=== PATIENT | female | born 1935 | race Caucasian/White ===

== ENCOUNTER 2016-12-29 20:57 | Inpatient (IN) | payer OTHER ==
[~2016-12-29] VITALS: Ht 152.4 cm; Wt 102.9 kg
[~2016-12-29 20:57] MED LIST: APR50 PO; ASCO100C2 PO; ASPI81TA28 PO; CFT250 PO; CHOL100010 PO; FERR1TAB13 PO; ISM20 PO; METO50TA17 PO; MULT-513 PO; NRV5 PO; NTRGSL/4 UT
[2016-12-29] MEDS ORDERED: AMPICILLIN/SULBACTAM SOD INJ 3,000 MG in SODIUM CHLORIDE 0.9% 100ML 100 ML IV ONE (22:00)
[2016-12-29 22:27] LABS: HEMATOCRIT 26.2 % (37-47); MEAN CELL VOLUME 84.5 fL (80-100); MEAN CORPUSCULAR HEMOGLOBIN 28.7 pg (25-34); MEAN PLATELET VOLUME 9.3 fL (7.4-10.4); PLATELET COUNT 124 K/uL (130-400); WHITE BLOOD COUNT 13.29 K/uL (4.8-10.8)
--- NOTE | 2016-12-29 22:33 | DIAGNOSTIC IMAGING REPORT ---
CT HEAD WITHOUT CONTRAST (CT) CLINICAL HISTORY: Altered mental status and weakness COMPARISON STUDY: No previous studies for comparison. TECHNIQUE: Axial CT of the brain is performed from the vertex to the skull base. IV contrast was not administered for this examination. CT DOSE: 537.48 mGy.cm FINDINGS: No intra or extra-axial mass lesions are visualized. There is no CT evidence of acute cortical infarction. There is no evidence of midline shift. There is no acute hemorrhage. No calvarial fractures are visualized. There are patchy white matter hypodensities likely on a small vessel basis. There is an old lacunar infarct in the left thalamus. There is no evidence of pathologic ventricular dilatation. There is no evidence of acute sinusitis IMPRESSION: No acute intracranial findings Electronically signed by: Enrique Devine M.D. 12/29/2016 10:31 PM Dictated Date/Time: 12/29/2016 10:31 PM
[2016-12-29 22:36] LABS: INR 1.4 (0.9-1.1); PARTIAL THROMBOPLASTIN RATIO 1.5; PROTHROMBIN TIME (PATIENT) 15.6 SECONDS (9.0-12.0)
--- NOTE | 2016-12-29 22:48 | DIAGNOSTIC IMAGING REPORT ---
CHEST ONE VIEW PORTABLE CLINICAL HISTORY: Altered mental status. Weakness. COMPARISON STUDY: 05/14/2016 FINDINGS: There is a small left pleural effusion. There are bibasal airspace opacities. There is mild central pulmonary vascular congestion.[ A small subpulmonic right pleural effusion is also suspected. Clinical and radiographic follow-up is recommended. IMPRESSION: 1. Small left pleural effusion and probable small subpulmonic right pleural effusion. 2. Multiple vascular congestion 3. Nonspecific bibasal airspace opacities Electronically signed by: Enrique Devine M.D. 12/29/2016 10:46 PM Dictated Date/Time: 12/29/2016 10:45 PM
[2016-12-29 23:13] LABS: ALKALINE PHOSPHATASE 58 U/L (45-117); ALT/SGPT 28 U/L (12-78); AST/SGOT 27 U/L (15-37); BLOOD UREA NITROGEN 109 mg/dl (7-18); BUN/CREATININE RATIO 20.5 (10-20); CALCIUM 8.7 mg/dl (8.5-10.1); CARBON DIOXIDE 14 mmol/L (21-32); CHLORIDE 112 mmol/L (98-107); CKMB/CK RATIO 16.4 (0-3.0); GLUCOSE 126 mg/dl (70-99); MAGNESIUM 2.7 mg/dl (1.8-2.4); POTASSIUM 5.2 mmol/L (3.5-5.1); SODIUM 140 mmol/L (136-145)
[2016-12-29 23:14] LABS: BASO % 0.1 %; BASO ABS # 0.01 K/uL (0-0.2); COMPLETE YES; ECHINOCYTES 1+; EOS % 0.2 %; IG% 0.3 %; LYMPH ABS # 0.27 K/uL (1.2-3.4); MONO % 5.1 %; NEUT % 92.3 %; TEAR DROP CELLS OCCASIONAL
--- NOTE | 2016-12-29 23:22 | EMERGENCY ROOM VISIT NOTE ---
History Report prepared by Gloria: Leslee Bahena Under the Supervision of: Dr. Felice Marques D.O. First contact with patient: 21:41 Chief Complaint: SWELLING TO EXTREMITY Stated Complaint: KIDNEY PROBLEMS, B/L ANKLE SWELLING History of Present Illness The patient is an 81 year old female who presents to the Emergency Room with complaints of worsening swelling in her bilateral lower legs. She is accompanied by several family members. Her family reports the swelling is due to the patients history of CKD, for which she follows with Dr. Denton at [facility]. She is not currently on dialysis but was started on Lasix by Dr. Denton "just a few days ago". Her family reports her legs now look much more swollen and "red and blistery" and state things seem to have worsened within the past 1 week. The patient was recently hospitalized for 3 days for similar symptoms and was sent home on antibiotics and hypertension medications. Her states "her legs got better when she was in the hospital, but now they look even worse". Her family also reports the patient has fallen twice within the past 2 weeks. She hit her head on her porch last week and fell out of bed yesterday. Her granddaughter reports they noticed her speech was off today and state "she just seems to be really slow, which is unusual for her". They also note her kidney functioning was approximately "12 percent, 1 year ago ". Her primary care physician is Dr. Berg with [facility]. Source of History: patient, family History Limited By: other (confusion) Onset: [employer]OCK HOU[employer] WORK[employer] Position: leg (bilateral) Quality: other (swelling) Timing: worsening Associated Symptoms: + weakness Review of Systems See HPI for pertinent positives & negatives. A total of 10 systems reviewed and were otherwise negative. Past Medical & Surgical Medical Problems: (1) CKD (chronic kidney disease), stage V (2) Diastolic CHF (3) HTN (hypertension) (4) Mitral regurgitation Family History Heart disease Social History Smoking Status: Never Smoker Alcohol Use: occasionally Drug Use: none Marital Status: Housing Status: lives with family Occupation Status: retired Current/Historical Medications Scheduled Amlodipine Besylate (Amlodipine Besylate), 5 MG PO QAM Ascorbic Acid (Vitamin C), 100 MG PO DAILY Aspirin (Aspirin Ec), 81 MG PO DAILY Cefuroxime Axetil (Cefuroxime Axetil), 250 MG PO DAILY Cholecalciferol (Vitamin D), 2,000 INTER.UNIT PO DAILY Ferrous Sulfate (Kp Ferrous Sulfate), 1 TAB PO DAILY Hydralazine HCl (Hydralazine HCl), 50 MG PO TID Isosorbide Mononitrate (Isosorbide Mononitrate), 30 MG PO BID@07,14 Metoprolol Tartrate (Metoprolol Tartrate), 50 MG PO BID Multivitamins/Minerals (Mvi With Minerals), 1 TAB PO DAILY Scheduled PRN Nitroglycerin (Nitrostat), 0.4 MG UT UD PRN for Chest Pain Allergies Coded Allergies: No Known Allergies (Unverified , 08/22/15) Physical Exam Vital Signs Date Time Temp Pulse Resp B/P Pulse Ox O2 Delivery O2 Flow Rate FiO2 12/29/16 23:19 58 18 134/65 96 Room Air 12/29/16 23:13 52 12/29/16 21:18 59 24 134/73 96 Room Air Physical Exam CONSTITUTIONAL/VITAL SIGNS: Reviewed / noted above. GENERAL: Non-toxic in appearance. INTEGUMENTARY: Warm, dry, and Ozone. HEAD: Normocephalic. EYES: without scleral icterus or trauma. ENT/OROPHARYNX: clear and moist. LYMPHADENOPATHY/NECK: Is supple without lymphadenopathy or meningismus. RESPIRATORY: Lungs clear and equal. CARDIOVASCULAR: Regular rate and rhythm. GI/ABDOMEN: Soft and nontender. No organomegaly or pulsatile mass. No rebound or guarding. Normal bowel sounds. EXTREMITIES: Lower extremity edema with erythema, also a few large water blisters on the lower extremities BACK: No CVA tenderness. NEUROLOGICAL: Intact without focal deficits. PSYCHIATRIC: normal affect. MUSCULOSKELETAL: Normally developed with good muscle tone. Medical Decision & Procedures ER Provider Diagnostic Interpretation: This CT scan was reviewed and interpreted by the radiologist and reviewed by myself. CT HEAD WITHOUT CONTRAST (CT) IMPRESSION: No acute intracranial findings Electronically signed by: Enrique Devine M.D. 12/29/2016 10:31 PM This X-Ray was reviewed and interpreted by myself and the radiologist. CHEST ONE VIEW PORTABLE IMPRESSION: 1. Small left pleural effusion and probable small subpulmonic right pleural effusion. 2. Multiple vascular congestion 3. Nonspecific bibasal airspace opacities Electronically signed by: Enrique Devine M.D. 12/29/2016 10:46 PM Laboratory Results 12/29/16 22:10 Red Blood Count 3.10, Mean Corpuscular Volume 84.5, Mean Corpuscular Hemoglobin 28.7, Mean Corpuscular Hemoglobin Concent 34.0, Mean Platelet Volume 9.3, Neutrophils (%) (Auto) 92.3, Lymphocytes (%) (Auto) 2.0, Monocytes (%) (Auto) 5.1, Eosinophils (%) (Auto) 0.2, Basophils (%) (Auto) 0.1, Neutrophils # (Auto) 12.27, Lymphocytes # (Auto) 0.27, Monocytes # (Auto) 0.68, Eosinophils # (Auto) 0.02, Basophils # (Auto) 0.01 12/29/16 22:10 Test 12/29/16 22:10 White Blood Count 13.29 K/uL (4.8-10.8) Red Blood Count 3.10 M/uL (4.2-5.4) Hemoglobin 8.9 g/dL (12.0-16.0) Hematocrit 26.2 % (37-47) Mean Corpuscular Volume 84.5 fL (80-100) Mean Corpuscular Hemoglobin 28.7 pg (25-34) Mean Corpuscular Hemoglobin Concent 34.0 g/dl (32-36) Platelet Count 124 K/uL (130-400) Mean Platelet Volume 9.3 fL (7.4-10.4) Neutrophils (%) (Auto) 92.3 % Lymphocytes (%) (Auto) 2.0 % Monocytes (%) (Auto) 5.1 % Eosinophils (%) (Auto) 0.2 % Basophils (%) (Auto) 0.1 % Neutrophils # (Auto) 12.27 K/uL (1.4-6.5) Lymphocytes # (Auto) 0.27 K/uL (1.2-3.4) Monocytes # (Auto) 0.68 K/uL (0.11-0.59) Eosinophils # (Auto) 0.02 K/uL (0-0.5) Basophils # (Auto) 0.01 K/uL (0-0.2) RDW Standard Deviation 52.2 fL (36.4-46.3) RDW Coefficient of Variation 17.0 % (11.5-14.5) Immature Granulocyte % (Auto) 0.3 % Immature Granulocyte # (Auto) 0.04 K/uL (0.00-0.02) Nucleated RBC Absolute Count (auto) 0.18 K/uL (0-0) Nucleated Red Blood Cells % 1.3 % Tear Drop Cells OCCASIONAL Echinocytes 1+ Prothrombin Time 15.6 SECONDS (9.0-12.0) Prothromb Time International Ratio 1.4 (0.9-1.1) Activated Partial Thromboplast Time 39.4 SECONDS (21.0-31.0) Partial Thromboplastin Ratio 1.5 Anion Gap 14.0 mmol/L (3-11) Estimated GFR () 7.9 Estimated GFR (Non- 6.8 BUN/Creatinine Ratio 20.5 (10-20) Calcium Level 8.7 mg/dl (8.5-10.1) Magnesium Level 2.7 mg/dl (1.8-2.4) Total Bilirubin 0.3 mg/dl (0.2-1) Direct Bilirubin 0.1 mg/dl (0-0.2) Aspartate Amino Transf (AST/SGOT) 27 U/L (15-37) Alanine Aminotransferase (ALT/SGPT) 28 U/L (12-78) Alkaline Phosphatase 58 U/L (45-117) Total Creatine Kinase 116 U/L (26-192) Creatine Kinase MB 19.0 ng/ml (0.5-3.6) Creatine Kinase MB Ratio 16.4 (0-3.0) Troponin I < 0.015 ng/ml (0-0.045) Total Protein 6.6 gm/dl (6.4-8.2) Albumin 2.8 gm/dl (3.4-5.0) Lipase 314 U/L (73-393) Thyroid Stimulating Hormone (TSH) 5.360 uIu/ml (0.300-4.500) Laboratory results as stated above per my review. Medications Administered Medications (Trade) Dose Ordered Sig/Cj Route Start Time Stop Time Status Last Admin Dose Admin Ampicillin Sodium/ Sulbactam Sodium/ Sodium Chloride (Unasyn Inj/Nss 100ml) 108 ml @ 200 mls/hr ONE ONCE IV 12/29/16 22:00 12/29/16 22:32 DC 12/29/16 22:36 200 MLS/HR ECG Indication: weakness Rate (beats per minute): 60 Rhythm: normal sinus (normal sinus rhythm) Findings: RBBB, T-wave inversion (Anterolateral) ED Course 2142: Previous medical records were reviewed. The patient was evaluated in room C10. A complete history and physical examination was performed. 2199: Ampicillin Sodium/Sulbactam Sodium 3000 mg/Sodium Chloride 108 ml @ 200 mls/hr IV. 0: I discussed the patients case with Lizet Clement. The patient will be further evaluated. Medical Decision Etiologies such as cellulitis, abscess, MRSA infection, DVT, necrotizing fasciitis, dermatitis, drug eruption, as well as others were entertained.. This is a 81-year-old female who presents to the ED with a chief complaint of lower extremity edema and redness. The patient is also been somewhat confused recently. She fell earlier this week. The patient has known renal insufficiency. She has been seeing on Coumadin for this. Her vital signs are normal. Her exam reveals lower extremity edema with evidence of bilateral cellulitis with skin breakdown and weeping. There are also some Water filled bullae. The patient's EKG shows a normal sinus rhythm with some T-wave inversions anteriorly. These are worse than previous EKGs. Chest x-ray is nonspecific findings but nothing acute. Chest CT scan of the head did not show acute disease. Hemoglobin is 8.9. White blood cell count is 13.2. Potassium is 5.2. The BUN is 109 and creatinine is 5.4. Troponin is negative. The patient was told results the test per she was started with IV Unasyn. The patient will be seen by the hospitalist for further evaluation and care. Consults Time Called: 2314 Consulting Physician: Lizet Clement Returned Call: 2320 I discussed the patients case with Lizet Clement. The patient will be further evaluated. Impression Primary Impression: Uremia Additional Impressions: Confusion Weakness Fall Cellulitis of both lower extremities CKD (chronic kidney disease), stage V Scribe Attestation The scribe's documentation has been prepared under my direction and personally reviewed by me in its entirety. I confirm that the note above accurately reflects all work, treatment, procedures, and medical decision making performed by me. Departure Information Dispostion Being Evaluated By Hospitalist Referrals Burke Berg MD (PCP) Patient Instructions My [facility] Problem Qualifiers
[2016-12-29] MEDS ORDERED: SODIUM BICARB 8.4% INJ 50 MEQ/50 ML SYR IV STA (23:31)
[2016-12-29] MEDS ORDERED: DEXTROSE 50% 50 ML SYR IV STA (23:35)
[2016-12-29] MEDS ORDERED: INSULIN HUMAN REGULAR PER UNIT 10 UNITS in SYRINGE 9.9 ML IV STA (23:37)
[2016-12-29] MEDS ORDERED: FRS/40 PO (23:52)
[2016-12-29] MEDS ORDERED: FERR325T5 PO (23:55)
[2016-12-29] MEDS ORDERED: ASCO500C43 PO (23:55)
[2016-12-29] MEDS ORDERED: ISOS60TA25 PO (23:56)
[2016-12-29] MEDS ORDERED: ASPI81TA28 PO (23:56)
[2016-12-29] MEDS ORDERED: NovoLIN-R INSULIN PER UNIT CHARGE ONE (23:59)
[2016-12-30] VITALS (9 sets, daily range): BP systolic 103–157; BP diastolic 52–68; PULSE 56–79; TEMP 34.2–36.5; O2SAT 94–99; Ht 152.4 cm; Wt 102.9 kg
[2016-12-30] MEDS ORDERED: PIPERACILLIN/TAZOBACTAM 4.5 GM/100ML D5W IV STA (00:18)
[2016-12-30] MEDS ORDERED: ACETAMINOPHEN 325 MG TAB PO PRN (00:30)
[2016-12-30] MEDS ORDERED: NITROGLYCERIN 0.4 MG SL PER TAB CHARGE SL PRN (00:30)
[2016-12-30] MEDS ORDERED: ALBUT/IPRATROP 3MG/0.5MG NEB 3 ML VIAL INH PRN (00:30)
[2016-12-30] MEDS ORDERED: TRAMADOL HCL 50 MG TAB PO PRN (00:30)
[2016-12-30] MEDS ORDERED: ONDANSETRON INJ 2 MG/ML 2 ML VIAL IV PRN (00:30)
[2016-12-30] MEDS ORDERED: HYDROmorphone INJ 0.5 MG/0.5 ML SYR IV PRN (00:30)
[2016-12-30] MEDS ORDERED: ALBUT/IPRATROP 3MG/0.5MG NEB 3 ML VIAL INH STA (01:08)
[2016-12-30] MEDS ORDERED: PATIENT'S HEIGHT AND/OR WEIGHT NEEDED SCH (02:00)
--- NOTE | 2016-12-30 02:43 | HISTORY & PHYSICAL EXAMINATION ---
DATE OF ADMISSION: 12/29/2016 PATIENT'S PRIMARY CARE DOCTOR: Dr. Berg. History obtained from patient, patient's family and records. CHIEF COMPLAINT: Bilateral leg swelling and infection. HISTORY OF PRESENT ILLNESS: Medical history significant for ESRD (baseline crea 4), hypertension, chronic anemia (baseline hemoglobin of 8-9), chronic diastolic heart failure as per records (EF of 65-70%, 2016). hx SVT as per records. Recent confinement May 2016 for hypertensive urgency. As per records, the last few weeks increasing weight gain of 20 pounds of fluid, worsening leg swelling. On a recent outpx [facility] visit about 2 weeks ago, dialysis recommended. The patient was unsure about dialysis; concerns about procedure that it might hurt. Progressive donald leg swelling, weight gain over the next few weeks. some sob. belly bloated, no abd pain. Patient also noted to be a little slow w/ her speech. About a week ago, increased leg swelling noted w/ blister appearance and subsequent rupture. LE wounds noted with foul-smelling drainage. No fever, no chills. Patient urged by family to consult ER. At the Emergency Room, the patient received Unasyn for leg wound infection. MEDICAL HISTORY: As above SURGICAL HISTORY: None. HOME MEDICATIONS: Include vitamin C, aspirin, vitamin D, ferrous sulfate, multivitamins, and Nitrostat. ALLERGIES: No known drug allergies. FAMILY HISTORY: Heart disease. PERSONAL SOCIAL HISTORY: Nonsmoker, no chronic intake of alcoholic beverages. 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 PHYSICAL EXAMINATION: VITAL SIGNS: Blood pressure was noted to be 134/65, pulse rate 58, RR 18, temperature 37 O2 sats 96% on room air. SKIN: Noted to be sallow. eating crackers SKIN : Pallor. HEENT : pale palpebral conjunctivae. Dry mucosa. NECK: JVD not assessed, supple. CHEST: Decreased effort. HEART: Bradycardic. ABDOMEN: Some distention, non-tender. EXTREMITIES: Bilateral lower extremity edema, yellow crusty lesions on the legs with foul-smelling drainage. NEUROLOGIC: No gross focality except for some slowed speech and response to questions. LABS: Hemoglobin was noted to be 8.9, hematocrit 26.2, white cells 13.29, platelets 124. Sodium 140, potassium 5.2, chloride 112, CO2 14, BUN 109, creatinine 5.4 from baseline of 4, glucose 126. Ammonia was 19. trop 0 IMAGING DATA: Chest x-ray showed some congestion, pleural effusion. CT of the head - no acute pathology, old lacunar infarct, left thalamus EKG rate-60, NSR, RBB, no ischemia ASSESSMENT AND PLAN: 1. hyperkalemia ESRD progressive symptoms of uremia 2. LE Cellulitis secondary to bilateral leg swelling from ESRD possible sepsis past history of Pseudomonas infection ro dvt 3. chronic diastolic HF, fluid overload from cardiorenal syndrome unresponsive to home diuretic tx 4. HTN, stable 5. old cerebrovascular accident on CAT scan 6. thrombocytopenia 7. anemia secondary to chronic kidney disease, hemoglobin baseline PLAN: PCU recheck K after Regular insulin, Na Bicarb now baseline UA, renal US Nephrology consult Patient might consider dialysis pending discussion with Nephrology. PX worried about potential pain from prospective vascular procedures. CS, Doxycycline, Zosyn WC nurse consult LE Venous dopplers ro dvt hold Norvasc for now (RE leg swelling) monitor BP off CCB Decrease maintenance BB dosage RE bradycardia. DVT prophylaxis. SCDs RE thrombocytopenia DNR. Px requesting updates from providers. Mr. Tony King at . MTDD
[2016-12-30] MEDS ORDERED: DOXYCYCLINE IV 100 MG in DEXTROSE 5% 100ML 100 ML IV STA (02:55)
[2016-12-30] MEDS ORDERED: PIPERACILL/TAZOBAC IV 3.375 GM in DEXTROSE 5% 100ML IV ONE (04:00)
[2016-12-30 04:08] LABS: HEMATOCRIT 25.9 % (37-47); MEAN CELL VOLUME 84.4 fL (80-100); MEAN CORPUSCULAR HEMOGLOBIN 28.7 pg (25-34); MEAN PLATELET VOLUME 9.8 fL (7.4-10.4); PLATELET COUNT 125 K/uL (130-400); RED BLOOD COUNT 3.07 M/uL (4.2-5.4); WHITE BLOOD COUNT 13.36 K/uL (4.8-10.8)
[2016-12-30 04:29] LABS: BASO % 0.1 %; BASO ABS # 0.01 K/uL (0-0.2); COMPLETE YES; ECHINOCYTES 1+; EOS % 0.1 %; IG% 0.3 %; LYMPH % 1.8 %; LYMPH ABS # 0.24 K/uL (1.2-3.4); MONO % 5.1 %; NEUT % 92.6 %
[2016-12-30 04:36] LABS: BLOOD UREA NITROGEN 102 mg/dl (7-18); BUN/CREATININE RATIO 18.6 (10-20); CALCIUM 8.3 mg/dl (8.5-10.1); CARBON DIOXIDE 15 mmol/L (21-32); CHLORIDE 113 mmol/L (98-107); GLUCOSE 117 mg/dl (70-99); POTASSIUM 4.8 mmol/L (3.5-5.1); SODIUM 143 mmol/L (136-145)
--- NOTE | 2016-12-30 06:56 | DIAGNOSTIC IMAGING REPORT ---
RENAL ULTRASOUND HISTORY: Renal insufficiency renal failure COMPARISON: None. FINDINGS: Right kidney: Maximum dimension 5.7 cm. General atrophy. No evidence for hydronephrosis. Normal corticomedullary differentiation and cortical thickness. Left kidney: Maximum dimension 8.5 cm. Mild atrophy. No evidence for hydronephrosis. Normal corticomedullary differentiation and cortical thickness. Bladder: No bladder wall thickening. The bilateral ureteral jets were identified. IMPRESSION: Atrophy of the kidneys. No evidence for hydronephrosis. Electronically signed by: Germain Bloom M.D. 12/30/2016 6:55 AM Dictated Date/Time: 12/30/2016 6:53 AM
--- NOTE | 2016-12-30 07:02 | DIAGNOSTIC IMAGING REPORT ---
ULTRASOUND BILATERAL LOWER EXTREMITY VENOUS CLINICAL HISTORY: Lower extremity swelling. COMPARISON STUDY: Bilateral lower extremity venous ultrasound dated 08/23/2015. TECHNIQUE: Real-time, grayscale, and color Doppler sonography of the deep veins of the right and left lower extremity was performed from the inguinal crease to the calf. Compression and augmentation were utilized. FINDINGS: There is no sonographic evidence of deep venous thrombosis identified in the right or left lower extremity. The common femoral, superficial femoral, and popliteal veins are patent and normally compressible bilaterally. The greater saphenous vein and the profunda femoris vein at the junction with the common femoral vein are clear in both legs. The visualized calf veins are patent bilaterally. Soft tissue edema is present in both legs. IMPRESSION: There is no sonographic evidence of deep venous thrombosis identified in the right or left lower extremity. Electronically signed by: Waylon Fam M.D. 12/30/2016 7:01 AM Dictated Date/Time: 12/30/2016 7:01 AM
--- NOTE | 2016-12-30 07:17 | DIAGNOSTIC IMAGING REPORT ---
Limited abdominal ultrasound ASCITES-ABDOMEN LIMITED CLINICAL HISTORY: abd distension ascites TECHNIQUE: Survey abdominal ultrasound COMPARISON STUDY: None FINDINGS: Trace amount of scattered ascites. Evaluation of pelvis essentially nondiagnostic due to oral and bowel content. IMPRESSION: Trace ascites. Limited evaluation of the pelvis due to overlying bowel content. Electronically signed by: Germain Bloom M.D. 12/30/2016 7:15 AM Dictated Date/Time: 12/30/2016 7:14 AM
[2016-12-30] MEDS: CALCIUM ACETATE 667MG GELCAP PO SCH ×3 (08:14→16:45)
[2016-12-30] MEDS: FERROUS SULFATE 325 MG TAB PO SCH (08:20)
[2016-12-30] MEDS: ASPIRIN 81 MG ECTAB PO SCH (08:20)
[2016-12-30] MEDS: METOPROLOL TARTRATE 50 MG TAB PO SCH ×2 (08:21→20:59)
[2016-12-30] MEDS: ISOSORBIDE MONONITRATE 60 MG TABCR PO SCH (08:22)
[2016-12-30] MEDS: CEROVITE ADV FORMULA TAB PO SCH (08:22)
[2016-12-30] MEDS: ALBUMIN 25% 50 ML with FUROSEMIDE INJ 40 MG IV SCH ×6 (08:23→21:01)
--- NOTE | 2016-12-30 08:23 | NEPHROLOGY CONSULTATION ---
DATE OF CONSULTATION: 12/30/2016 ATTENDING OF RECORD: Dr. Kennedy. REASON FOR CONSULTATION: CKD stage V. This is an 81-year-old female who follows in my outpatient clinic, has had progressive decline of her kidney function secondary to advanced age and uncontrolled hypertension. The patient's leg swelling continues to worsen. I have spoken to her numerous times about initiation of dialysis and what it entails. The patient has always said she does not want dialysis. Her has been in the room every time and is aware of her previous decisions. The patient now says that she is willing to consider doing dialysis but she is afraid of the procedure of the tunneled dialysis catheter. The patient's appetite is still good, does have some intermittent nausea and vomiting. Does have shortness of breath with exertion with significant swelling in the legs with blisters which appear infected with cellulitis. PAST MEDICAL HISTORY: CKD stage V, not on dialysis, severe mitral regurgitation, hypertension, diastolic heart failure. PAST SURGICAL HISTORY: None. FAMILY HISTORY: Significant for heart disease. SOCIAL HISTORY: No smoking, no alcohol, no drugs. Lives at home with her . REVIEW OF SYSTEMS: No significant weight loss. Positive fatigue. Positive shortness of breath. Positive swelling. No chest pain. Positive intermittent nausea and vomiting. No itching. No headaches. No dysphagia. All other review of systems otherwise negative. CURRENT MEDICATIONS: Doxycycline 100 mg IV b.i.d., Zosyn 3.375 IV q. 12, hydralazine 50 mg p.o. t.i.d., iron 325 mg daily, Imdur 60 mg daily, Lopressor 12.5 mg p.o. b.i.d., multivitamin daily, aspirin 81 mg daily. PHYSICAL EXAMINATION: VITAL SIGNS: Temperature 36.5, pulse 65, respiratory rate is 22, blood pressure is 157/64, satting 96% on room air. GENERAL: Awake, alert, oriented x3. EYES: No scleral icterus. ENT: Moist mucous membranes. NECK: Supple. PULMONARY: Decreased breath sounds at the bases. CARDIAC: Bradycardia. ABDOMEN: Mild abdominal distention. EXTREMITIES: Significant lower extremity edema with signs of cellulitis and open blisters. NEUROLOGIC: Answers questions appropriately but does answer them slowly, appears somewhat confused. LABORATORIES: White count is 13,000, H\T\H 8.8 and 25.9, platelet count is 125. Sodium level is 143, potassium is 4.8, chloride is 113, bicarbonate is 15, BUN is 102, creatinine is 5.5, glucose 117, calcium is 8.3. Troponin is negative x2. Ammonia level is 19. CK is 116. Albumin is 2.8. TSH is 5.3. INR is 1.4. Chest x-ray shows small left pleural effusion, probable small subpulmonic right pleural effusion, multiple vascular congestion. IMPRESSION AND PLAN: 1. Chronic kidney disease stage V. Creatinine has progressively worsened with worsening lower extremity swelling with signs of possible underlying cellulitis, now on IV antibiotics with a BUN above 100 and a creatinine of 5.5 with signs of volume overload. The patient has told me in the past that she does not want dialysis. The patient has not been enthusiastic about receiving healthcare throughout her entire life. Her has been in the room during these conversations and is aware of her previous decision. The patient does seem slow to answer questions and appears somewhat confused. The patient now says that she is willing to do dialysis, however, is scared of the procedure for the tunneled dialysis catheter. Unclear how well she would do on dialysis; however, I will have the vascular surgery department come and explain the procedure to her to see if she is willing to do the procedure, and if she is willing to do the procedure, I am willing to dialyze her. However, given her previous history and her previous conversations, unclear if she will be compliant with dialysis and/or continue to do dialysis long-term. We will contact vascular surgeons, and if able to do the tunneled dialysis catheter today, we will plan on a short treatment today. In terms of her volume overload, we will give her albumin and Lasix to try to help diurese the patient. Okay with the creatinine worsening since dialysis may be an option for her. If dialysis is not an option, would recommend palliative care consultation with hospice. 2. KEYON: We will also start the patient on phosphate binders to help control the phosphorous levels. 3. Anemia of end-stage renal disease. Hemoglobin levels are trending down. We will hold off on starting Procrit at this time since I need to sit down and talk to her about the side effects and risks of Procrit. 4. Metabolic acidosis-unable to give sodium bicarb given her significant volume overloaded state. will correct with dialysis if pt agrees to the tunneled dialysis catheter. For now, we will focus in on whether or not she is willing to do the tunneled dialysis catheter, and if she is, we will plan on a short dialysis treatment and dialyze her to help with her mental status and volume status and then we can decide at that point whether she would like chronic dialysis or not. Appreciate consultation. BERNADINE
[2016-12-30] MEDS ORDERED: PIPERACILL/TAZOBAC CONSULT ACTIVE PRN (09:00)
[2016-12-30 12:07] LABS: URINE APPEARANCE CLOUDY (CLEAR); URINE BILIRUBIN NEG (NEG); URINE COLOR YELLOW; URINE NITRITE NEG (NEG); URINE SPECIFIC GRAVITY 1.019 (1.000-1.030); UROBILINOGEN NEG (NEG); ZZUR CULT IF INDIC CLEAN CATCH NO
[2016-12-30 12:11] LABS: MANUAL MICROSCOPIC REQUIRED? NO; REVIEW REQ? NO
--- NOTE | 2016-12-30 13:11 | Progress Note ---
Internal Med Progress Note Date of Service: Dec 30, 2016. Provider Documentation: SUBJECTIVE: Patient is having difficulty swallowing food, says not able to get it down. Some coughing on and off while eating. No odynophagia. SOB +, no cough. No chest pain, fever, chills. Mental status- Slow to respond, oriented to place, person. Tele- sinus mukesh with HR dropping to 40s OBJECTIVE: Vital Signs-as noted below Exam: General-AAOX2, slow to respond, Mild respiratory distress Neck-Supple Lungs-AEBE decreased, few crackles Heart-S1, S2 normal Abdomen-Soft, non tender, non distended, BS present Extremities-B.L Lower extremity edema + dressing + - cellulitis Neuro- Slow to respond, Grossly no deficits Skin- Yeast infection b/l groin/Left breast Lab data as noted below. ASSESSMENT & PLAN: LOWER EXTREMITY CELLULITIS Secondary to Bilateral Lower extremity swelling from ESRD Patient has had B/L Lower ext cellulitis for more than a year, would not allow any one to look at it. Had blister which bursted with yellowish discharge -Afebrile -On IV Zosyn/Doxycycline. Norvasc held due to LE edema. -Cultures ordered, Wound care on board ACUTE ON CHRONIC DIASTOLIC CHF -Fluid overloaded in setting of CKD-V, progressively worsening and refusing dialysis -IV lasix/Albumin given. -Mx as below CKD-V Patient has been offered dialysis in past, but she has refused multiple times per Dr Denton and the discussions have been in front of who is aware about it. Today dialysis option was discussed by Dr Denton, me --she says she is okay with dialysis but doesnt want catheter. Vascular sx was consulted for catheter and she refused to sign the consent form as she was scared. -Not sure how would she do on dialysis as not taking care of her self, doubt compliance with dialysis, follow ups, not able to take care of her that well due to his age. -Discussed with family about options of dialysis /palliative care. Leaning more towards palliative care as knowing their mother she would not want to go through dialysis and would not do well on it, also would not be willing to go to a [facility]. -Phosphate binders added SINUS BRADYCARDIA Asymptomatic -Beta blockers held -Monitor DYSPHAGIA Patient does have difficulty swallowing- high risk of aspiration. No odynophagia -Will discontinue diet and ordered swallow/speech evaluation -Aspiration precautions FUNGAL INFECTION B/L Groins, Left breast -Clotrimazole cream HTN- Stable HX OF OLD CVA Per CT scan THROMBOCYTOPENIA/ANEMIA OF CHRONIC KIDNEY DISEASE -No signs of active bleeding -Nephrology on board DVT prophylaxis. SCDs RE thrombocytopenia DNR/DNI Px requesting updates from providers. Mr. Tony King at . Did a family meeting with both sons and daughter in law- discussed about options - Dialysis/Palliative care. Leaning towards palliative care. Will let me know by tomorrow after discussing with other son and daughter. Vital Signs: Date Time Temp Pulse Resp B/P Pulse Ox O2 Delivery O2 Flow Rate FiO2 12/30/16 12:50 36.4 59 16 115/52 98 Nasal Cannula 2.0 12/30/16 12:00 99 Nasal Cannula 2.0 12/30/16 08:00 96 Room Air 12/30/16 07:48 36.4 56 16 113/68 96 Room Air 12/30/16 03:30 36.5 65 22 157/64 96 Room Air 12/29/16 23:19 58 18 134/65 96 Room Air 12/29/16 23:13 52 12/29/16 21:18 59 24 134/73 96 Room Air Lab Results: Results Past 24 Hours Test 12/29/16 22:10 12/29/16 23:55 12/30/16 00:00 12/30/16 03:55 Range/Units White Blood Count 13.29 13.36 4.8-10.8 K/uL Red Blood Count 3.10 3.07 4.2-5.4 M/uL Hemoglobin 8.9 8.8 12.0-16.0 g/dL Hematocrit 26.2 25.9 37-47 % Mean Corpuscular Volume 84.5 84.4 80-100 fL Mean Corpuscular Hemoglobin 28.7 28.7 25-34 pg Mean Corpuscular Hemoglobin Concent 34.0 34.0 32-36 g/dl Platelet Count 124 125 130-400 K/uL Mean Platelet Volume 9.3 9.8 7.4-10.4 fL Neutrophils (%) (Auto) 92.3 92.6 % Lymphocytes (%) (Auto) 2.0 1.8 % Monocytes (%) (Auto) 5.1 5.1 % Eosinophils (%) (Auto) 0.2 0.1 % Basophils (%) (Auto) 0.1 0.1 % Neutrophils # (Auto) 12.27 12.37 1.4-6.5 K/uL Lymphocytes # (Auto) 0.27 0.24 1.2-3.4 K/uL Monocytes # (Auto) 0.68 0.68 0.11-0.59 K/uL Eosinophils # (Auto) 0.02 0.02 0-0.5 K/uL Basophils # (Auto) 0.01 0.01 0-0.2 K/uL RDW Standard Deviation 52.2 51.5 36.4-46.3 fL RDW Coefficient of Variation 17.0 17.0 11.5-14.5 % Immature Granulocyte % (Auto) 0.3 0.3 % Immature Granulocyte # (Auto) 0.04 0.04 0.00-0.02 K/uL Nucleated RBC Absolute Count (auto) 0.18 0.18 0-0 K/uL Nucleated Red Blood Cells % 1.3 1.3 % Tear Drop Cells OCCASIONAL Echinocytes 1+ 1+ Prothrombin Time 15.6 9.0-12.0 SECONDS Prothromb Time International Ratio 1.4 0.9-1.1 Activated Partial Thromboplast Time 39.4 21.0-31.0 SECONDS Partial Thromboplastin Ratio 1.5 Sodium Level 140 143 136-145 mmol/L Potassium Level 5.2 4.8 3.5-5.1 mmol/L Chloride Level 112 113 98-107 mmol/L Carbon Dioxide Level 14 15 21-32 mmol/L Anion Gap 14.0 15.0 3-11 mmol/L Blood Urea Nitrogen 109 102 7-18 mg/dl Creatinine 5.40 5.50 0.60-1.20 mg/dl Estimated GFR () 7.9 7.7 Estimated GFR (Non- 6.8 6.6 BUN/Creatinine Ratio 20.5 18.6 10-20 Random Glucose 126 117 70-99 mg/dl Calcium Level 8.7 8.3 8.5-10.1 mg/dl Magnesium Level 2.7 1.8-2.4 mg/dl Total Bilirubin 0.3 0.2-1 mg/dl Direct Bilirubin 0.1 0-0.2 mg/dl Aspartate Amino Transf (AST/SGOT) 27 15-37 U/L Alanine Aminotransferase (ALT/SGPT) 28 12-78 U/L Alkaline Phosphatase 58 45-117 U/L Total Creatine Kinase 116 26-192 U/L Creatine Kinase MB 19.0 0.5-3.6 ng/ml Creatine Kinase MB Ratio 16.4 0-3.0 Troponin I < 0.015 < 0.015 0-0.045 ng/ml Total Protein 6.6 6.4-8.2 gm/dl Albumin 2.8 3.4-5.0 gm/dl Lipase 314 73-393 U/L Thyroid Stimulating Hormone (TSH) 5.360 0.300-4.500 uIu/ml Free Thyroxine 1.01 0.80-1.60 ng/dl Lactic Acid Level 1.3 0.4-2.0 mmol/L Ammonia 19.0 11-32 umol/L Urine Color YELLOW Urine Appearance CLOUDY CLEAR Urine pH 5.0 4.5-7.5 Urine Specific [place] 1.019 1.000-1.030 Urine Protein 1+ NEG Urine Glucose (UA) NEG NEG Urine Ketones NEG NEG Urine Occult Blood NEG NEG Urine Nitrite NEG NEG Urine Bilirubin NEG NEG Urine Urobilinogen NEG NEG Urine Leukocyte Esterase NEG NEG Urine WBC (Auto) 1-5 0-5 /hpf Urine RBC (Auto) 5-10 0-4 /hpf Urine Hyaline Casts (Auto) 1-5 0-5 /lpf Urine Epithelial Cells (Auto) 5-10 0-5 /lpf Urine Bacteria (Auto) NEG NEG Est Creatinine Clear Calc Drug Dose 6.8 ml/min Test 12/30/16 08:26 Range/Units Phosphorus Level 6.5 2.5-4.9 mg/dl 25-Hydroxy Vitamin D Total 30.0 30-100 ng/ml Parathyroid Hormone (Intact) 210.7 11.1-79.5 pg/mL Microbiology Results 12/29/16 Blood Culture, Received Pending 12/29/16 Blood Culture, Received Pending 12/30/16 Gram Stain - Final, Resulted 12/30/16 Wound Culture, Resulted Pending
[2016-12-30] MEDS: CLOTRIMAZOLE 1% CR 15 GM TUBE EXT SCH (14:39)
--- NOTE | 2016-12-30 15:55 | Surgery Consultation ---
Consultation Date of Service Dec 30, 2016. (Kristi Samayoa, MAURIZIO) Chief Complaint ESRD, need permcath (Kristi Samayoa PA-C) History of Present Illness The patient is a 81 year old female admitted with ESRD and BLE cellulitis/edema , seen in consultation today for permcath placement. Pt stated this morning she was unsure whether she wanted to go through with catheter insertion d/t the risks involved. She apparently discussed further with Dr Denton and is now agreeable. Pt denies KEEN, fever, chills, chest pain, SOB, abd pain, N/V, rest pain, claudication, other complaints. (Kristi Samayoa, MAURIZIO) Vitals Vital Signs Past 12 Hours Date Time Temp Pulse Resp B/P Pulse Ox O2 Delivery O2 Flow Rate FiO2 12/30/16 12:50 36.4 59 16 115/52 98 Nasal Cannula 2.0 12/30/16 12:00 99 Nasal Cannula 2.0 12/30/16 08:00 96 Room Air 12/30/16 07:48 36.4 56 16 113/68 96 Room Air (Kristi Samayoa, MAURIZIO) Allergies Coded Allergies: No Known Allergies (Unverified , 08/22/15) Home Medications Scheduled Amlodipine Besylate (Amlodipine Besylate), 5 MG PO QAM Ascorbic Acid (Vitamin C), 100 MG PO DAILY Ascorbic Acid (Vitamin C 500 mg), 500 MG PO DAILY Aspirin (Aspirin Ec), 81 MG PO 4XWK Ferrous Sulfate (Ferrous Sulfate), 325 MG PO DAILY Furosemide (Lasix), 40 MG PO DAILY Hydralazine HCl (Hydralazine HCl), 50 MG PO TID Isosorbide Mononitrate Ext Rel (Imdur Ext Rel), 60 MG PO QAM Metoprolol Tartrate (Metoprolol Tartrate), 50 MG PO BID Multivitamins/Minerals (Mvi With Minerals), 1 TAB PO DAILY Scheduled PRN Nitroglycerin (Nitrostat), 0.4 MG UT UD PRN for Chest Pain Problem List Medical Problems: (1) ARF (acute renal failure) (2) CKD (chronic kidney disease), stage V (3) Diastolic CHF (4) HTN (hypertension) (5) Hyperkalemia (6) Mitral regurgitation (Kristi Samayoa PA-C) Surgical / Medical History Hx Cardiac Surgery: No Hx Abdominal Surgery: No Hx Cancer Surgery: No Hx Thoracic Surgery: No Hx Orthopedic: No Hx Urinary Tract Surgery: No HX Other Surgery: No Past Medical/Surgical History: Hypertension, Kidney Disease (Kristi Samayoa PA-C) Family History Heart disease (Kristi Samayoa PA-C) Heart disease (Ivan Acosta M.D.) Social History Smoking Status: Unknown if Ever Smoked Hx Tobacco Use In Past Year?: No Hx Alcohol Use - Type & Amnt: No Hx Substance Use -Type & Amnt: No (Kristi Samayoa, MAURIZIO) Review of Systems Constitutional: + malaise, No chills, No fever Skin: + change in color Eyes: No visual changes ENMT: No sore throat Respiratory: + BHATT, No cough, No hemoptysis, No short of breath Cardiovascular: + edema, No chest pain, No intermittent claudication, No palpitations, No syncope Gastrointestinal: No abdominal pain, No diarrhea, No nausea, No vomiting Genitourinary - Female: No dysuria Neurologic: No dizziness, No numbness, No tingling (Kristi Samayoa, JIMBOC) Physical Exam Constitutional: General Apperance: well-nourished, well-developed Level of Distress: NAD, chronically ill Psychiatric: Mental Status: active & alert, normal mood, normal affect Orientation: oriented except where noted, to time, to place, to person Memory: recent memory normal, remote memory normal Head: normocephalic, atraumatic Eyes: EOM: EOMI ENMT: normal ENT inspection, hearing grossly normal Neck: supple, trachea midline Lungs: Respiratory effort: no dyspnea Auscultation: no wheezing, no rales/crackles Cardiovascular: Apical Impulse: not displaced Heart Auscultation: RRR, no rubs, no gallops Peripheral Pulses: Pulses: full and equal, in all extremities except if noted Bruits: none appreciated Carotid Pulse: normal on the left, normal on the right Radial Pulse: normal on the left, normal on the right Femoral Pulse: normal on the left, normal on the right Posterior Tibialis Pulse: pertinent finding (nonpalpable d/t edema) Dorsalis Pedis Pulse: pertinent finding (nonpalpable d/t edema) Abdomen: Bowel Sounds: normal Inspection & Palpation: soft, non-distended, no tenderness, guarding & rebound Musculoskeletal: normal strength (5/5 throughout), normal tone Extremities: Upper Right: no cyanosis, no edema, no varicosities Upper Left: no cyanosis, no edema, no varicosities Lower Right: no cyanosis, no varicosities, edema Lower Left: no cyanosis, no varicosities, no palpable cord, edema Neurologic: Cranial Nerves: grossly intact (Kristi Samayoa, PA-C) Assessment and Plan ASSESSMENT and PLAN: ESRD Pt to have permcath inserted on . Discussed with pt and family. She is agreeable to permcath insertion. (Kristi Samayoa, PA-C)
[2016-12-30] MEDS: PIPERACILL/TAZOBAC IV 3.375 GM in DEXTROSE 5% 100ML IV SCH (16:44)
[2016-12-30] MEDS: DOCUSATE SODIUM 100 MG CAP PO SCH (20:58)
[2016-12-30] MEDS: NYSTATIN SUSP 500,000 U/5 ML UDC PO SCH (20:59)
[2016-12-30] MEDS: DOXYCYCLINE IV 100 MG in DEXTROSE 5% 100ML 100 ML IV SCH (21:49)
[2016-12-31] VITALS (40 sets, daily range): BP systolic 101–154; BP diastolic 44–81; PULSE 70–91; TEMP 35.5–36.4; O2SAT 83–99
[2016-12-31] MEDS: PIPERACILL/TAZOBAC IV 3.375 GM in DEXTROSE 5% 100ML IV SCH ×2 (04:15→16:36)
[2016-12-31 07:25] LABS: HEMATOCRIT 21.6 % (37-47); MEAN CELL VOLUME 82.8 fL (80-100); MEAN CORPUSCULAR HEMOGLOBIN 28.7 pg (25-34); MEAN CORPUSCULAR HGB CONC 34.7 g/dl (32-36); MEAN PLATELET VOLUME 9.8 fL (7.4-10.4); PLATELET COUNT 107 K/uL (130-400); RED BLOOD COUNT 2.61 M/uL (4.2-5.4); WHITE BLOOD COUNT 14.14 K/uL (4.8-10.8)
[2016-12-31] MEDS: CALCIUM ACETATE 667MG GELCAP PO SCH ×3 (07:30→16:08)
[2016-12-31 08:14] LABS: BUN/CREATININE RATIO 18.9 (10-20); CALCIUM 8.7 mg/dl (8.5-10.1); CREATININE 5.6 mg/dl (0.60-1.20); POTASSIUM 5.7 mmol/L (3.5-5.1)
[2016-12-31] MEDS: FERROUS SULFATE 325 MG TAB PO SCH (09:00)
[2016-12-31] MEDS: DOCUSATE SODIUM 100 MG CAP PO SCH ×2 (09:00→21:00)
[2016-12-31] MEDS: NYSTATIN SUSP 500,000 U/5 ML UDC PO SCH ×4 (09:00→23:19)
[2016-12-31] MEDS: ALBUMIN 25% 50 ML with FUROSEMIDE INJ 40 MG IV SCH ×6 (09:00→20:59)
[2016-12-31] MEDS: CLOTRIMAZOLE 1% CR 15 GM TUBE EXT SCH ×2 (09:00→23:19)
[2016-12-31] MEDS: CEROVITE ADV FORMULA TAB PO SCH (09:00)
[2016-12-31] MEDS: ASPIRIN 81 MG ECTAB PO SCH (09:00)
[2016-12-31] MEDS: ISOSORBIDE MONONITRATE 60 MG TABCR PO SCH (09:00)
[2016-12-31] MEDS: METOPROLOL TARTRATE 50 MG TAB PO SCH ×2 (09:00→21:00)
--- NOTE | 2016-12-31 09:12 | Nephrology Progress Note ---
Nephrology Progress Note Date of Service: Dec 31, 2016. Subjective 81 yo female with ckd stage 5, weeping wounds on legs with significant edema, excoriations of the buttocks area from previous incontinence, dysphagia, hypothermia last night requiring a laura hugger. decreased urine output despite the albumin and lasix. worsening hyperkalemia and acidosis. Objective Date Time Temp Pulse Resp B/P Pulse Ox O2 Delivery O2 Flow Rate FiO2 12/31/16 04:06 36.2 12/31/16 04:01 Nasal Cannula 2.0 12/31/16 03:37 36.3 91 18 116/67 93 Nasal Cannula 2.0 12/31/16 00:00 Nasal Cannula 2.0 12/30/16 23:54 36.5 79 18 107/62 94 Nasal Cannula 2.0 12/30/16 21:08 34.2 12/30/16 20:04 Nasal Cannula 2.0 12/30/16 19:00 61 18 103/63 97 Nasal Cannula 2.0 12/30/16 16:00 Room Air 12/30/16 15:24 59 18 111/56 99 Nasal Cannula 2.0 12/30/16 12:50 36.4 59 16 115/52 98 Nasal Cannula 2.0 12/30/16 12:00 99 Nasal Cannula 2.0 Physical Exam: General-aaox2 with periods of delirium Eyes-no scleral icterus ENT-mmm Neck-supple Lungs-decreased at the bases Heart-rrr Abdomen-bs+ s/nt Extremities-+erythema and +2 edema with wounds on legs Neuro-periods of delirium Current Inpatient Medications Medications (Trade) Dose Ordered Sig/Cj Route Start Time Stop Time Status Last Admin Dose Admin Doxycycline Hyclate/Dextrose (Vibramycin IV/ D5 100ml) 110 ml @ 50 mls/hr BID IV 12/30/16 21:00 01/09/17 20:59 12/30/16 21:49 50 MLS/HR Piperacillin Sod/ Tazobactam Sod (Consult) 1 ea DAILY PRN N/A 12/30/16 09:00 01/29/17 08:59 Acetaminophen (Tylenol Tab) 650 mg Q4H PRN PO 12/30/16 00:30 01/29/17 00:29 Nitroglycerin (Nitrostat Tab) 0.4 mg UD PRN SL 12/30/16 00:30 01/29/17 00:29 Hydromorphone HCl (Dilaudid Inj) 0.5 mg Q6H PRN IV 12/30/16 00:30 01/13/17 00:29 Tramadol HCl (Ultram Tab) 25 mg Q6H PRN PO 12/30/16 00:30 01/29/17 00:29 Ondansetron HCl (Zofran Inj) 4 mg Q6H PRN IV 12/30/16 00:30 01/29/17 00:29 Ferrous Sulfate (Feosol Tab) 325 mg DAILY PO 12/30/16 09:00 01/29/17 08:59 12/30/16 08:20 325 MG Hydralazine HCl (Apresoline Tab) 50 mg TID PO 12/30/16 09:00 01/29/17 08:59 12/30/16 14:37 50 MG Isosorbide Mononitrate (Imdur Ext Rel Tab) 60 mg QAM PO 12/30/16 09:00 01/29/17 08:59 12/30/16 08:22 60 MG Metoprolol Tartrate (Lopressor Tab) 12.5 mg BID PO 12/30/16 09:00 01/29/17 08:59 Multivitamins/ Minerals (Multivitamin W/ Minerals Tab) 1 tab DAILY PO 12/30/16 09:00 01/29/17 08:59 12/30/16 08:22 1 TAB Albuterol/ Ipratropium (Duoneb) 3 ml Q2H PRN INH 12/30/16 00:30 01/29/17 00:29 Aspirin 81 mg 81 mg QAM PO 12/30/16 09:00 01/29/17 08:59 12/30/16 08:20 81 MG Piperacillin Sod/ Tazobactam Sod 3.375 gm/Dextrose 115 ml @ 28.75 mls/ hr Q12H IV 12/30/16 16:00 01/09/17 15:59 12/31/16 04:15 28.75 MLS/HR Furosemide/ Albumin Human (Lasix Inj/ Albumin 25%) 54 ml @ 54 mls/hr TID IV 12/30/16 09:00 01/02/17 08:59 12/30/16 21:01 54 MLS/HR Calcium Acetate (Phoslo Cap) 1,334 mg TIDM PO 12/30/16 07:30 01/29/17 07:29 12/30/16 11:46 1,334 MG Docusate Sodium (coLACE CAP) 100 mg BID PO 12/30/16 21:00 01/29/17 20:59 12/30/16 20:58 100 MG Clotrimazole (Lotrimin 1% Crm) 1 appln BID EXT 12/30/16 21:00 01/29/17 20:59 12/30/16 14:39 1 APPLN Nystatin (Mycostatin Susp) 5 ml QID PO 12/30/16 21:00 01/29/17 20:59 12/30/16 20:59 5 ML Last 24 Hours Test 12/31/16 06:50 White Blood Count 14.14 K/uL Red Blood Count 2.61 M/uL Hemoglobin 7.5 g/dL Hematocrit 21.6 % Mean Corpuscular Volume 82.8 fL Mean Corpuscular Hemoglobin 28.7 pg Mean Corpuscular Hemoglobin Concent 34.7 g/dl Platelet Count 107 K/uL Mean Platelet Volume 9.8 fL RDW Standard Deviation 50.8 fL RDW Coefficient of Variation 16.8 % Nucleated RBC Absolute Count (auto) 0.29 K/uL Nucleated Red Blood Cells % 2.1 % Sodium Level 141 mmol/L Potassium Level 5.7 mmol/L Chloride Level 112 mmol/L Carbon Dioxide Level 13 mmol/L Anion Gap 16.0 mmol/L Blood Urea Nitrogen 106 mg/dl Creatinine 5.60 mg/dl Est Creatinine Clear Calc Drug Dose 6.6 ml/min Estimated GFR () 7.5 Estimated GFR (Non- 6.5 BUN/Creatinine Ratio 18.9 Random Glucose 65 mg/dl Calcium Level 8.7 mg/dl Assessment & Plan CKD stage 5-pt with worsening hyperkalemia, periods of confusion. overall generalized weakness. cultures negative. spoke with vascular surgery, tentatively planned for tunneled line today and short dialysis treatment. pt though with overall poor prognosis with significant edema in legs and weeping wounds on appropriate antibiotics with dysphagia. once we appropriately dialyze patient, will reevaluate dysphagia. has worsening acidosis and hyperkalemia which should improve with dialysis. no fluid removal the first treatment, trying to correct the acidosis and hyperkalemia for now.
[2016-12-31 09:21] LABS: BASO % 0.1 %; BASO ABS # 0.01 K/uL (0-0.2); COMPLETE YES; ECHINOCYTES 1+; EOS % 0.3 %; IG% 0.4 %; LYMPH % 6.2 %; LYMPH ABS # 0.87 K/uL (1.2-3.4); MONO % 5.8 %; NEUT % 87.2 %
--- NOTE | 2016-12-31 09:41 | Progress Note ---
Progress Note Date of Service Dec 31, 2016. Progress Note Nephrology requesting permcath insertion today d/t pt condition deteriorating. blood cx neg. Attempted to obtain consent from pt, but unable d/t current mental status. contacted by phone, procedure, risks, benefits and alternatives discussed with , he expresses understanding and agreement. Witnessed by LAURA Rodriguez.
[2016-12-31] MEDS: DOXYCYCLINE IV 100 MG in DEXTROSE 5% 100ML 100 ML IV SCH ×2 (09:42→22:00)
--- NOTE | 2016-12-31 10:57 | Progress Note ---
Internal Med Progress Note Date of Service: Dec 31, 2016. Provider Documentation: SUBJECTIVE: Patient is more confused today, not able to have any meaningful conversation, but does follow simple commands. No odynophagia, but difficulty swallowing food. SOB +, no cough. No chest pain, fever, chills. Mental status- Worse today Tele-No more bradycardic episodes OBJECTIVE: Vital Signs-as noted below Exam: General-AAOx1, slow to respond Neck-Supple Lungs-AEBE decreased, few crackles at bases Heart-S1, S2 normal Abdomen-Soft, non tender, non distended, BS present Extremities-B.L Lower extremity edema + dressing + - cellulitis Neuro- Slow to respond, Grossly no deficits Skin- Yeast infection b/l groin/Left breast Lab data as noted below. ASSESSMENT & PLAN: LOWER EXTREMITY CELLULITIS WITH INFECTED WOUNDS: Secondary to Bilateral Lower extremity swelling from ESRD Patient has had B/L Lower ext cellulitis for more than a year, would not allow any one to look at it. Had blister which bursted with yellowish discharge -Afebrile -On IV Zosyn/Doxycycline (Day 3). Norvasc held due to LE edema. -Bl Cultures x 2 - negative, Wound culture - pseudomonas + follow up sensitivity ACUTE ON CHRONIC DIASTOLIC CHF -Fluid overloaded in setting of CKD-V, progressively worsening and refusing dialysis -IV lasix/Albumin given. -For dialysis today -Mx as below CKD-V Patient has been offered dialysis in past, but she has refused multiple times per Dr Denton and the discussions have been in front of who is aware about it. She refused to give consent for dialysis catheter but than again agreed. -Plan is to go for dialysis catheter placement/Dialysis- first rx today. -Not sure how would she do on dialysis as not taking care of her self, doubt compliance with dialysis, follow ups, not able to take care of her that well due to his age, but will respect her wishes and do it today. -Discussed with family about options of dialysis /palliative care both, opted for dialysis -Phosphate binders added SINUS BRADYCARDIA- Resolved Asymptomatic -Beta blockers re started with holding parameters -Monitor DYSPHAGIA Patient does have difficulty swallowing. No odynophagia -Speech evaluation done- recommended mechanical soft diet, but will hold off for procedure today -Aspiration precautions FUNGAL INFECTION B/L Groins, Left breast -Clotrimazole cream ordered HTN- Stable HX OF OLD CVA Per CT scan THROMBOCYTOPENIA/ANEMIA OF CHRONIC KIDNEY DISEASE -No signs of active bleeding -Nephrology on board DVT prophylaxis. SCDs RE thrombocytopenia DNR/DNI Px requesting updates from providers. Mr. Tony King at . DISPOSITION Continue with tele monitoring Vital Signs: Date Time Temp Pulse Resp B/P Pulse Ox O2 Delivery O2 Flow Rate FiO2 12/31/16 08:22 36.4 70 20 117/67 95 Nasal Cannula 2.0 12/31/16 04:06 36.2 12/31/16 04:01 Nasal Cannula 2.0 12/31/16 03:37 36.3 91 18 116/67 93 Nasal Cannula 2.0 12/31/16 00:00 Nasal Cannula 2.0 12/30/16 23:54 36.5 79 18 107/62 94 Nasal Cannula 2.0 12/30/16 21:08 34.2 12/30/16 20:04 Nasal Cannula 2.0 12/30/16 19:00 61 18 103/63 97 Nasal Cannula 2.0 12/30/16 16:00 Room Air 12/30/16 15:24 59 18 111/56 99 Nasal Cannula 2.0 12/30/16 12:50 36.4 59 16 115/52 98 Nasal Cannula 2.0 12/30/16 12:00 99 Nasal Cannula 2.0 Lab Results: Results Past 24 Hours Test 12/31/16 06:50 12/31/16 10:37 Range/Units White Blood Count 14.14 4.8-10.8 K/uL Red Blood Count 2.61 4.2-5.4 M/uL Hemoglobin 7.5 12.0-16.0 g/dL Hematocrit 21.6 37-47 % Mean Corpuscular Volume 82.8 80-100 fL Mean Corpuscular Hemoglobin 28.7 25-34 pg Mean Corpuscular Hemoglobin Concent 34.7 32-36 g/dl Platelet Count 107 130-400 K/uL Mean Platelet Volume 9.8 7.4-10.4 fL Neutrophils (%) (Auto) 87.2 % Lymphocytes (%) (Auto) 6.2 % Monocytes (%) (Auto) 5.8 % Eosinophils (%) (Auto) 0.3 % Basophils (%) (Auto) 0.1 % Neutrophils # (Auto) 12.35 1.4-6.5 K/uL Lymphocytes # (Auto) 0.87 1.2-3.4 K/uL Monocytes # (Auto) 0.82 0.11-0.59 K/uL Eosinophils # (Auto) 0.04 0-0.5 K/uL Basophils # (Auto) 0.01 0-0.2 K/uL RDW Standard Deviation 50.8 36.4-46.3 fL RDW Coefficient of Variation 16.8 11.5-14.5 % Immature Granulocyte % (Auto) 0.4 % Immature Granulocyte # (Auto) 0.05 0.00-0.02 K/uL Nucleated RBC Absolute Count (auto) 0.29 0-0 K/uL Nucleated Red Blood Cells % 2.1 % Echinocytes 1+ Sodium Level 141 136-145 mmol/L Potassium Level 5.7 3.5-5.1 mmol/L Chloride Level 112 98-107 mmol/L Carbon Dioxide Level 13 21-32 mmol/L Anion Gap 16.0 3-11 mmol/L Blood Urea Nitrogen 106 7-18 mg/dl Creatinine 5.60 0.60-1.20 mg/dl Est Creatinine Clear Calc Drug Dose 6.6 ml/min Estimated GFR () 7.5 Estimated GFR (Non- 6.5 BUN/Creatinine Ratio 18.9 10-20 Random Glucose 65 70-99 mg/dl Calcium Level 8.7 8.5-10.1 mg/dl
--- NOTE | 2016-12-31 11:01 | Clinical Documentation Query ---
CLINICAL DOCUMENTATION QUERY Dr. GUAMAN, In your clinical opinion is this patient being managed for: ( + ) Metabolic encephalopathy ( ) Other explanation of clinical findings (Please Explain) ( ) Unable to determine (Please Define) ( ) Need to Discuss ( ) Not Agree The medical record reflects the following clinical findings, treatment, and risk factors. Clinical Indicators: 81 yo female presenting with worsening cardiorenal status. Reportedly pt confused and slower to respond. CT head without acute findings. WBC 13.29, Hgb 8.9, Hct 26.2, plts 124, K 5.2, BUN 109, Cr 5.4 Treatment: IV unasyn, IV doxycycline, IV zosyn, CT head, tele, IV lasix/albumin, nephrology consult Risk Factors: CKD stage V, acute on chronic diastolic CHF, LE cellulitis Please clarify and document your clinical opinion in the progress notes and discharge summary. Terms such as "probable", "suspected", "likely", "questionable", "possible", or "still to be ruled out" are acceptable. IF IN AGREEMENT, YOU MUST DOCUMENT ABOVE DIAGNOSTIC STATEMENT IN DAILY PROGRESS NOTES AND DISCHARGE SUMMARY. This document is not part of the patient's record. Thank You, Jennifer Ku, LAURA [phone]
[2016-12-31 11:32] LABS: HEPATITIS B AB NEG
[2016-12-31] MEDS ORDERED: FENTANYL CITRATE INJ 50 MCG/1 ML 2 ML VIAL ONE (12:32)
[2016-12-31] MEDS ORDERED: MIDAZOLAM HCL 1 MG/ML 2ML VIAL ONE (12:32)
[2016-12-31] MEDS ORDERED: HEPARIN SOD (PORCINE) 5000 UNIT/ML 1 ML VIAL ONE (12:33)
--- NOTE | 2016-12-31 12:41 | Progress Note ---
Progress Note Date of Service Dec 31, 2016. Progress Note Patient for permcath placement today. Patient was seen, examined, and chart reviewed. Agree with exam and treatment plan of the Vascular PA. I have discussed the risks options and benefits of the procedure with the patient. The patient understands the risks options and benefits and agrees to the procedure. I have examined the patient, reviewed the History & Physical and in the interval since the performance of the History & Physical I have noted the following changes of clinical significance: No changes noted
--- NOTE | 2016-12-31 12:42 | Procedure Note ---
Pre-Mod Sedation Assessment General Date of Moderate Sedation: Dec 31, 2016. Vital Signs: Vital Signs Past 12 Hours Date Time Temp Pulse Resp B/P Pulse Ox O2 Delivery O2 Flow Rate FiO2 12/31/16 12:13 36.4 74 22 124/68 96 Nasal Cannula 2.0 12/31/16 12:00 97 Nasal Cannula 2.0 12/31/16 11:35 36.3 76 20 123/70 95 Nasal Cannula 3.0 12/31/16 08:22 36.4 70 20 117/67 95 Nasal Cannula 2.0 12/31/16 08:00 96 Nasal Cannula 2.0 12/31/16 04:06 36.2 12/31/16 04:01 Nasal Cannula 2.0 12/31/16 03:37 36.3 91 18 116/67 93 Nasal Cannula 2.0 Pre-Sedation Airway Assessment Oral Cavity: Dentures Short Thick Neck: No Hx of Sleep Apnea: No Smoking Status: Never Smoker Mallampati Classification: Class I ASA Classification: Class II Notes The planned sedation has been discussed with the patient and consent obtained. I have identified the patient, determined the appropriateness of sedation and have assessed the patient immediately prior to the procedure. All medicine(s) and interventions are by my order.
[2016-12-31] MEDS ORDERED: LIDOCAINE HCL 1% 20 ML VIAL SQ ONE (13:32)
[2016-12-31] MEDS ORDERED: HEPARIN SOD (PORCINE) 5000 UNIT/ML 1 ML VIAL IV ONE (13:32)
--- NOTE | 2016-12-31 14:04 | DIAGNOSTIC IMAGING REPORT ---
DATE OF PROCEDURE: 12/31/2016 PREOPERATIVE DIAGNOSIS: End-stage renal disease with need for long-term dialysis access. POSTOPERATIVE DIAGNOSIS: Same. PROCEDURE: Insertion of a right internal jugular tunneled dialysis catheter. SURGEON: Dr. Ivan Acosta. SOFTWARE INTEGRATION DEVELOPER: Dr. Mukesh Nichols. ANESTHESIA: Local anesthesia only. ESTIMATED BLOOD LOSS: 5 mL. COMPLICATIONS: None. INDICATIONS: This is an 81-year-old female admitted to hospital with multiple medical problems. She has progressed to end-stage renal disease with need for dialysis. 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 Risks, benefits, and alternatives were explained to the patient and her family members and they agreed to proceed. OPERATION: The patient was brought to the endovascular suite and placed in supine position. The right neck and chest were prepped and draped in normal sterile fashion. A timeout was performed and all parties agreed to correct patient and procedure to be performed. Appropriate surgical prophylactic antibiotics were administered within one hour of the incision. Under ultrasound guidance, the right internal jugular vein was accessed on the first attempt. A wire was passed to the level of the superior vena cava. Next, the entire tract and right chest wall were numbed with local anesthetic. A small transverse incision was made in the superior aspect of the right chest. The catheter was tunneled from the chest up through the neck incision. Next, over the wire the dilator was passed followed by the insertion sheath. The end of the catheter was advanced through the sheath under fluoroscopic guidance. After completion of this, there was a small kink in the catheter. For this reason, a Glidewire was brought into the field and advanced through the catheter. This, along with gentle retraction of the catheter, straightened it completely. The catheter ports withdrew and flushed easily. The catheter was sutured in place. Heparinized saline was instilled into the end of the ports. At completion fluoroscopic image showed the catheter to be in good position with no residual kink. The patient was taken to recovery room in satisfactory condition with no apparent complications. IDr. Acosta was present and scrubed for the entire procedure. [facility]
--- NOTE | 2016-12-31 19:46 | DIAGNOSTIC IMAGING REPORT ---
CHEST ONE VIEW PORTABLE CLINICAL HISTORY: Shortness of breath COMPARISON STUDY: 12/29/2016 FINDINGS: The heart is mildly enlarged. There is radiographic evidence of congestive failure/fluid overload with mild interstitial edema. There are small bilateral pleural effusions. Left basal airspace opacities likely representing compressive atelectasis. There is been interval placement of a double-lumen right internal jugular central venous catheter. No pneumothorax is visualized.[ IMPRESSION: Worsening congestive failure/fluid overload. Left basal airspace opacity, likely representing compressive atelectasis. Electronically signed by: Enrique Devine M.D. 12/31/2016 7:45 PM Dictated Date/Time: 12/31/2016 7:44 PM
[2016-12-31] MEDS ORDERED: OXYMETAZOLINE HCL 0.05% NA SPR 15 ML BTL ONE (19:50)
[2016-12-31] MEDS ORDERED: OXYMETAZOLINE HCL 0.05% NA SPR 15 ML BTL PRN (20:00)
[2017-01-01] VITALS (32 sets, daily range): BP systolic 89–137; BP diastolic 49–68; PULSE 77–130; TEMP 36.3–36.7; O2SAT 90–100
[2017-01-01] MEDS: PIPERACILL/TAZOBAC IV 3.375 GM in DEXTROSE 5% 100ML IV SCH ×2 (04:33→15:30)
[2017-01-01 06:37] LABS: HEMATOCRIT 20.1 % (37-47); MEAN CELL VOLUME 85.5 fL (80-100); MEAN CORPUSCULAR HEMOGLOBIN 29.8 pg (25-34); MEAN CORPUSCULAR HGB CONC 34.8 g/dl (32-36); MEAN PLATELET VOLUME 10.2 fL (7.4-10.4); PLATELET COUNT 103 K/uL (130-400); RED BLOOD COUNT 2.35 M/uL (4.2-5.4); WHITE BLOOD COUNT 15.24 K/uL (4.8-10.8)
[2017-01-01 06:49] LABS: BUN/CREATININE RATIO 18.5 (10-20); CALCIUM 8.1 mg/dl (8.5-10.1); CREATININE 4.4 mg/dl (0.60-1.20); POTASSIUM 4.8 mmol/L (3.5-5.1)
[2017-01-01] MEDS: CALCIUM ACETATE 667MG GELCAP PO SCH ×3 (07:30→15:52)
[2017-01-01] MEDS: CLOTRIMAZOLE 1% CR 15 GM TUBE EXT SCH ×2 (07:48→21:08)
[2017-01-01] MEDS: ASPIRIN 81 MG ECTAB PO SCH (07:49)
[2017-01-01] MEDS: FERROUS SULFATE 325 MG TAB PO SCH (07:49)
[2017-01-01] MEDS: ISOSORBIDE MONONITRATE 60 MG TABCR PO SCH (07:49)
[2017-01-01] MEDS: METOPROLOL TARTRATE 50 MG TAB PO SCH ×2 (07:49→21:09)
[2017-01-01] MEDS: DOCUSATE SODIUM 100 MG CAP PO SCH ×2 (07:49→21:09)
[2017-01-01] MEDS: CEROVITE ADV FORMULA TAB PO SCH (07:50)
[2017-01-01] MEDS: NYSTATIN SUSP 500,000 U/5 ML UDC PO SCH ×4 (07:50→21:08)
[2017-01-01] MEDS: DOXYCYCLINE IV 100 MG in DEXTROSE 5% 100ML 100 ML IV SCH ×2 (09:18→21:09)
[2017-01-01] MEDS: ALBUMIN 25% 50 ML with FUROSEMIDE INJ 40 MG IV SCH ×6 (09:19→21:02)
--- NOTE | 2017-01-01 09:37 | Nephrology Progress Note ---
Nephrology Progress Note Date of Service: Jan 01, 2017. Subjective got 2.3L off on HD yesterday; on VM this am; denies pain, endorses dyspnea; had significant bleeding around TDC but stabilized / tolerated treatment Objective Date Time Temp Pulse Resp B/P Pulse Ox O2 Delivery O2 Flow Rate FiO2 01/01/17 07:54 36.4 86 15 128/61 98 Non-Rebreather 15.0 50 01/01/17 04:00 Venturi Mask 50 01/01/17 03:42 36.4 84 32 116/58 96 Mask 15.0 01/01/17 02:00 86 128/55 97 01/01/17 00:09 36.3 82 16 118/49 98 Venturi Mask 50 12/31/16 23:59 Venturi Mask 50 12/31/16 23:44 36.3 88 109/44 12/31/16 22:52 84 116/44 12/31/16 22:30 83 101/50 12/31/16 22:15 81 117/56 12/31/16 22:00 80 112/56 12/31/16 21:45 80 101/52 12/31/16 21:30 82 112/52 12/31/16 21:15 77 116/46 12/31/16 21:14 73 122/49 12/31/16 21:00 77 119/50 12/31/16 20:55 73 12/31/16 20:00 Venturi Mask 50 12/31/16 19:45 97 Venturi Mask 50 12/31/16 19:36 35.5 75 16 110/57 83 Nasal Cannula 2.0 12/31/16 17:15 78 22 117/54 95 Nasal Cannula 2.0 12/31/16 16:45 35.6 74 22 121/65 95 Nasal Cannula 2.0 12/31/16 16:15 73 22 127/52 93 Nasal Cannula 2.0 12/31/16 16:14 73 18 91 Nasal Cannula 2.0 12/31/16 16:00 36.2 74 20 120/58 98 Nasal Cannula 2.0 12/31/16 16:00 98 Nasal Cannula 2.0 12/31/16 15:45 36.2 74 22 122/53 92 Nasal Cannula 2.0 12/31/16 15:30 35.5 20 129/53 98 Nasal Cannula 2.0 12/31/16 15:15 20 121/60 98 Nasal Cannula 2.0 12/31/16 15:00 74 20 131/55 98 Nasal Cannula 2.0 12/31/16 14:45 36.0 74 20 144/76 98 Nasal Cannula 2.0 12/31/16 14:30 35.6 74 20 134/81 98 Nasal Cannula 2.0 12/31/16 14:15 35.6 73 20 134/75 98 Nasal Cannula 2.0 12/31/16 14:10 35.6 73 22 150/52 98 Nasal Cannula 2.0 12/31/16 13:45 80 18 154/60 99 Mask 10.0 12/31/16 13:40 79 18 146/63 99 Mask 10.0 12/31/16 13:35 80 16 148/66 99 Mask 10.0 12/31/16 13:30 80 16 122/56 99 Mask 10.0 12/31/16 13:25 81 22 138/54 99 Mask 10.0 12/31/16 13:20 81 22 133/76 99 Mask 10.0 12/31/16 13:15 83 20 145/53 98 Mask 10.0 12/31/16 12:13 36.4 74 22 124/68 96 Nasal Cannula 2.0 12/31/16 12:00 97 Nasal Cannula 2.0 12/31/16 11:35 36.3 76 20 123/70 95 Nasal Cannula 3.0 Physical Exam: General-resting quietly, wakens/tracks, answers simple y/n, bear hugger Eyes-no scleral icterus ENT- dry mm Neck-supple Lungs-diminshed ant exam Heart-rrr Abdomen-bs+ s/nt Extremities-+erythema and +2 edema , BL legs wrapped Neuro-generalized weakness, as above Current Inpatient Medications Medications (Trade) Dose Ordered Sig/Cj Route Start Time Stop Time Status Last Admin Dose Admin Doxycycline Hyclate/Dextrose (Vibramycin IV/ D5 100ml) 110 ml @ 50 mls/hr BID IV 12/30/16 21:00 01/09/17 20:59 01/01/17 09:18 50 MLS/HR Piperacillin Sod/ Tazobactam Sod (Consult) 1 ea DAILY PRN N/A 12/30/16 09:00 01/29/17 08:59 Acetaminophen (Tylenol Tab) 650 mg Q4H PRN PO 12/30/16 00:30 01/29/17 00:29 Nitroglycerin (Nitrostat Tab) 0.4 mg UD PRN SL 12/30/16 00:30 01/29/17 00:29 Hydromorphone HCl (Dilaudid Inj) 0.5 mg Q6H PRN IV 12/30/16 00:30 01/13/17 00:29 Tramadol HCl (Ultram Tab) 25 mg Q6H PRN PO 12/30/16 00:30 01/29/17 00:29 Ondansetron HCl (Zofran Inj) 4 mg Q6H PRN IV 12/30/16 00:30 01/29/17 00:29 Ferrous Sulfate (Feosol Tab) 325 mg DAILY PO 12/30/16 09:00 01/29/17 08:59 12/30/16 08:20 325 MG Hydralazine HCl (Apresoline Tab) 50 mg TID PO 12/30/16 09:00 01/29/17 08:59 12/30/16 14:37 50 MG Isosorbide Mononitrate (Imdur Ext Rel Tab) 60 mg QAM PO 12/30/16 09:00 01/29/17 08:59 12/30/16 08:22 60 MG Metoprolol Tartrate (Lopressor Tab) 12.5 mg BID PO 12/30/16 09:00 01/29/17 08:59 Multivitamins/ Minerals (Multivitamin W/ Minerals Tab) 1 tab DAILY PO 12/30/16 09:00 01/29/17 08:59 12/30/16 08:22 1 TAB Albuterol/ Ipratropium (Duoneb) 3 ml Q2H PRN INH 12/30/16 00:30 01/29/17 00:29 12/31/16 16:13 3 ML Aspirin 81 mg 81 mg QAM PO 12/30/16 09:00 01/29/17 08:59 12/30/16 08:20 81 MG Piperacillin Sod/ Tazobactam Sod 3.375 gm/Dextrose 115 ml @ 28.75 mls/ hr Q12H IV 12/30/16 16:00 01/09/17 15:59 01/01/17 04:33 28.75 MLS/HR Furosemide/ Albumin Human (Lasix Inj/ Albumin 25%) 54 ml @ 54 mls/hr TID IV 12/30/16 09:00 01/02/17 08:59 01/01/17 09:19 54 MLS/HR Calcium Acetate (Phoslo Cap) 1,334 mg TIDM PO 12/30/16 07:30 01/29/17 07:29 12/30/16 11:46 1,334 MG Docusate Sodium (coLACE CAP) 100 mg BID PO 12/30/16 21:00 01/29/17 20:59 12/30/16 20:58 100 MG Clotrimazole (Lotrimin 1% Crm) 1 appln BID EXT 12/30/16 21:00 01/29/17 20:59 01/01/17 07:48 1 APPLN Nystatin (Mycostatin Susp) 5 ml QID PO 12/30/16 21:00 01/29/17 20:59 12/31/16 23:19 5 ML Oxymetazoline HCl (Afrin 0.05% Nasal [place]) 4 sprays Q12H PRN NA 12/31/16 20:00 01/30/17 19:59 Last 24 Hours Test 12/31/16 10:37 01/01/17 05:59 Hepatitis B Surface Antigen NEG Hepatitis B Surface Antibody NEG White Blood Count 15.24 K/uL Red Blood Count 2.35 M/uL Hemoglobin 7.0 g/dL Hematocrit 20.1 % Mean Corpuscular Volume 85.5 fL Mean Corpuscular Hemoglobin 29.8 pg Mean Corpuscular Hemoglobin Concent 34.8 g/dl RDW Standard Deviation 53.3 fL RDW Coefficient of Variation 17.4 % Platelet Count 103 K/uL Mean Platelet Volume 10.2 fL Nucleated RBC Absolute Count (auto) 0.31 K/uL Nucleated Red Blood Cells % 2.0 % Sodium Level 141 mmol/L Potassium Level 4.8 mmol/L Chloride Level 110 mmol/L Carbon Dioxide Level 17 mmol/L Anion Gap 14.0 mmol/L Blood Urea Nitrogen 81 mg/dl Creatinine 4.40 mg/dl Est Creatinine Clear Calc Drug Dose 8.5 ml/min Estimated GFR () 10.1 Estimated GFR (Non- 8.7 BUN/Creatinine Ratio 18.5 Random Glucose 75 mg/dl Calcium Level 8.1 mg/dl Assessment & Plan 81 y/o F w/ severe MR and valvular HF, severe cellulitis, CKD stage 5 started on trial of HD 12/31. ESRD -repeat HD today; likely also for tx tomorrow and possibly 01/03 depending on clinical course and goals of care. pt with overall poor prognosis d/t comorbiditites and significant edema/cellulitis in legs on appropriate antibiotics; also currently NPO d/t dysphagia. hyperkalemia> improved w/ HD Anemia > some related to blood loss >> for pRBC w/ tx today appreciate consult; will follow with you. care coordinated w/ Dr. Ferguson
--- NOTE | 2017-01-01 11:03 | Progress Note ---
Internal Med Progress Note Date of Service: Jan 01, 2017. Provider Documentation: SUBJECTIVE: Patient's mental status is marginally better- awake, oriented x 2, follows simple commands. SOB +, Unable to bring up anything. No chest pain, fever, chills. Has some bleeding at site of Dialysis catheter insertion. Blood with suctioning + Received Dialysis rx yesterday. OBJECTIVE: Vital Signs-as noted below Exam: General-Awake, oriented x 2, Lethargic, slow to respond, follows simple commands Neck-Supple Lungs-AEBE decreased, Crackles all over; Right chest- Dialysis catheter- bleeding at site. Heart-S1, S2 normal Abdomen-Soft, non tender, non distended, BS present Extremities-B.L Lower extremity edema + dressing + - cellulitis Neuro- Slow to respond, Grossly no deficits, able to move all extremities Skin- Yeast infection b/l groin/Left breast Lab data as noted below. ASSESSMENT & PLAN: ACUTE ON CHRONIC DIASTOLIC CHF : -Fluid overloaded in setting of CKD-V, progressively worsening and refusing dialysis -S/P IV lasix/Albumin given. -Started on dialysis with fluid removal on 12/31/16 after placement of Right dialysis catheter -Nephrology on board. Appreciate inputs ESRD ON HD: Patient had been offered dialysis in past, but she refused multiple times per Dr Denton and the discussions have been in front of who is aware about it. She refused to give consent for dialysis catheter initially but than later agreed. -S/P Dialysis catheter placement on 12/31/16- some bleeding from site noted. Vascular sx aware- recommending pressure dressings and close monitoring. -Dialysis newly started on 12/31/16 and to be done today as well -Will give 1 unit PRBC with dialysis today -Nephrology on board. Appreciate inputs. Discussed with nephrology LOWER EXTREMITY CELLULITIS WITH INFECTED WOUNDS: Secondary to Bilateral Lower extremity swelling from ESRD Patient has had B/L Lower ext cellulitis for more than a year, would not allow any one to look at it. Had blister which bursted with yellowish discharge -Afebrile -On IV Zosyn/Doxycycline (Day 4). Norvasc held due to LE edema. -Bl Cultures x 2 - negative, Wound culture - pseudomonas + pansensitive METABOLIC ENCEPHALOPATHY Secondary to ESRD/Cellulitis -Mental status- marginal improvement today -Monitor with rx ACUTE BLOOD LOSS ANEMIA -Hb down to 7 with bleeding from dialysis catheter site/with suctioning in setting of Chronic anemia with CKD -Will transfuse 1 unit PRBC with dialysis today -Monitor H & h DYSPHAGIA Patient does have difficulty swallowing, which is a chronic issue per family. No odynophagia -Speech evaluation done- recommended mechanical soft diet, but will hold off given high risk of aspiration, altered mental status -Will continue with IV antibiotics as above which would also cover for possible aspiration pneumonia -Aspiration precautions + FUNGAL INFECTION B/L Groins, Left breast -Clotrimazole cream ordered HTN- Stable HX OF OLD CVA Per CT scan THROMBOCYTOPENIA/ANEMIA OF CHRONIC KIDNEY DISEASE -No signs of active bleeding -Nephrology on board NUTRITION NPO due to AMS/Aspiration risk. DVT prophylaxis. SCDs RE thrombocytopenia DNR/DNI Px requesting updates from providers. Mr. Tony King at . DISPOSITION Continue with tele monitoring Prognosis guarded Updated by bedside. Vital Signs: Date Time Temp Pulse Resp B/P Pulse Ox O2 Delivery O2 Flow Rate FiO2 01/01/17 08:00 98 Venturi Mask 15.0 50 01/01/17 07:54 36.4 86 15 128/61 98 Non-Rebreather 15.0 50 01/01/17 04:00 Venturi Mask 50 01/01/17 03:42 36.4 84 32 116/58 96 Mask 15.0 01/01/17 02:00 86 128/55 97 01/01/17 00:09 36.3 82 16 118/49 98 Venturi Mask 50 12/31/16 23:59 Venturi Mask 50 12/31/16 23:44 36.3 88 109/44 12/31/16 22:52 84 116/44 12/31/16 22:30 83 101/50 12/31/16 22:15 81 117/56 12/31/16 22:00 80 112/56 12/31/16 21:45 80 101/52 12/31/16 21:30 82 112/52 12/31/16 21:15 77 116/46 12/31/16 21:14 73 122/49 12/31/16 21:00 77 119/50 12/31/16 20:55 73 12/31/16 20:00 Venturi Mask 50 12/31/16 19:45 97 Venturi Mask 50 12/31/16 19:36 35.5 75 16 110/57 83 Nasal Cannula 2.0 12/31/16 17:15 78 22 117/54 95 Nasal Cannula 2.0 12/31/16 16:45 35.6 74 22 121/65 95 Nasal Cannula 2.0 12/31/16 16:15 73 22 127/52 93 Nasal Cannula 2.0 12/31/16 16:14 73 18 91 Nasal Cannula 2.0 12/31/16 16:00 36.2 74 20 120/58 98 Nasal Cannula 2.0 12/31/16 16:00 98 Nasal Cannula 2.0 12/31/16 15:45 36.2 74 22 122/53 92 Nasal Cannula 2.0 12/31/16 15:30 35.5 20 129/53 98 Nasal Cannula 2.0 12/31/16 15:15 20 121/60 98 Nasal Cannula 2.0 12/31/16 15:00 74 20 131/55 98 Nasal Cannula 2.0 12/31/16 14:45 36.0 74 20 144/76 98 Nasal Cannula 2.0 12/31/16 14:30 35.6 74 20 134/81 98 Nasal Cannula 2.0 12/31/16 14:15 35.6 73 20 134/75 98 Nasal Cannula 2.0 12/31/16 14:10 35.6 73 22 150/52 98 Nasal Cannula 2.0 12/31/16 13:45 80 18 154/60 99 Mask 10.0 12/31/16 13:40 79 18 146/63 99 Mask 10.0 12/31/16 13:35 80 16 148/66 99 Mask 10.0 12/31/16 13:30 80 16 122/56 99 Mask 10.0 12/31/16 13:25 81 22 138/54 99 Mask 10.0 12/31/16 13:20 81 22 133/76 99 Mask 10.0 12/31/16 13:15 83 20 145/53 98 Mask 10.0 12/31/16 12:13 36.4 74 22 124/68 96 Nasal Cannula 2.0 12/31/16 12:00 97 Nasal Cannula 2.0 12/31/16 11:35 36.3 76 20 123/70 95 Nasal Cannula 3.0 Lab Results: Results Past 24 Hours Test 01/01/17 05:59 Range/Units White Blood Count 15.24 4.8-10.8 K/uL Red Blood Count 2.35 4.2-5.4 M/uL Hemoglobin 7.0 12.0-16.0 g/dL Hematocrit 20.1 37-47 % Mean Corpuscular Volume 85.5 80-100 fL Mean Corpuscular Hemoglobin 29.8 25-34 pg Mean Corpuscular Hemoglobin Concent 34.8 32-36 g/dl RDW Standard Deviation 53.3 36.4-46.3 fL RDW Coefficient of Variation 17.4 11.5-14.5 % Platelet Count 103 130-400 K/uL Mean Platelet Volume 10.2 7.4-10.4 fL Nucleated RBC Absolute Count (auto) 0.31 0-0 K/uL Nucleated Red Blood Cells % 2.0 % Sodium Level 141 136-145 mmol/L Potassium Level 4.8 3.5-5.1 mmol/L Chloride Level 110 98-107 mmol/L Carbon Dioxide Level 17 21-32 mmol/L Anion Gap 14.0 3-11 mmol/L Blood Urea Nitrogen 81 7-18 mg/dl Creatinine 4.40 0.60-1.20 mg/dl Est Creatinine Clear Calc Drug Dose 8.5 ml/min Estimated GFR () 10.1 Estimated GFR (Non- 8.7 BUN/Creatinine Ratio 18.5 10-20 Random Glucose 75 70-99 mg/dl Calcium Level 8.1 8.5-10.1 mg/dl
--- NOTE | 2017-01-01 15:17 | Progress Note ---
Progress Note Date of Service Jan 01, 2017. Progress Note Checked on pt d/t bleeding from permcath site earlier. Small amt red blood on new dressing from a few hrs ago. Did not change/disrupt dressing. Use for HD as needed. Call if needed.
[2017-01-02] VITALS (25 sets, daily range): BP systolic 101–141; BP diastolic 49–75; PULSE 70–87; TEMP 36.3–36.7; O2SAT 90–99
[2017-01-02] MEDS: PIPERACILL/TAZOBAC IV 3.375 GM in DEXTROSE 5% 100ML IV SCH ×2 (03:46→16:35)
[2017-01-02 06:55] LABS: HEMATOCRIT 23.5 % (37-47); MEAN CELL VOLUME 82.7 fL (80-100); MEAN CORPUSCULAR HEMOGLOBIN 28.2 pg (25-34); RED BLOOD COUNT 2.84 M/uL (4.2-5.4); WHITE BLOOD COUNT 12.82 K/uL (4.8-10.8)
[2017-01-02 07:27] LABS: CALCIUM 7.7 mg/dl (8.5-10.1); CREATININE 3.1 mg/dl (0.60-1.20); POTASSIUM 3.9 mmol/L (3.5-5.1)
[2017-01-02] MEDS: CALCIUM ACETATE 667MG GELCAP PO SCH ×3 (07:30→15:26)
--- NOTE | 2017-01-02 07:53 | Nephrology Progress Note ---
Nephrology Progress Note Date of Service: Jan 02, 2017. Subjective 81 yo female with ckd stage 5, bilateral cellulitis, altered mental status, dysphagia, sob, severe MR, with dialysis catheter placement and two dialysis treatments with unit of blood yesterday on dialysis. pt still confused but knows my name and that she is in the hospital. requiring estelle floyd. Objective Date Time Temp Pulse Resp B/P Pulse Ox O2 Delivery O2 Flow Rate FiO2 01/02/17 07:29 36.7 87 24 110/62 90 Venturi Mask 01/02/17 04:32 36.7 84 27 139/61 99 Non-Rebreather 15.0 01/02/17 04:00 99 Venturi Mask 50 01/01/17 23:59 99 Venturi Mask 50 01/01/17 23:34 36.4 78 26 89/50 90 Mask 15.0 01/01/17 20:00 99 Venturi Mask 50 01/01/17 19:59 36.5 90 119/60 01/01/17 19:23 36.5 92 28 133/60 99 Venturi Mask 50 01/01/17 19:00 90 123/60 01/01/17 18:45 90 133/59 01/01/17 18:42 92 28 131/59 100 8.0 01/01/17 18:30 95 130/58 01/01/17 18:26 36.3 92 24 131/59 99 8.0 01/01/17 18:22 36.3 96 24 130/65 99 8.0 01/01/17 18:15 95 119/62 01/01/17 18:11 36.3 92 22 112/68 100 15.0 01/01/17 18:00 95 112/68 01/01/17 17:48 130 01/01/17 17:45 96 119/51 01/01/17 17:30 81 123/51 01/01/17 17:15 81 134/51 01/01/17 17:00 90 128/57 01/01/17 16:45 88 132/58 01/01/17 16:38 36.7 93 137/61 01/01/17 16:30 91 128/55 01/01/17 16:25 93 137/61 01/01/17 16:09 36.5 91 20 137/61 98 Venturi Mask 50 01/01/17 16:00 98 Venturi Mask 15.0 50 01/01/17 12:02 36.4 77 25 128/66 100 Non-Rebreather 15.0 50 01/01/17 12:00 98 Venturi Mask 15.0 50 01/01/17 08:00 98 Venturi Mask 15.0 50 01/01/17 07:54 36.4 86 15 128/61 98 Non-Rebreather 15.0 50 Physical Exam: General-aaox2, weak Eyes-no scleral icterus ENT-mmm Neck-supple Lungs-decreased at the bases Heart-2/6 systolic murmur Abdomen-bs+ s/nt Extremities-+1 to 2 edema, legs wrapped Neuro-mild confusion, follows commands, weak Current Inpatient Medications Medications (Trade) Dose Ordered Sig/Cj Route Start Time Stop Time Status Last Admin Dose Admin Doxycycline Hyclate/Dextrose (Vibramycin IV/ D5 100ml) 110 ml @ 50 mls/hr BID IV 12/30/16 21:00 01/09/17 20:59 01/01/17 21:09 50 MLS/HR Piperacillin Sod/ Tazobactam Sod (Consult) 1 ea DAILY PRN N/A 12/30/16 09:00 01/29/17 08:59 Acetaminophen (Tylenol Tab) 650 mg Q4H PRN PO 12/30/16 00:30 01/29/17 00:29 Nitroglycerin (Nitrostat Tab) 0.4 mg UD PRN SL 12/30/16 00:30 01/29/17 00:29 Hydromorphone HCl (Dilaudid Inj) 0.5 mg Q6H PRN IV 12/30/16 00:30 01/13/17 00:29 Tramadol HCl (Ultram Tab) 25 mg Q6H PRN PO 12/30/16 00:30 01/29/17 00:29 Ondansetron HCl (Zofran Inj) 4 mg Q6H PRN IV 12/30/16 00:30 01/29/17 00:29 Ferrous Sulfate (Feosol Tab) 325 mg DAILY PO 12/30/16 09:00 01/29/17 08:59 12/30/16 08:20 325 MG Hydralazine HCl (Apresoline Tab) 50 mg TID PO 12/30/16 09:00 01/29/17 08:59 01/01/17 21:09 50 MG Isosorbide Mononitrate (Imdur Ext Rel Tab) 60 mg QAM PO 12/30/16 09:00 01/29/17 08:59 12/30/16 08:22 60 MG Metoprolol Tartrate (Lopressor Tab) 12.5 mg BID PO 12/30/16 09:00 01/29/17 08:59 01/01/17 21:09 12.5 MG Multivitamins/ Minerals (Multivitamin W/ Minerals Tab) 1 tab DAILY PO 12/30/16 09:00 01/29/17 08:59 12/30/16 08:22 1 TAB Albuterol/ Ipratropium (Duoneb) 3 ml Q2H PRN INH 12/30/16 00:30 01/29/17 00:29 12/31/16 16:13 3 ML Aspirin 81 mg 81 mg QAM PO 12/30/16 09:00 01/29/17 08:59 12/30/16 08:20 81 MG Piperacillin Sod/ Tazobactam Sod 3.375 gm/Dextrose 115 ml @ 28.75 mls/ hr Q12H IV 12/30/16 16:00 01/09/17 15:59 01/02/17 03:46 28.75 MLS/HR Furosemide/ Albumin Human (Lasix Inj/ Albumin 25%) 54 ml @ 54 mls/hr TID IV 12/30/16 09:00 01/02/17 08:59 01/01/17 21:02 54 MLS/HR Calcium Acetate (Phoslo Cap) 1,334 mg TIDM PO 12/30/16 07:30 01/29/17 07:29 12/30/16 11:46 1,334 MG Docusate Sodium (coLACE CAP) 100 mg BID PO 12/30/16 21:00 01/29/17 20:59 01/01/17 21:09 100 MG Clotrimazole (Lotrimin 1% Crm) 1 appln BID EXT 12/30/16 21:00 01/29/17 20:59 01/01/17 21:08 1 APPLN Nystatin (Mycostatin Susp) 5 ml QID PO 12/30/16 21:00 01/29/17 20:59 01/01/17 21:08 5 ML Oxymetazoline HCl (Afrin 0.05% Nasal [place]) 4 sprays Q12H PRN NA 12/31/16 20:00 01/30/17 19:59 Heparin Sodium (Porcine) 1 ea 1 ea ONE ONCE N/A 01/02/17 08:00 01/02/17 08:01 Epoetin Vamshi/ Syringe (Procrit Inj/ Syringe) 0.8 ml @ 1 mls/min TODAY@0800 ONCE IV. 01/02/17 08:00 01/02/17 08:01 Last 24 Hours Test 01/02/17 06:23 White Blood Count 12.82 K/uL Red Blood Count 2.84 M/uL Hemoglobin 8.0 g/dL Hematocrit 23.5 % Mean Corpuscular Volume 82.7 fL Mean Corpuscular Hemoglobin 28.2 pg Mean Corpuscular Hemoglobin Concent 34.0 g/dl RDW Standard Deviation 52.3 fL RDW Coefficient of Variation 17.3 % Nucleated RBC Absolute Count (auto) 0.40 K/uL Nucleated Red Blood Cells % 3.1 % Sodium Level 139 mmol/L Potassium Level 3.9 mmol/L Chloride Level 106 mmol/L Carbon Dioxide Level 20 mmol/L Anion Gap 13.0 mmol/L Blood Urea Nitrogen 53 mg/dl Creatinine 3.10 mg/dl Est Creatinine Clear Calc Drug Dose 12.0 ml/min Estimated GFR () 15.4 Estimated GFR (Non- 13.3 BUN/Creatinine Ratio 17.0 Random Glucose 86 mg/dl Calcium Level 7.7 mg/dl Assessment & Plan CKD stage 5-k is much improved. bun is trending down nicely. to do dialysis again today and again tomorrow. hopefully, mental status starts to improve and dysphagia also improves. urinating about 300cc a day. since starting on dialysis , will stop the lasix and albumin. metabolic acidosis-bicarb levels were low from renal failure but overall much improved. cellulitis-blood cultures are negative. on appropriate antibiotics. Anemia of renal failure-transfused on dialysis. holding on procrit till I can discuss the risks and benefits of procrit. pt overall very weak with a poor prognosis but so far has tolerated two treatments. will continue to dialyze and see if she starts to slowly improve.
[2017-01-02] MEDS ORDERED: EPOETIN ALFA 10,000 UNITS/ML VIAL IV. ONE (08:00)
[2017-01-02] MEDS ORDERED: EPOETIN ALFA IV. ONE (08:00)
[2017-01-02 08:11] LABS: MEAN PLATELET VOLUME 9.5 fL (7.4-10.4); PLATELET COUNT 95 K/uL (130-400)
[2017-01-02] MEDS: ISOSORBIDE MONONITRATE 60 MG TABCR PO SCH (09:00)
[2017-01-02] MEDS: DOCUSATE SODIUM 100 MG CAP PO SCH ×2 (09:00→21:00)
[2017-01-02] MEDS: ASPIRIN 81 MG ECTAB PO SCH (09:00)
[2017-01-02] MEDS: METOPROLOL TARTRATE 50 MG TAB PO SCH (09:00)
[2017-01-02] MEDS ORDERED: EPOETIN ALFA INJ 12,000 UNITS in SYRINGE 0 ML IV. SCH (09:00)
[2017-01-02] MEDS: CLOTRIMAZOLE 1% CR 15 GM TUBE EXT SCH ×2 (09:50→21:12)
[2017-01-02] MEDS: NYSTATIN SUSP 500,000 U/5 ML UDC PO SCH ×4 (09:51→21:12)
[2017-01-02] MEDS: NEPHROCAPS PO SCH (09:51)
[2017-01-02] MEDS: DOXYCYCLINE IV 100 MG in DEXTROSE 5% 100ML 100 ML IV SCH (10:02)
--- NOTE | 2017-01-02 12:27 | Progress Note ---
Internal Med Progress Note Date of Service: Jan 02, 2017. Provider Documentation: SUBJECTIVE: Patient's mental status is marginally better- awake, oriented x 2, follows simple commands. Asking for food. No chest pain, fever, chills. Has some bleeding at site of Dialysis catheter insertion. Receiving dialysis today OBJECTIVE: Vital Signs-as noted below Exam: General-Awake, oriented x 2, Lethargic, slow to respond, follows simple commands Neck-Supple Lungs-AEBE decreased, Crackles all over; Right chest- Dialysis catheter- bleeding at site. Heart-S1, S2 normal Abdomen-Soft, non tender, non distended, BS present Extremities-B.L Lower extremity edema + dressing + - cellulitis Neuro- Slow to respond, Grossly no deficits, able to move all extremities Skin- Yeast infection b/l groin/Left breast Lab data as noted below. ASSESSMENT & PLAN: ACUTE ON CHRONIC DIASTOLIC CHF : Improving -Fluid overloaded in setting of CKD-V, progressively worsening and refusing dialysis -S/P IV lasix/Albumin . -Started on dialysis with fluid removal on 12/31/16 after placement of Right dialysis catheter -Nephrology on board. Appreciate inputs ESRD ON HD: Patient had been offered dialysis in past, but she refused multiple times per Dr Denton and the discussions have been in front of who is aware about it. She refused to give consent for dialysis catheter initially but than later agreed. -S/P Dialysis catheter placement on 12/31/16- some bleeding from site noted. Vascular sx aware- recommending pressure dressings and close monitoring. -Dialysis newly started on 12/31/16. -Nephrology on board. Appreciate inputs. Discussed with nephrology LOWER EXTREMITY CELLULITIS WITH INFECTED WOUNDS: Secondary to Bilateral Lower extremity swelling from ESRD Patient has had B/L Lower ext cellulitis for more than a year, would not allow any one to look at it. Had blister which bursted with yellowish discharge -Afebrile -On IV Zosyn/Doxycycline (Day 5)--> Will discontinue Doxy as Zosyn should cover strep/pseudomonas per cx results. Norvasc held due to LE edema. -Bl Cultures x 2 - negative, Wound culture - pseudomonas + strep + pansensitive METABOLIC ENCEPHALOPATHY -Improving Secondary to ESRD/Cellulitis -Mental status- marginal improvement today -Monitor with rx ACUTE BLOOD LOSS ANEMIA -Hb down to 7 with bleeding from dialysis catheter site/with suctioning in setting of Chronic anemia with CKD -S/P 1 unit of PRBC today -Monitor H & h DYSPHAGIA Patient does have difficulty swallowing, which is a chronic issue per family. No odynophagia -Speech re evaluation requested -Will continue with IV antibiotics as above which would also cover for possible aspiration pneumonia -Aspiration precautions + FUNGAL INFECTION B/L Groins, Left breast -Clotrimazole cream ordered HTN- Stable HX OF OLD CVA Per CT scan THROMBOCYTOPENIA/ANEMIA OF CHRONIC KIDNEY DISEASE -No signs of active bleeding -Nephrology on board NUTRITION NPO due to AMS/Aspiration risk. DVT prophylaxis. SCDs . RE: thrombocytopenia DNR/DNI Px requesting updates from providers. Mr. Tony King at . DISPOSITION Continue with tele monitoring Prognosis guarded Updated son/daughter in law by bedside. Vital Signs: Date Time Temp Pulse Resp B/P Pulse Ox O2 Delivery O2 Flow Rate FiO2 01/02/17 12:00 71 123/57 01/02/17 12:00 Venturi Mask 50 01/02/17 11:45 73 130/63 01/02/17 11:30 76 129/59 01/02/17 11:29 36.5 74 121/64 01/02/17 11:28 36.3 75 16 121/64 94 Venturi Mask 50 01/02/17 11:15 84 130/62 01/02/17 08:00 Venturi Mask 50 01/02/17 07:29 36.7 87 24 110/62 90 Venturi Mask 01/02/17 04:32 36.7 84 27 139/61 99 Non-Rebreather 15.0 01/02/17 04:00 99 Venturi Mask 50 01/01/17 23:59 99 Venturi Mask 50 01/01/17 23:34 36.4 78 26 89/50 90 Mask 15.0 01/01/17 20:00 99 Venturi Mask 50 01/01/17 19:59 36.5 90 119/60 01/01/17 19:23 36.5 92 28 133/60 99 Venturi Mask 50 01/01/17 19:00 90 123/60 01/01/17 18:45 90 133/59 01/01/17 18:42 92 28 131/59 100 8.0 01/01/17 18:30 95 130/58 01/01/17 18:26 36.3 92 24 131/59 99 8.0 01/01/17 18:22 36.3 96 24 130/65 99 8.0 01/01/17 18:15 95 119/62 01/01/17 18:11 36.3 92 22 112/68 100 15.0 01/01/17 18:00 95 112/68 01/01/17 17:48 130 01/01/17 17:45 96 119/51 01/01/17 17:30 81 123/51 01/01/17 17:15 81 134/51 01/01/17 17:00 90 128/57 01/01/17 16:45 88 132/58 01/01/17 16:38 36.7 93 137/61 01/01/17 16:30 91 128/55 01/01/17 16:25 93 137/61 01/01/17 16:09 36.5 91 20 137/61 98 Venturi Mask 50 01/01/17 16:00 98 Venturi Mask 15.0 50 Lab Results: Results Past 24 Hours Test 01/02/17 06:23 Range/Units White Blood Count 12.82 4.8-10.8 K/uL Red Blood Count 2.84 4.2-5.4 M/uL Hemoglobin 8.0 12.0-16.0 g/dL Hematocrit 23.5 37-47 % Mean Corpuscular Volume 82.7 80-100 fL Mean Corpuscular Hemoglobin 28.2 25-34 pg Mean Corpuscular Hemoglobin Concent 34.0 32-36 g/dl RDW Standard Deviation 52.3 36.4-46.3 fL RDW Coefficient of Variation 17.3 11.5-14.5 % Platelet Count 95 130-400 K/uL Mean Platelet Volume 9.5 7.4-10.4 fL Nucleated RBC Absolute Count (auto) 0.40 0-0 K/uL Nucleated Red Blood Cells % 3.1 % Sodium Level 139 136-145 mmol/L Potassium Level 3.9 3.5-5.1 mmol/L Chloride Level 106 98-107 mmol/L Carbon Dioxide Level 20 21-32 mmol/L Anion Gap 13.0 3-11 mmol/L Blood Urea Nitrogen 53 7-18 mg/dl Creatinine 3.10 0.60-1.20 mg/dl Est Creatinine Clear Calc Drug Dose 12.0 ml/min Estimated GFR () 15.4 Estimated GFR (Non- 13.3 BUN/Creatinine Ratio 17.0 10-20 Random Glucose 86 70-99 mg/dl Calcium Level 7.7 8.5-10.1 mg/dl
[2017-01-02] MEDS ORDERED: NURSING VERBAL MED ORDER ONE (15:30)
[2017-01-03] VITALS (19 sets, daily range): BP systolic 94–154; BP diastolic 48–72; PULSE 69–86; TEMP 36.3–36.8; O2SAT 96–100
[2017-01-03] MEDS: PIPERACILL/TAZOBAC IV 3.375 GM in DEXTROSE 5% 100ML IV SCH ×2 (03:53→16:06)
[2017-01-03 06:16] LABS: MEAN CELL VOLUME 84.9 fL (80-100); MEAN CORPUSCULAR HEMOGLOBIN 29.2 pg (25-34); MEAN CORPUSCULAR HGB CONC 34.3 g/dl (32-36); RED BLOOD COUNT 2.71 M/uL (4.2-5.4)
[2017-01-03 06:20] LABS: MEAN PLATELET VOLUME 10.5 fL (7.4-10.4); PLATELET COUNT 86 K/uL (130-400)
[2017-01-03 06:55] LABS: BASO % 0.2 %; BASO ABS # 0.02 K/uL (0-0.2); BUN/CREATININE RATIO 14.6 (10-20); CALCIUM 7.9 mg/dl (8.5-10.1); COMPLETE YES; CREATININE 2.3 mg/dl (0.60-1.20); EOS % 0.7 %; IG% 0.9 %; LARGE PLATELETS 1+; LYMPH % 9.2 %; LYMPH ABS # 1.14 K/uL (1.2-3.4); MONO % 7.4 %; NEUT % 81.6 %; POTASSIUM 3.5 mmol/L (3.5-5.1); TARGET CELLS 1+
[2017-01-03] MEDS: ASPIRIN 81 MG ECTAB PO SCH (07:18)
[2017-01-03] MEDS: NEPHROCAPS PO SCH (07:18)
[2017-01-03] MEDS: DOCUSATE SODIUM 100 MG CAP PO SCH ×2 (07:18→20:52)
[2017-01-03] MEDS: CALCIUM ACETATE 667MG GELCAP PO SCH ×3 (07:18→16:07)
[2017-01-03] MEDS ORDERED: EPOETIN ALFA 4000 UNITS/ML VIAL IV. ONE (08:30)
[2017-01-03] MEDS: NYSTATIN SUSP 500,000 U/5 ML UDC PO SCH ×4 (08:35→20:52)
[2017-01-03] MEDS: CLOTRIMAZOLE 1% CR 15 GM TUBE EXT SCH ×2 (09:00→20:53)
--- NOTE | 2017-01-03 10:55 | Progress Note ---
Internal Med Progress Note Date of Service: Jan 03, 2017. Provider Documentation: SUBJECTIVE: Patient's mental status is marginally better - awake, oriented x 2, follows simple commands. No chest pain, fever, chills. Has some bleeding at site of Dialysis catheter insertion. Receiving dialysis today OBJECTIVE: Vital Signs-as noted below Exam: General-Awake, oriented x 2, Lethargic, slow to respond, follows simple commands Neck-Supple Lungs-AEBE decreased, Crackles all over; Right chest- Dialysis catheter- bleeding at site. Heart-S1, S2 normal Abdomen-Soft, non tender, non distended, BS present Extremities-B.L Lower extremity edema + dressing + - cellulitis Neuro- Slow to respond, Grossly no deficits, able to move all extremities Skin- Yeast infection b/l groin/Left breast Lab data as noted below. ASSESSMENT & PLAN: ACUTE ON CHRONIC DIASTOLIC CHF : Improving -Fluid overloaded in setting of CKD-V, progressively worsening and refusing dialysis -S/P IV lasix/Albumin . -Started on dialysis with fluid removal on 12/31/16 after placement of Right dialysis catheter -Nephrology on board. Appreciate inputs ESRD ON HD: Patient had been offered dialysis in past, but she refused multiple times per Dr Denton and the discussions have been in front of who is aware about it. She refused to give consent for dialysis catheter initially but than later agreed. -S/P Dialysis catheter placement on 12/31/16- some bleeding from site noted. Vascular sx aware- recommending pressure dressings and close monitoring. -Dialysis newly started on 12/31/16. -Nephrology on board. Appreciate inputs. Discussed with nephrology LOWER EXTREMITY CELLULITIS WITH INFECTED WOUNDS: Secondary to Bilateral Lower extremity swelling from ESRD Patient has had B/L Lower ext cellulitis for more than a year, would not allow any one to look at it. Had blister which bursted with yellowish discharge -Afebrile -On IV Zosyn (Day 6)--> Discontinued doxycycline on 01/02/17 (6th day) as Zosyn should cover strep/pseudomonas per cx results. Norvasc held due to LE edema. -Bl Cultures x 2 - negative, Wound culture - pseudomonas + strep + pansensitive METABOLIC ENCEPHALOPATHY -Improving Secondary to ESRD/Cellulitis -Mental status- marginal improvement today -Monitor with rx ACUTE BLOOD LOSS ANEMIA -Hb down to 7 with bleeding from dialysis catheter site/with suctioning in setting of Chronic anemia with CKD -S/P 1 unit of PRBC today -Monitor H & h DYSPHAGIA Patient does have difficulty swallowing, which is a chronic issue per family. No odynophagia -Speech re evaluation requested -Will continue with IV antibiotics as above which would also cover for possible aspiration pneumonia -Aspiration precautions + FUNGAL INFECTION B/L Groins, Left breast -Clotrimazole cream ordered HTN- Stable HX OF OLD CVA Per CT scan THROMBOCYTOPENIA/ANEMIA OF CHRONIC KIDNEY DISEASE -No signs of active bleeding -Nephrology on board NUTRITION NPO due to AMS/Aspiration risk. Plan was to do dialysis and hopefully with improved mental status attempted PO feedings. Speech re evaluated yesterday- failed again Will try today as mental status is better DVT prophylaxis. SCDs . RE: thrombocytopenia DNR/DNI Px requesting updates from providers. Mr. Tony King at . DISPOSITION Continue with tele monitoring Prognosis guarded Tried calling son allyson to give update- went into voice message Vital Signs: Date Time Temp Pulse Resp B/P Pulse Ox O2 Delivery O2 Flow Rate FiO2 01/03/17 10:11 36.5 83 112/55 01/03/17 10:00 82 95/48 01/03/17 09:45 80 98/54 01/03/17 09:30 79 94/58 01/03/17 09:15 80 108/60 01/03/17 09:00 82 123/55 01/03/17 08:45 75 107/50 01/03/17 08:30 82 154/72 01/03/17 08:15 75 120/54 01/03/17 08:00 75 128/56 01/03/17 08:00 Nasal Cannula 6.0 01/03/17 07:45 69 118/57 01/03/17 07:30 75 130/54 01/03/17 07:15 74 126/57 01/03/17 07:00 77 122/55 01/03/17 06:45 36.7 81 125/67 01/03/17 04:00 Nasal Cannula 01/03/17 04:00 36.8 86 16 136/60 96 Nasal Cannula 4.0 01/02/17 23:59 Nasal Cannula 01/02/17 23:46 36.7 81 12 127/64 98 Nasal Cannula 4.0 01/02/17 20:00 Nasal Cannula 01/02/17 19:24 36.5 83 20 116/72 99 Nasal Cannula 6.0 01/02/17 16:00 Venturi Mask 50 01/02/17 15:44 36.5 83 20 126/66 96 Nasal Cannula 6.0 01/02/17 14:56 36.5 83 131/72 01/02/17 14:45 76 127/65 01/02/17 14:30 75 125/51 01/02/17 14:15 79 133/49 01/02/17 14:00 80 125/54 01/02/17 13:45 77 135/74 01/02/17 13:30 74 133/51 01/02/17 13:15 75 141/75 01/02/17 13:06 83 101/50 01/02/17 13:00 81 135/68 01/02/17 12:45 70 132/69 01/02/17 12:30 77 129/64 01/02/17 12:15 75 131/55 01/02/17 12:00 71 123/57 01/02/17 12:00 Venturi Mask 50 01/02/17 11:45 73 130/63 01/02/17 11:30 76 129/59 01/02/17 11:29 36.5 74 121/64 01/02/17 11:28 36.3 75 16 121/64 94 Venturi Mask 50 01/02/17 11:15 84 130/62 Lab Results: Results Past 24 Hours Test 01/03/17 05:25 Range/Units White Blood Count 12.40 4.8-10.8 K/uL Red Blood Count 2.71 4.2-5.4 M/uL Hemoglobin 7.9 12.0-16.0 g/dL Hematocrit 23.0 37-47 % Mean Corpuscular Volume 84.9 80-100 fL Mean Corpuscular Hemoglobin 29.2 25-34 pg Mean Corpuscular Hemoglobin Concent 34.3 32-36 g/dl Platelet Count 86 130-400 K/uL Mean Platelet Volume 10.5 7.4-10.4 fL Neutrophils (%) (Auto) 81.6 % Lymphocytes (%) (Auto) 9.2 % Monocytes (%) (Auto) 7.4 % Eosinophils (%) (Auto) 0.7 % Basophils (%) (Auto) 0.2 % Neutrophils # (Auto) 10.12 1.4-6.5 K/uL Lymphocytes # (Auto) 1.14 1.2-3.4 K/uL Monocytes # (Auto) 0.92 0.11-0.59 K/uL Eosinophils # (Auto) 0.09 0-0.5 K/uL Basophils # (Auto) 0.02 0-0.2 K/uL RDW Standard Deviation 55.0 36.4-46.3 fL RDW Coefficient of Variation 17.8 11.5-14.5 % Immature Granulocyte % (Auto) 0.9 % Immature Granulocyte # (Auto) 0.11 0.00-0.02 K/uL Nucleated RBC Absolute Count (auto) 0.32 0-0 K/uL Nucleated Red Blood Cells % 2.6 % Large Platelets 1+ Target Cells 1+ Sodium Level 144 136-145 mmol/L Potassium Level 3.5 3.5-5.1 mmol/L Chloride Level 105 98-107 mmol/L Carbon Dioxide Level 29 21-32 mmol/L Anion Gap 10.0 3-11 mmol/L Blood Urea Nitrogen 34 7-18 mg/dl Creatinine 2.30 0.60-1.20 mg/dl Est Creatinine Clear Calc Drug Dose 15.7 ml/min Estimated GFR () 22.0 Estimated GFR (Non- 19.0 BUN/Creatinine Ratio 14.6 10-20 Random Glucose 81 70-99 mg/dl Calcium Level 7.9 8.5-10.1 mg/dl
[2017-01-04] VITALS (7 sets, daily range): BP systolic 121–156; BP diastolic 52–64; PULSE 73–78; TEMP 36.4–36.9; O2SAT 94–100
[2017-01-04] MEDS: PIPERACILL/TAZOBAC IV 3.375 GM in DEXTROSE 5% 100ML IV SCH (03:58)
[2017-01-04] MEDS: ASPIRIN 81 MG ECTAB PO SCH (07:57)
[2017-01-04] MEDS: CLOTRIMAZOLE 1% CR 15 GM TUBE EXT SCH ×2 (07:57→21:02)
[2017-01-04] MEDS: NEPHROCAPS PO SCH (07:57)
[2017-01-04] MEDS: CALCIUM ACETATE 667MG GELCAP PO SCH ×3 (07:57→16:45)
[2017-01-04] MEDS: DOCUSATE SODIUM 100 MG CAP PO SCH ×2 (07:57→21:02)
[2017-01-04] MEDS: NYSTATIN SUSP 500,000 U/5 ML UDC PO SCH ×4 (07:58→21:02)
[2017-01-04] MEDS ORDERED: [UNRECOGNIZED DRUG - OTHER] PRN (11:30)
[2017-01-04] MEDS ORDERED: CIPROFLOXACIN CONSULT ACTIVE PRN ×2 (11:30)
--- NOTE | 2017-01-04 11:41 | Progress Note ---
Internal Med Progress Note Date of Service: Jan 04, 2017. Provider Documentation: SUBJECTIVE: Patient's mental status is better - awake, oriented x 2, follows simple commands. OOB --> chair. Tolerated breakfast today No chest pain, fever, chills. OBJECTIVE : Vital Signs-as noted below Exam: General-Awake, oriented x 2, Lethargic, slow to respond Neck-Supple Lungs-AEBE decreased, Crackles all over; Right chest- Dialysis catheter- bleeding at site. Heart-S1, S2 normal Abdomen-Soft, non tender, non distended, BS present Extremities-B.L Lower extremity edema + dressing + - cellulitis Neuro- Slow to respond, Grossly no deficits, able to move all extremities Skin- Yeast infection b/l groin/Left breast Lab data as noted below. ASSESSMENT & PLAN: ACUTE ON CHRONIC DIASTOLIC CHF : Improving -Fluid overloaded in setting of CKD-V, progressively worsening. -S/P IV lasix/Albumin -Started on dialysis with fluid removal on 12/31/16 after placement of Right dialysis catheter. Received 4 treatments. -Nephrology on board. Appreciate inputs ESRD ON HD: Patient had been offered dialysis in past, but she refused multiple times per Dr Denton and the discussions had been in front of who was aware about it. She refused to give consent for dialysis catheter initially but than later agreed. -S/P Dialysis catheter placement on 12/31/16- some bleeding from site noted- resolved. Vascular sx on board. -Dialysis newly started on 12/31/16. Received 4 rxs so far. -Nephrology on board. Appreciate inputs. Discussed with nephrology. LOWER EXTREMITY CELLULITIS WITH INFECTED WOUNDS (Enterococcus Fecalis/ Pseudomonas) : Improving Secondary to Bilateral Lower extremity swelling from ESRD Patient has had B/L Lower ext cellulitis for more than a year, would not allow any one to look at it. Had blister which bursted with yellowish discharge -Afebrile -S/P IV Zosyn (Day 5)--> Discontinued doxycycline on 01/02/17 (5th day) as Zosyn should cover strep/pseudomonas per cx results. Changed to Ciprofloxacin to cover pseudomonas, Keflex to cover E fecalis per c/s results today-01/04 ( 5 more days of rx to complete 10 day course) . Norvasc held due to LE edema. -Bl Cultures x 2 - negative, Wound culture - pseudomonas + E fecalis + METABOLIC ENCEPHALOPATHY -Improved Secondary to ESRD/Cellulitis -Mental status- marginal improvement today -Monitor with rx ACUTE BLOOD LOSS ANEMIA -Hb down to 7 with bleeding from dialysis catheter site/with suctioning in setting of Chronic anemia with CKD -S/P 1 unit of PRBC since admission. -Monitor H & H DYSPHAGIA Patient does have difficulty swallowing, which is a chronic issue per family. No odynophagia -Speech re evaluation requested- able to tolerate Pureed diet -Received IV Zosyn x 5 days for cellulitis. So should cover for aspiration which likely happened on presentation. -Aspiration precautions + FUNGAL INFECTION B/L Groins, Left breast -Clotrimazole cream HTN- Stable HX OF OLD CVA Per CT scan THROMBOCYTOPENIA/ANEMIA OF CHRONIC KIDNEY DISEASE -Nephrology on board NUTRITION NPO due to AMS/Aspiration risk initially. With dialysis - mental status has improved and after unsuccessful attempts by speech , eventually was able to tolerate Pureed diet on 01/03/17. Did well with pureed diet. Plan is for video fluroscopy on thursday Appreciate speech therapy inputs. DVT prophylaxis. SCDs . RE: thrombocytopenia DNR/DNI Px requesting updates from providers. Mr. Tony King at . DISPOSITION Continue with tele monitoring Prognosis guarded Updated family yesterday. Vital Signs: Date Time Temp Pulse Resp B/P Pulse Ox O2 Delivery O2 Flow Rate FiO2 01/04/17 08:00 Nasal Cannula 3.0 01/04/17 07:37 36.8 75 18 144/52 95 3.0 01/04/17 04:06 36.5 74 20 121/64 94 Nasal Cannula 3.0 01/04/17 04:00 Nasal Cannula 3.0 Humidified Oxygen 01/04/17 00:04 Nasal Cannula 3.0 Humidified Oxygen 01/04/17 00:00 36.5 75 20 156/63 98 Nasal Cannula 3.0 01/03/17 20:00 Nasal Cannula 4.0 Humidified Oxygen 01/03/17 19:22 36.3 84 18 135/62 100 Nasal Cannula 6.0 Humidified Oxygen 01/03/17 16:00 Nasal Cannula 6.0 01/03/17 15:58 36.5 76 19 133/59 100 Nasal Cannula 0.6 Humidified Oxygen 01/03/17 12:00 Nasal Cannula 6.0 01/03/17 11:46 36.4 85 14 131/48 99 6.0
[2017-01-04] MEDS: CIPROFLOXACIN 250 MG TAB PO SCH ×2 (12:46→21:02)
[2017-01-04] MEDS: CEPHALEXIN MONOHYDRATE 250 MG CAP PO SCH ×2 (12:47→21:02)
--- NOTE | 2017-01-04 16:18 | PROGRESS NOTE ---
DATE: 01/04/2017 SUBJECTIVE: The patient is doing better. She is now in the step down ICU. She had dialysis 4 days in a row. The catheter worked okay despite the presence of hematoma. Her vital signs are getting better. She is on nasal cannula now with 99% oxygen saturation, blood pressure 138/63, temperature is 36.4 and she is not needing bear hugger now; pulse is 73 per minute. Mucous membrane is moist. She is actually talking and asking me questions and asking me my name. According to the family, she looks better, but tired. She was out of bed and stayed in the chair for almost 6 hours yesterday after dialysis. PHYSICAL EXAMINATION: GENERAL: Awake, alert, oriented x2, weak and frail. HEENT: Mucous membrane is moist. NECK: Supple. LUNGS: Decreased breath sounds at the bases, poor quality exam. CARDIOVASCULAR: 2/6 systolic murmur. ABDOMEN: Bowel sounds positive. EXTREMITIES: 1-2+ edema, legs wrapped. She has a big bandage over the right side of her neck. LABORATORY TESTS: There is no lab from this morning. Laboratory tests from yesterday shows a hemoglobin of 7.9, WBC count of 12.40, platelet count 86,000. Creatinine was 2.30, sodium 144, potassium 3.5. ASSESSMENT AND PLAN: 1. Chronic kidney disease stage V. She has been started on chronic dialysis and she has had 4 days of dialysis so far. Volume status is better. She is already down by almost 20 pounds. 2. Anemia of chronic renal failure. She has been transfused and she did get some Procrit. Tentatively we are planning to do dialysis tomorrow as she still has fluid overload. BERNADINE
[2017-01-05] VITALS (23 sets, daily range): BP systolic 123–175; BP diastolic 63–89; PULSE 78–93; TEMP 36.4–37.1; O2SAT 97–100
[2017-01-05 06:38] LABS: BUN/CREATININE RATIO 14.8 (10-20); CALCIUM 8.3 mg/dl (8.5-10.1); POTASSIUM 3.7 mmol/L (3.5-5.1)
[2017-01-05 06:59] LABS: MEAN CELL VOLUME 89.9 fL (80-100); MEAN CORPUSCULAR HEMOGLOBIN 28.8 pg (25-34); MEAN PLATELET VOLUME 10.7 fL (7.4-10.4); PLATELET COUNT 75 K/uL (130-400); RED BLOOD COUNT 2.78 M/uL (4.2-5.4); WHITE BLOOD COUNT 9.37 K/uL (4.8-10.8)
[2017-01-05 07:08] LABS: PLT ESTIMATE DECREASED
[2017-01-05] MEDS: CALCIUM ACETATE 667MG GELCAP PO SCH ×3 (07:30→16:32)
[2017-01-05] MEDS: CLOTRIMAZOLE 1% CR 15 GM TUBE EXT SCH ×2 (08:00→20:52)
[2017-01-05] MEDS ORDERED: EPOETIN ALFA 10,000 UNITS/ML VIAL IV. SCH (08:00)
--- NOTE | 2017-01-05 10:02 | Nephrology Progress Note ---
Nephrology Progress Note Date of Service: Jan 05, 2017. Subjective 81 yo female with ckd stage 5, bilateral cellulitis, altered mental status, dysphagia, sob, severe MR, who had dialysis catheter placed and underwent several days of dialysis for fluid removal and clearance of toxins. pt more alert now. still with decreased appetite. eating better. still quite tired. when she lays flat, her sats drop significantly. Objective Date Time Temp Pulse Resp B/P Pulse Ox O2 Delivery O2 Flow Rate FiO2 01/05/17 07:30 36.5 86 16 153/65 99 Nasal Cannula 6.0 01/05/17 04:00 Nasal Cannula 6.0 Humidified Oxygen 01/05/17 03:44 36.9 88 22 161/65 99 Nasal Cannula 6.0 Humidified Oxygen 01/05/17 00:02 Nasal Cannula 6.0 Humidified Oxygen 01/04/17 23:39 36.9 78 24 143/56 100 Nasal Cannula 6.0 Humidified Oxygen 01/04/17 20:00 Nasal Cannula 5.0 Humidified Oxygen 01/04/17 19:09 36.4 75 22 148/54 100 Nasal Cannula 6.0 Humidified Oxygen 01/04/17 16:03 Nasal Cannula 3.0 01/04/17 16:01 36.8 78 16 125/62 95 Nasal Cannula 3.0 01/04/17 12:00 36.4 73 18 138/63 99 3.0 01/04/17 12:00 Nasal Cannula 3.0 Physical Exam: General-aaox3, weak Eyes-no scleral icterus ENT-mmm Neck-supple Lungs-mild rales at right base Heart-2/6 systolic murmur Abdomen-bs+ s/nt Extremities-+1 edema, wrapped Neuro-more alert, follows commands Current Inpatient Medications Medications (Trade) Dose Ordered Sig/Cj Route Start Time Stop Time Status Last Admin Dose Admin Acetaminophen (Tylenol Tab) 650 mg Q4H PRN PO 12/30/16 00:30 01/29/17 00:29 Nitroglycerin (Nitrostat Tab) 0.4 mg UD PRN SL 12/30/16 00:30 01/29/17 00:29 Hydromorphone HCl (Dilaudid Inj) 0.5 mg Q6H PRN IV 12/30/16 00:30 01/13/17 00:29 Tramadol HCl (Ultram Tab) 25 mg Q6H PRN PO 12/30/16 00:30 01/29/17 00:29 Ondansetron HCl (Zofran Inj) 4 mg Q6H PRN IV 12/30/16 00:30 01/29/17 00:29 Hydralazine HCl (Apresoline Tab) 50 mg TID PO 12/30/16 09:00 01/29/17 08:59 Future Hold 01/01/17 21:09 50 MG Isosorbide Mononitrate (Imdur Ext Rel Tab) 60 mg QAM PO 12/30/16 09:00 01/29/17 08:59 Future Hold 12/30/16 08:22 60 MG Metoprolol Tartrate (Lopressor Tab) 12.5 mg BID PO 12/30/16 09:00 01/29/17 08:59 Future Hold 01/01/17 21:09 12.5 MG Albuterol/ Ipratropium (Duoneb) 3 ml Q2H PRN INH 12/30/16 00:30 01/29/17 00:29 12/31/16 16:13 3 ML Aspirin (Ecotrin Tab) 81 mg QAM PO 12/30/16 09:00 01/29/17 08:59 01/04/17 07:57 81 MG Calcium Acetate (Phoslo Cap) 1,334 mg TIDM PO 12/30/16 07:30 01/29/17 07:29 01/04/17 16:45 1,334 MG Docusate Sodium (coLACE CAP) 100 mg BID PO 12/30/16 21:00 01/29/17 20:59 01/04/17 21:02 100 MG Clotrimazole (Lotrimin 1% Crm) 1 appln BID EXT 12/30/16 21:00 01/29/17 20:59 01/04/17 21:02 1 APPLN Nystatin (Mycostatin Susp) 5 ml QID PO 12/30/16 21:00 01/29/17 20:59 01/04/17 21:02 5 ML Oxymetazoline HCl (Afrin 0.05% Nasal Thayer) 4 sprays Q12H PRN NA 12/31/16 20:00 01/30/17 19:59 Vitamin B Complex/ Vit C/Folic Acid (Nephrocaps) 1 cap QAM PO 01/02/17 09:00 02/01/17 08:59 01/04/17 07:57 1 CAP Ciprofloxacin (Ciprofloxacin Tab) 250 mg Q12 PO 01/04/17 12:00 01/14/17 11:59 01/04/17 21:02 250 MG Cephalexin Monohydrate (Keflex Cap) 250 mg Q12 PO 01/04/17 12:00 01/14/17 11:59 01/04/17 21:02 250 MG Ciprofloxacin (Consult) 1 ea UD PRN N/A 01/04/17 11:30 02/03/17 11:29 Miscellaneous Information 1 ea UD PRN N/A 01/04/17 11:30 02/03/17 11:29 Epoetin Vamshi (Procrit Inj) 10,000 units 0800 IV. 01/05/17 08:00 01/05/17 23:59 Last 24 Hours Test 01/05/17 05:24 White Blood Count 9.37 K/uL Red Blood Count 2.78 M/uL Hemoglobin 8.0 g/dL Hematocrit 25.0 % Mean Corpuscular Volume 89.9 fL Mean Corpuscular Hemoglobin 28.8 pg Mean Corpuscular Hemoglobin Concent 32.0 g/dl RDW Standard Deviation 57.4 fL RDW Coefficient of Variation 18.0 % Platelet Count 75 K/uL Mean Platelet Volume 10.7 fL Nucleated RBC Absolute Count (auto) 0.14 K/uL Nucleated Red Blood Cells % 1.5 % Platelet Estimate DECREASED Sodium Level 143 mmol/L Potassium Level 3.7 mmol/L Chloride Level 105 mmol/L Carbon Dioxide Level 28 mmol/L Anion Gap 10.0 mmol/L Blood Urea Nitrogen 45 mg/dl Creatinine 3.00 mg/dl Est Creatinine Clear Calc Drug Dose 12.2 ml/min Estimated GFR () 16.0 Estimated GFR (Non- 13.8 BUN/Creatinine Ratio 14.8 Random Glucose 95 mg/dl Calcium Level 8.3 mg/dl Assessment & Plan CKD stage 5-pt is ESRD. will need chronic dialysis as an outpatient. pts mental status much improved and swallowing better. legs are improving as well. still with volume overload and requires daily dialysis for appropriate fluid removal. plan on dialysis again today and tomorrow and thursday trying to remove fluid and toxins. will speak to family service caseworker about setting up outpt dialysis although likely to go to residential for rehab. KEYON: to recheck phos levels tomorrow. on phoslo with meals and phos levels should be improving with dialysis. Anemia of renal failure-giving procrit to try to raise blood counts.
[2017-01-05] MEDS: ASPIRIN 81 MG ECTAB PO SCH (12:21)
[2017-01-05] MEDS: CIPROFLOXACIN 250 MG TAB PO SCH ×2 (12:22→20:52)
[2017-01-05] MEDS: CEPHALEXIN MONOHYDRATE 250 MG CAP PO SCH ×2 (12:22→20:52)
[2017-01-05] MEDS: NEPHROCAPS PO SCH (12:23)
[2017-01-05] MEDS: DOCUSATE SODIUM 100 MG CAP PO SCH ×2 (12:23→20:52)
[2017-01-05] MEDS: NYSTATIN SUSP 500,000 U/5 ML UDC PO SCH ×4 (12:23→20:53)
--- NOTE | 2017-01-05 13:14 | Progress Note ---
Internal Med Progress Note Date of Service: Jan 05, 2017. Provider Documentation: SUBJECTIVE: Patient's mental status is better - awake, oriented x 2, follows simple commands. OOB --> chair. Tolerating pureed diet No chest pain, fever, chills. S/P Dialysis OBJECTIVE : Vital Signs-as noted below Exam: General-Awake, oriented x 2, Follows simple commands, slow to respond Neck-Supple Lungs-AEBE decreased, Crackles all over; Right chest- Dialysis catheter + bleeding stopped Heart-S1, S2 normal Abdomen-Soft, non tender, non distended, BS present Extremities-B.L Lower extremity edema + dressing + - cellulitis Neuro- Slow to respond, Grossly no deficits, able to move all extremities Skin- Yeast infection b/l groin/Left breast Lab data as noted below. 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 -S/P IV lasix/Albumin - d id not help -Started on dialysis with fluid removal on 12/31/16 after placement of Right dialysis catheter. Receiving almost daily rxs -Nephrology on board. Appreciate inputs PLAN: Per nephrology to dialyse tomorrow and day after for more fluid removal. ESRD ON HD: Patient had been offered dialysis in past, but she refused multiple times per Dr Denton and the discussions had been in front of who was aware about it. She refused to give consent for dialysis catheter initially but than later agreed. -S/P Dialysis catheter placement on 12/31/16- some bleeding from site noted- resolved. Vascular sx on board. -Dialysis newly started on 12/31/16. Received almost daily rxs. Plan is to dialyse tomorrow, day after per nephrology -Nephrology on board. Appreciate inputs. Discussed with nephrology. LOWER EXTREMITY CELLULITIS WITH INFECTED WOUNDS (Enterococcus Fecalis/ Pseudomonas) : Improving Secondary to Bilateral Lower extremity swelling from ESRD Patient has had B/L Lower ext cellulitis for more than a year, would not allow any one to look at it. Had blister which bursted with yellowish discharge -Afebrile -S/P IV Zosyn (Day 5)--> Discontinued doxycycline on 01/02/17 (5th day) as Zosyn should cover strep/pseudomonas per cx results. Changed to Ciprofloxacin to cover pseudomonas, Keflex to cover E fecalis per c/s results on 01/04 ( 4 more days of rx to complete 10 day course till 01/08/17) . Norvasc held due to LE edema. -Bl Cultures x 2 - negative, Wound culture - pseudomonas + E fecalis + METABOLIC ENCEPHALOPATHY -Resolving Secondary to ESRD/Cellulitis -Mental status- improving daily, getting near her baseline, but still slow -Monitor with rx ACUTE BLOOD LOSS ANEMIA/ ANEMIA OF CKD -Hb down to 7 with bleeding from dialysis catheter site/with suctioning in setting of Chronic anemia with CKD -S/P 1 unit of PRBC since admission. -Monitor H & H HTN- Uncontrolled -Restart Metoprolol, Hydralazine, Imdur 60 mg daily as able to tolerate PO now -Monitor DYSPHAGIA Patient does have difficulty swallowing, which is a chronic issue per family. No odynophagia -Speech re evaluation requested- able to tolerate Pureed diet x 2 days. Plan for video swallow test today -May require further dysphagia evaluation once stabilizes -Received IV Zosyn x 5 days for cellulitis. So should cover for aspiration which likely happened on presentation. -Aspiration precautions + FUNGAL INFECTION B/L Groins, Left breast -Clotrimazole cream HX OF OLD CVA Per CT scan THROMBOCYTOPENIA -No active bleeding -Monitor NUTRITION NPO due to AMS/Aspiration risk initially. With dialysis - mental status has improved and after unsuccessful attempts by speech , eventually was able to tolerate Pureed diet on 01/03/17. Did well with pureed diet. Plan is for video fluroscopy today Appreciate speech therapy inputs. DVT prophylaxis. SCDs . RE: thrombocytopenia DNR/DNI Px requesting updates from providers. Mr. Tony King at . DISPOSITION Tele monitoring Prognosis guarded Updated family yesterday and will do it today Vital Signs: Date Time Temp Pulse Resp B/P Pulse Ox O2 Delivery O2 Flow Rate FiO2 01/05/17 12:30 36.6 83 16 172/80 100 Nasal Cannula 3.0 01/05/17 12:27 100 Nasal Cannula 3.0 01/05/17 12:24 36.4 82 16 172/80 100 Nasal Cannula 3.0 01/05/17 09:15 83 166/79 01/05/17 09:00 88 175/84 01/05/17 08:59 37.1 93 165/84 01/05/17 08:00 98 Nasal Cannula 6.0 01/05/17 07:30 36.5 86 16 153/65 99 Nasal Cannula 6.0 01/05/17 04:00 Nasal Cannula 6.0 Humidified Oxygen 01/05/17 03:44 36.9 88 22 161/65 99 Nasal Cannula 6.0 Humidified Oxygen 01/05/17 00:02 Nasal Cannula 6.0 Humidified Oxygen 01/04/17 23:39 36.9 78 24 143/56 100 Nasal Cannula 6.0 Humidified Oxygen 01/04/17 20:00 Nasal Cannula 5.0 Humidified Oxygen 01/04/17 19:09 36.4 75 22 148/54 100 Nasal Cannula 6.0 Humidified Oxygen 01/04/17 16:03 Nasal Cannula 3.0 01/04/17 16:01 36.8 78 16 125/62 95 Nasal Cannula 3.0 Lab Results: Results Past 24 Hours Test 01/05/17 05:24 Range/Units White Blood Count 9.37 4.8-10.8 K/uL Red Blood Count 2.78 4.2-5.4 M/uL Hemoglobin 8.0 12.0-16.0 g/dL Hematocrit 25.0 37-47 % Mean Corpuscular Volume 89.9 80-100 fL Mean Corpuscular Hemoglobin 28.8 25-34 pg Mean Corpuscular Hemoglobin Concent 32.0 32-36 g/dl RDW Standard Deviation 57.4 36.4-46.3 fL RDW Coefficient of Variation 18.0 11.5-14.5 % Platelet Count 75 130-400 K/uL Mean Platelet Volume 10.7 7.4-10.4 fL Nucleated RBC Absolute Count (auto) 0.14 0-0 K/uL Nucleated Red Blood Cells % 1.5 % Platelet Estimate DECREASED Sodium Level 143 136-145 mmol/L Potassium Level 3.7 3.5-5.1 mmol/L Chloride Level 105 98-107 mmol/L Carbon Dioxide Level 28 21-32 mmol/L Anion Gap 10.0 3-11 mmol/L Blood Urea Nitrogen 45 7-18 mg/dl Creatinine 3.00 0.60-1.20 mg/dl Est Creatinine Clear Calc Drug Dose 12.2 ml/min Estimated GFR () 16.0 Estimated GFR (Non- 13.8 BUN/Creatinine Ratio 14.8 10-20 Random Glucose 95 70-99 mg/dl Calcium Level 8.3 8.5-10.1 mg/dl
--- NOTE | 2017-01-05 14:08 | DIAGNOSTIC IMAGING REPORT ---
MODIFIED BARIUM SWALLOW CLINICAL HISTORY: Establish safest diet. COMPARISON STUDY: No previous studies for comparison. Fluoroscopy time: 2.5 minutes. FINDINGS: There was minimal tracheal aspiration with thin liquids. There was no aspiration with nectar thick liquids. There is no aspiration with pudding or crackers with paste. Premature spillage was noted with pulling within the vallecula. Epiglottic inversion was diminished. IMPRESSION: 1. Mild tracheal aspiration with thin liquids. No aspiration with the remainder of the consistencies. 2. Full recommendations by speech pathology to follow. Electronically signed by: Devyn Nicole M.D. 01/05/2017 2:07 PM Dictated Date/Time: 01/05/2017 2:02 PM
[2017-01-05] MEDS: METOPROLOL TARTRATE 50 MG TAB PO SCH (20:53)
[2017-01-06] VITALS (26 sets, daily range): BP systolic 74–154; BP diastolic 41–92; PULSE 74–94; TEMP 36.4–36.9; O2SAT 94–99
[2017-01-06 06:38] LABS: HEMATOCRIT 27.1 % (37-47); MEAN CELL VOLUME 90.3 fL (80-100); MEAN CORPUSCULAR HEMOGLOBIN 28.7 pg (25-34); MEAN CORPUSCULAR HGB CONC 31.7 g/dl (32-36)
--- NOTE | 2017-01-06 06:53 | Nephrology Progress Note ---
Nephrology Progress Note Date of Service: Jan 06, 2017. Subjective 81 yo female with ckd stage 5, bilateral cellulitis, dysphagia, severe MR, who started on dialysis last week and currently overall doing much better. on 2 liters oxygen. leg swelling much improved. swallowing better. still with poor appetite and weak. Objective Date Time Temp Pulse Resp B/P Pulse Ox O2 Delivery O2 Flow Rate FiO2 01/06/17 04:01 98 Nasal Cannula 2.0 01/06/17 03:54 36.6 77 18 139/56 96 Nasal Cannula 2.0 01/06/17 00:00 98 Nasal Cannula 2.0 01/06/17 00:00 36.6 74 18 120/53 98 Nasal Cannula 2.0 01/05/17 20:30 Nasal Cannula 6.0 01/05/17 19:52 36.6 89 20 131/81 97 Nasal Cannula 3.0 Humidified Oxygen 01/05/17 16:39 36.7 89 20 167/89 100 Nasal Cannula 6.0 Humidified Oxygen 01/05/17 16:00 98 Nasal Cannula 6.0 01/05/17 12:30 36.6 83 16 172/80 100 Nasal Cannula 3.0 01/05/17 12:27 100 Nasal Cannula 3.0 01/05/17 12:24 36.4 82 16 172/80 100 Nasal Cannula 3.0 01/05/17 12:15 36.4 81 154/78 01/05/17 11:45 82 124/71 01/05/17 11:30 78 123/69 01/05/17 11:15 82 148/75 01/05/17 11:00 83 154/81 01/05/17 10:45 82 152/78 01/05/17 10:30 81 147/74 01/05/17 10:15 78 137/67 01/05/17 10:00 79 140/68 01/05/17 09:45 81 130/63 01/05/17 09:30 81 135/65 01/05/17 09:15 83 166/79 01/05/17 09:00 88 175/84 01/05/17 08:59 37.1 93 165/84 01/05/17 08:00 98 Nasal Cannula 6.0 01/05/17 07:30 36.5 86 16 153/65 99 Nasal Cannula 6.0 Physical Exam: General-aaox3 Eyes-no scleral icterus ENT-mmm Neck-supple Lungs-mild decreased breath sounds at bases Heart-2/6 systolic murmur Abdomen-bs+ s/nt Extremities-mild edema, wrapped Neuro-nonfocal Current Inpatient Medications Medications (Trade) Dose Ordered Sig/Cj Route Start Time Stop Time Status Last Admin Dose Admin Acetaminophen (Tylenol Tab) 650 mg Q4H PRN PO 12/30/16 00:30 01/29/17 00:29 Nitroglycerin (Nitrostat Tab) 0.4 mg UD PRN SL 12/30/16 00:30 01/29/17 00:29 Hydromorphone HCl (Dilaudid Inj) 0.5 mg Q6H PRN IV 12/30/16 00:30 01/13/17 00:29 Tramadol HCl (Ultram Tab) 25 mg Q6H PRN PO 12/30/16 00:30 01/29/17 00:29 Ondansetron HCl (Zofran Inj) 4 mg Q6H PRN IV 12/30/16 00:30 01/29/17 00:29 Hydralazine HCl (Apresoline Tab) 50 mg TID PO 12/30/16 09:00 01/29/17 08:59 Future hold 01/05/17 20:52 50 MG Isosorbide Mononitrate (Imdur Ext Rel Tab) 60 mg QAM PO 12/30/16 09:00 01/29/17 08:59 Future hold 12/30/16 08:22 60 MG Metoprolol Tartrate (Lopressor Tab) 12.5 mg BID PO 12/30/16 09:00 01/29/17 08:59 Future hold 01/05/17 20:53 12.5 MG Albuterol/ Ipratropium (Duoneb) 3 ml Q2H PRN INH 12/30/16 00:30 01/29/17 00:29 12/31/16 16:13 3 ML Aspirin (Ecotrin Tab) 81 mg QAM PO 12/30/16 09:00 01/29/17 08:59 01/05/17 12:21 81 MG Calcium Acetate (Phoslo Cap) 1,334 mg TIDM PO 12/30/16 07:30 01/29/17 07:29 01/05/17 16:32 1,334 MG Docusate Sodium (coLACE CAP) 100 mg BID PO 12/30/16 21:00 01/29/17 20:59 01/05/17 20:52 100 MG Clotrimazole (Lotrimin 1% Crm) 1 appln BID EXT 12/30/16 21:00 01/29/17 20:59 01/05/17 20:52 1 APPLN Nystatin (Mycostatin Susp) 5 ml QID PO 12/30/16 21:00 01/29/17 20:59 01/05/17 20:53 5 ML Oxymetazoline HCl (Afrin 0.05% Nasal [place]) 4 sprays Q12H PRN NA 12/31/16 20:00 01/30/17 19:59 Vitamin B Complex/ Vit C/Folic Acid (Nephrocaps) 1 cap QAM PO 01/02/17 09:00 02/01/17 08:59 01/05/17 12:23 1 CAP Ciprofloxacin (Ciprofloxacin Tab) 250 mg Q12 PO 01/04/17 12:00 01/14/17 11:59 01/05/17 20:52 250 MG Cephalexin Monohydrate (Keflex Cap) 250 mg Q12 PO 01/04/17 12:00 01/14/17 11:59 01/05/17 20:52 250 MG Ciprofloxacin (Consult) 1 ea UD PRN N/A 01/04/17 11:30 02/03/17 11:29 Miscellaneous Information 1 ea UD PRN N/A 01/04/17 11:30 02/03/17 11:29 Last 24 Hours Test 01/06/17 06:20 White Blood Count 7.20 K/uL Red Blood Count 3.00 M/uL Hemoglobin 8.6 g/dL Hematocrit 27.1 % Mean Corpuscular Volume 90.3 fL Mean Corpuscular Hemoglobin 28.7 pg Mean Corpuscular Hemoglobin Concent 31.7 g/dl RDW Standard Deviation 57.5 fL RDW Coefficient of Variation 18.1 % Nucleated RBC Absolute Count (auto) 0.11 K/uL Nucleated Red Blood Cells % 1.5 % Assessment & Plan CKD stage 5-pt is ESRD. setting up outpatient dialysis. for dialysis again today and tomorrow and then will go to a schedule. oxygenating better. KEYON: on phoslo with meals and phos levels should be improving with dialysis. rechecking this am. Anemia of renal failure-giving procrit to try to raise blood counts. hg levels are trending back up and now at 8.6. Access-continues to have oozing of catheter. pressure dressing applied. -will remove tovar catheter with minimal urine output.
[2017-01-06 07:11] LABS: BUN/CREATININE RATIO 13.2 (10-20); CALCIUM 8.7 mg/dl (8.5-10.1); CREATININE 2.6 mg/dl (0.60-1.20); POTASSIUM 3.6 mmol/L (3.5-5.1)
[2017-01-06 07:41] LABS: PHOSPHORUS 3.2 mg/dl (2.5-4.9)
[2017-01-06] MEDS ORDERED: EPOETIN ALFA 10,000 UNITS/ML VIAL IV. SCH (08:00)
[2017-01-06 08:09] LABS: PLATELET COUNT 69 K/uL (130-400)
[2017-01-06] MEDS: CALCIUM ACETATE 667MG GELCAP PO SCH ×3 (08:22→16:47)
[2017-01-06] MEDS: CLOTRIMAZOLE 1% CR 15 GM TUBE EXT SCH ×2 (08:23→20:42)
[2017-01-06] MEDS: CIPROFLOXACIN 250 MG TAB PO SCH ×2 (08:25→20:43)
[2017-01-06] MEDS: DOCUSATE SODIUM 100 MG CAP PO SCH ×2 (08:25→20:43)
[2017-01-06] MEDS: ASPIRIN 81 MG ECTAB PO SCH (08:26)
[2017-01-06] MEDS: ISOSORBIDE MONONITRATE 60 MG TABCR PO SCH (08:27)
[2017-01-06] MEDS: CEPHALEXIN MONOHYDRATE 250 MG CAP PO SCH ×2 (08:28→20:43)
[2017-01-06] MEDS: METOPROLOL TARTRATE 50 MG TAB PO SCH ×2 (08:29→20:43)
[2017-01-06] MEDS: NYSTATIN SUSP 500,000 U/5 ML UDC PO SCH ×4 (08:30→20:43)
[2017-01-06] MEDS: NEPHROCAPS PO SCH (08:30)
--- NOTE | 2017-01-06 10:10 | Progress Note ---
Internal Med Progress Note Date of Service: Jan 06, 2017. Provider Documentation: SUBJECTIVE: Patient is seen and examined at bedside. Had HD today. Feels well. Denies any chest pain, SOB, dizziness. Offers no complaints. Family at bedside. OBJECTIVE: Vital Signs-as noted below Exam: General:Alert, Awake, slow to respond, follows commands, thin, fragile Neck: Supple Eyes: EOMI, PERRL Lungs: B/L decreased breath sounds at bases, Dialysis catheter on right side of chest Heart:S1, S2. + Systolic murmur Abdomen:Soft, non tender, non distended, BS present Extremities: B/L LE edema, +dressing Neuro:Slow to respond, Grossly no deficits, moves all extremities Skin:+Yeast infection b/l groin/Left breast Lab data as noted below. ASSESSMENT & PLAN: ACUTE ON CHRONIC DIASTOLIC CHF: Fluid overloaded in setting of CKD-V which has progressively worsened S/P IV lasix/Albumin with no help Improving clinically On 2L nasal cannula Continue dialysis per Nephrology S/P placement of Right dialysis catheter Appreciate Nephrology help ESRD ON HD: Patient was offered dialysis in past, but she refused multiple times per Dr Denton S/P Dialysis catheter placement on 12/31/16 Had some bleeding from catheter site:Vascular sx on board. Dialysis newly started on 12/31/16. Appreciate Nephrology input. LOWER EXTREMITY CELLULITIS WITH INFECTED WOUNDS Enterococcus Fecalis/Pseudomonas on wound cultures : Improving Secondary to Bilateral Lower extremity swelling Patient has had B/L Lower ext cellulitis for more than a year, would not allow any one to look at it. Had blister which bursted with yellowish discharge S/P IV Zosyn for 5 Days>>> Discontinued doxycycline on 01/02/17 (5th day) Changed to Ciprofloxacin to cover pseudomonas, Keflex to cover E fecalis per c/ s results on 01/04 ( 3 more days of rx to complete 10 day course till 01/08/17) Norvasc held due to LE edema. Blood Cultures x 2 - negative, Wound culture:pseudomonas + E fecalis METABOLIC ENCEPHALOPATHY: Improving Secondary to ESRD/Cellulitis Continue to monitor ACUTE BLOOD LOSS ANEMIA/ ANEMIA OF CKD Hb down to 7 with bleeding from dialysis catheter site/with suctioning in setting of Chronic anemia with CKD S/P 1 unit of PRBC since admission. Currently Hb:8.6 Continue to monitor HTN: Uncontrolled Continue Metoprolol, Hydralazine, Imdur Continue to monitor DYSPHAGIA: No odynophagia Aspiration precautions Barium Swallow:mild tracheal aspiration with thin liquids Speech therapy consulted. Plan for diet as per their recommendations Received IV Zosyn x 5 days for cellulitis. So should have covered for aspiration (POA). FUNGAL INFECTION B/L Groins, Left breast Continue Clotrimazole cream H/O CVA Per CT scan THROMBOCYTOPENIA No active bleeding Continue to monitor DVT Px: SCDs. Patient has thrombocytopenia. CODE STATUS: DNI/DNR DISPOSITION: Continue monitoring in Tele Needs Rehab placement Barista consulted Patient's : Mr. Tony King at PROCEDURES: Modified barium swallow: 1. Mild tracheal aspiration with thin liquids. No aspiration with the remainder of the consistencies. 2. Full recommendations by speech pathology to follow. Vital Signs: Date Time Temp Pulse Resp B/P Pulse Ox O2 Delivery O2 Flow Rate FiO2 01/06/17 13:23 36.6 85 18 149/59 99 Nasal Cannula 2.0 01/06/17 13:11 36.4 86 128/66 01/06/17 12:45 87 102/57 01/06/17 12:36 88 91/52 01/06/17 12:30 89 74/41 01/06/17 12:15 88 84/52 01/06/17 12:00 86 94/49 01/06/17 11:45 85 90/53 01/06/17 11:30 85 104/58 01/06/17 11:15 85 100/54 01/06/17 11:00 84 89/48 01/06/17 10:45 82 90/45 01/06/17 10:30 82 91/52 01/06/17 10:15 80 88/46 01/06/17 10:00 78 120/64 01/06/17 09:51 36.5 77 119/50 01/06/17 08:00 94 Nasal Cannula 2.0 01/06/17 07:55 36.8 84 16 154/92 95 01/06/17 04:01 98 Nasal Cannula 2.0 01/06/17 03:54 36.6 77 18 139/56 96 Nasal Cannula 2.0 01/06/17 00:00 98 Nasal Cannula 2.0 01/06/17 00:00 36.6 74 18 120/53 98 Nasal Cannula 2.0 01/05/17 20:30 Nasal Cannula 6.0 01/05/17 19:52 36.6 89 20 131/81 97 Nasal Cannula 3.0 Humidified Oxygen 01/05/17 16:39 36.7 89 20 167/89 100 Nasal Cannula 6.0 Humidified Oxygen 01/05/17 16:00 98 Nasal Cannula 6.0 Lab Results: Results Past 24 Hours Test 01/06/17 06:20 Range/Units White Blood Count 7.20 4.8-10.8 K/uL Red Blood Count 3.00 4.2-5.4 M/uL Hemoglobin 8.6 12.0-16.0 g/dL Hematocrit 27.1 37-47 % Mean Corpuscular Volume 90.3 80-100 fL Mean Corpuscular Hemoglobin 28.7 25-34 pg Mean Corpuscular Hemoglobin Concent 31.7 32-36 g/dl RDW Standard Deviation 57.5 36.4-46.3 fL RDW Coefficient of Variation 18.1 11.5-14.5 % Platelet Count 69 130-400 K/uL Mean Platelet Volume 10.0 7.4-10.4 fL Nucleated RBC Absolute Count (auto) 0.11 0-0 K/uL Nucleated Red Blood Cells % 1.5 % Sodium Level 141 136-145 mmol/L Potassium Level 3.6 3.5-5.1 mmol/L Chloride Level 104 98-107 mmol/L Carbon Dioxide Level 26 21-32 mmol/L Anion Gap 11.0 3-11 mmol/L Blood Urea Nitrogen 34 7-18 mg/dl Creatinine 2.60 0.60-1.20 mg/dl Est Creatinine Clear Calc Drug Dose 13.5 ml/min Estimated GFR () 19.0 Estimated GFR (Non- 16.4 BUN/Creatinine Ratio 13.2 10-20 Random Glucose 95 70-99 mg/dl Calcium Level 8.7 8.5-10.1 mg/dl Phosphorus Level 3.2 2.5-4.9 mg/dl
[2017-01-06] MEDS: BOOST VANILLA PUDDING CUP PO SCH (16:47)
[2017-01-07] VITALS (18 sets, daily range): BP systolic 85–141; BP diastolic 38–67; PULSE 68–99; TEMP 36.4–36.9; O2SAT 95–100
[2017-01-07 07:49] LABS: CALCIUM 8.3 mg/dl (8.5-10.1); CREATININE 2.4 mg/dl (0.60-1.20); POTASSIUM 3.9 mmol/L (3.5-5.1)
[2017-01-07] MEDS: CIPROFLOXACIN 250 MG TAB PO SCH ×2 (08:06→22:15)
[2017-01-07] MEDS: METOPROLOL TARTRATE 50 MG TAB PO SCH ×2 (08:07→21:43)
[2017-01-07] MEDS: ISOSORBIDE MONONITRATE 60 MG TABCR PO SCH (08:08)
[2017-01-07] MEDS: CEPHALEXIN MONOHYDRATE 250 MG CAP PO SCH ×2 (08:08→22:15)
[2017-01-07] MEDS: NEPHROCAPS PO SCH (08:08)
[2017-01-07] MEDS: BOOST VANILLA PUDDING CUP PO SCH ×2 (08:09→17:00)
[2017-01-07] MEDS: CALCIUM ACETATE 667MG GELCAP PO SCH ×4 (08:09→17:49)
[2017-01-07] MEDS: CLOTRIMAZOLE 1% CR 15 GM TUBE EXT SCH ×2 (08:09→21:21)
[2017-01-07] MEDS: ASPIRIN 81 MG ECTAB PO SCH (08:10)
[2017-01-07] MEDS: NYSTATIN SUSP 500,000 U/5 ML UDC PO SCH ×4 (08:10→21:43)
[2017-01-07] MEDS: DOCUSATE SODIUM 100 MG CAP PO SCH ×2 (08:10→21:41)
[2017-01-07] MEDS ORDERED: EPOETIN ALFA 10,000 UNITS/ML VIAL IV. SCH (10:00)
--- NOTE | 2017-01-07 10:14 | Progress Note ---
Internal Med Progress Note Date of Service: Jan 07, 2017. Provider Documentation: SUBJECTIVE: Patient is seen and examined at bedside. Has generalized weakness. Planned for HD today. Denies chest pain, SOB, dizziness. Offers no complaints. Seemed to be comfortable lying in chair. OBJECTIVE: Vital Signs-as noted below Exam: General:Alert, Awake, slow to respond, follows commands, thin, fragile Neck: Supple Eyes: EOMI, PERRL Lungs: Normal breath sounds, Dialysis catheter on right side of chest Heart:S1, S2. + Systolic murmur Abdomen:Soft, non tender, non distended, BS present Extremities: B/L LE edema, +dressing Neuro:Slow to respond, Grossly no deficits, moves all extremities Skin:+Yeast infection b/l groin/Left breast Lab data as noted below. ASSESSMENT & PLAN: ACUTE ON CHRONIC DIASTOLIC CHF: Fluid overloaded in setting of CKD-V which has progressively worsened S/P IV lasix/Albumin with no help Improving clinically On 2L nasal cannula: will titrate to room air as able Continue dialysis per Nephrology: Planned for HD today S/P placement of Right dialysis catheter Appreciate Nephrology help ESRD ON HD: Patient was offered dialysis in past, but she refused multiple times per Dr Denton S/P Dialysis catheter placement on 12/31/16 Had some bleeding from catheter site:Vascular sx on board. continue pressure dressing Dialysis newly started on 12/31/16. Appreciate Nephrology input. Planned for HD today and then MWF LOWER EXTREMITY CELLULITIS WITH INFECTED WOUNDS Enterococcus Fecalis/Pseudomonas on wound cultures : Improving Secondary to Bilateral Lower extremity swelling Patient has had B/L Lower ext cellulitis for more than a year, would not allow any one to look at it. Had blister which bursted with yellowish discharge S/P IV Zosyn for 5 Days>>> Discontinued doxycycline on 01/02/17 (5th day) Changed to Ciprofloxacin to cover pseudomonas, Keflex to cover E fecalis per c/ s results on 01/04 ( 2 more days of rx to complete 10 day course till 01/08/17) Norvasc held due to LE edema. Blood Cultures x 2 - negative, Wound culture:pseudomonas + E fecalis METABOLIC ENCEPHALOPATHY: Improving Secondary to ESRD/Cellulitis Continue to monitor ACUTE BLOOD LOSS ANEMIA/ ANEMIA OF CKD Hb down to 7 with bleeding from dialysis catheter site/with suctioning in setting of Chronic anemia with CKD S/P 1 unit of PRBC since admission. Last Hb:8.6 Continue to monitor HTN: controlled Continue Metoprolol, Hydralazine, Imdur Continue to monitor DYSPHAGIA: No odynophagia Aspiration precautions Barium Swallow:mild tracheal aspiration with thin liquids Speech therapy consulted. Plan for diet as per their recommendations Received IV Zosyn x 5 days for cellulitis. So should have covered for aspiration (POA). FUNGAL INFECTION B/L Groins, Left breast Continue Clotrimazole cream H/O CVA Per CT scan THROMBOCYTOPENIA No active bleeding Continue to monitor DVT Px: SCDs. Patient has thrombocytopenia. CODE STATUS: DNI/DNR DISPOSITION: Continue monitoring in Tele Needs Rehab placement Saus[employer] Stringer consulted PT/OT consulted Patient's : Mr. Tony King at PROCEDURES: Modified barium swallow: 1. Mild tracheal aspiration with thin liquids. No aspiration with the remainder of the consistencies. 2. Full recommendations by speech pathology to follow. Vital Signs: Date Time Temp Pulse Resp B/P Pulse Ox O2 Delivery O2 Flow Rate FiO2 01/07/17 08:00 Nasal Cannula 2.0 01/07/17 08:00 36.8 99 16 128/62 98 01/07/17 04:04 High Flow Oxygen 01/07/17 03:59 36.9 81 15 133/60 100 Nasal Cannula 3.0 01/07/17 00:14 High Flow Oxygen 01/06/17 23:20 36.9 83 17 128/56 99 Nasal Cannula 3.0 01/06/17 20:47 High Flow Oxygen 01/06/17 19:05 36.6 94 16 134/66 98 Nasal Cannula 2.0 01/06/17 16:00 94 Nasal Cannula 2.0 01/06/17 15:54 36.4 90 14 128/50 98 Nasal Cannula 2.5 01/06/17 13:23 36.6 85 18 149/59 99 Nasal Cannula 2.0 01/06/17 13:15 94 Nasal Cannula 2.0 01/06/17 13:11 36.4 86 128/66 01/06/17 12:45 87 102/57 01/06/17 12:36 88 91/52 01/06/17 12:30 89 74/41 01/06/17 12:15 88 84/52 01/06/17 12:00 86 94/49 01/06/17 11:45 85 90/53 01/06/17 11:30 85 104/58 01/06/17 11:15 85 100/54 01/06/17 11:00 84 89/48 01/06/17 10:45 82 90/45 01/06/17 10:30 82 91/52 Lab Results: Results Past 24 Hours Test 01/07/17 06:28 Range/Units Sodium Level 140 136-145 mmol/L Potassium Level 3.9 3.5-5.1 mmol/L Chloride Level 104 98-107 mmol/L Carbon Dioxide Level 29 21-32 mmol/L Anion Gap 7.0 3-11 mmol/L Blood Urea Nitrogen 31 7-18 mg/dl Creatinine 2.40 0.60-1.20 mg/dl Est Creatinine Clear Calc Drug Dose 14.3 ml/min Estimated GFR () 20.9 Estimated GFR (Non- 18.1 BUN/Creatinine Ratio 13.0 10-20 Random Glucose 94 70-99 mg/dl Calcium Level 8.3 8.5-10.1 mg/dl
--- NOTE | 2017-01-07 19:19 | Nephrology Progress Note ---
Nephrology Progress Note Date of Service: Jan 07, 2017. Subjective 81 yo female with ckd stage 5, bilateral cellulitis, dysphagia, severe MR, who started on dialysis last week. patient is oob to chair. alert. friend at chairside. edema much improved. not requiring oxygen. for dialysis today. Objective Date Time Temp Pulse Resp B/P Pulse Ox O2 Delivery O2 Flow Rate FiO2 01/07/17 16:00 96 Room Air 01/07/17 15:23 36.4 88 20 117/66 96 Room Air 01/07/17 14:30 36.4 82 141/66 01/07/17 13:15 94 104/67 01/07/17 13:00 92 131/45 01/07/17 12:45 95 118/40 01/07/17 12:30 97 85/45 01/07/17 12:15 97 111/38 01/07/17 12:00 94 110/41 01/07/17 11:45 80 102/46 01/07/17 11:45 36.4 85 16 98 2.0 01/07/17 11:30 85 110/47 01/07/17 11:15 88 109/62 01/07/17 11:00 87 103/55 01/07/17 10:55 88 101/57 01/07/17 10:45 36.4 68 110/49 01/07/17 08:00 Nasal Cannula 2.0 01/07/17 08:00 36.8 99 16 128/62 98 01/07/17 04:04 High Flow Oxygen 01/07/17 03:59 36.9 81 15 133/60 100 Nasal Cannula 3.0 01/07/17 00:14 High Flow Oxygen 01/06/17 23:20 36.9 83 17 128/56 99 Nasal Cannula 3.0 01/06/17 20:47 High Flow Oxygen Physical Exam: General-aaox3 Eyes-no scleral icterus ENT-mmm Neck-supple Lungs-cta Heart-2/6 systolic murmur Abdomen-bs+ s/nt Extremities-no edema, wrapped Neuro-nonfocal Current Inpatient Medications Medications (Trade) Dose Ordered Sig/Cj Route Start Time Stop Time Status Last Admin Dose Admin Acetaminophen (Tylenol Tab) 650 mg Q4H PRN PO 12/30/16 00:30 01/29/17 00:29 Nitroglycerin (Nitrostat Tab) 0.4 mg UD PRN SL 12/30/16 00:30 01/29/17 00:29 Hydromorphone HCl (Dilaudid Inj) 0.5 mg Q6H PRN IV 12/30/16 00:30 01/13/17 00:29 Tramadol HCl (Ultram Tab) 25 mg Q6H PRN PO 12/30/16 00:30 01/29/17 00:29 Ondansetron HCl (Zofran Inj) 4 mg Q6H PRN IV 12/30/16 00:30 01/29/17 00:29 Hydralazine HCl (Apresoline Tab) 50 mg TID PO 12/30/16 09:00 01/29/17 08:59 Future hold 01/07/17 15:53 50 MG Isosorbide Mononitrate (Imdur Ext Rel Tab) 60 mg QAM PO 12/30/16 09:00 01/29/17 08:59 Future hold 01/07/17 08:08 60 MG Metoprolol Tartrate (Lopressor Tab) 12.5 mg BID PO 12/30/16 09:00 01/29/17 08:59 Future hold 01/07/17 08:07 12.5 MG Albuterol/ Ipratropium (Duoneb) 3 ml Q2H PRN INH 12/30/16 00:30 01/29/17 00:29 12/31/16 16:13 3 ML Aspirin (Ecotrin Tab) 81 mg QAM PO 12/30/16 09:00 01/29/17 08:59 01/07/17 08:10 81 MG Calcium Acetate (Phoslo Cap) 1,334 mg TIDM PO 12/30/16 07:30 01/29/17 07:29 01/07/17 17:49 1,334 MG Docusate Sodium (coLACE CAP) 100 mg BID PO 12/30/16 21:00 01/29/17 20:59 01/06/17 20:43 100 MG Clotrimazole (Lotrimin 1% Crm) 1 appln BID EXT 12/30/16 21:00 01/29/17 20:59 01/07/17 08:09 1 APPLN Nystatin (Mycostatin Susp) 5 ml QID PO 12/30/16 21:00 01/29/17 20:59 01/07/17 17:49 5 ML Oxymetazoline HCl (Afrin 0.05% Nasal [place]) 4 sprays Q12H PRN NA 12/31/16 20:00 01/30/17 19:59 Vitamin B Complex/ Vit C/Folic Acid (Nephrocaps) 1 cap QAM PO 01/02/17 09:00 02/01/17 08:59 01/07/17 08:08 1 CAP Ciprofloxacin (Ciprofloxacin Tab) 250 mg Q12 PO 01/04/17 12:00 01/08/17 23:59 01/07/17 08:06 250 MG Cephalexin Monohydrate (Keflex Cap) 250 mg Q12 PO 01/04/17 12:00 01/08/17 23:59 01/07/17 08:08 250 MG Ciprofloxacin (Consult) 1 ea UD PRN N/A 01/04/17 11:30 01/08/17 23:59 Miscellaneous Information 1 ea UD PRN N/A 01/04/17 11:30 01/08/17 23:59 Enteral Nutritional Formula (Boost Pudding) 1 cup BIDM PO 01/06/17 16:45 02/05/17 16:44 01/07/17 17:00 1 CUP Last 24 Hours Test 01/07/17 06:28 01/07/17 16:45 Sodium Level 140 mmol/L Potassium Level 3.9 mmol/L Chloride Level 104 mmol/L Carbon Dioxide Level 29 mmol/L Anion Gap 7.0 mmol/L Blood Urea Nitrogen 31 mg/dl Creatinine 2.40 mg/dl Est Creatinine Clear Calc Drug Dose 14.3 ml/min Estimated GFR () 20.9 Estimated GFR (Non- 18.1 BUN/Creatinine Ratio 13.0 Random Glucose 94 mg/dl Calcium Level 8.3 mg/dl Assessment & Plan CKD stage 5-pt is ESRD. for outpatient dialysis at [facility] unit . for dialysis today and removed 2 liters of fluid. volume status much improved. edema in legs much, much better. no dialysis tomorrow. ok from renal perspective to be discharged once dialysis set up at outpt unit. KEYON: phos of 3.2 and stable on phosphate binders. Anemia of renal failure-giving procrit to try to raise blood counts. hg levels are trending back up and now at 8.6. Access-continues to have oozing of catheter. defer to vascular surgery
[2017-01-08] VITALS: O2SAT 96
[2017-01-08 07:35] VITALS: BP 125/75; PULSE 90; TEMP 36.7; O2SAT 95
[2017-01-08] MEDS: DOCUSATE SODIUM 100 MG CAP PO SCH ×2 (08:21→20:26)
[2017-01-08] MEDS: CLOTRIMAZOLE 1% CR 15 GM TUBE EXT SCH ×2 (08:21→20:25)
[2017-01-08] MEDS: BOOST VANILLA PUDDING CUP PO SCH ×2 (08:21→17:07)
[2017-01-08] MEDS: ASPIRIN 81 MG ECTAB PO SCH (08:21)
[2017-01-08] MEDS: CIPROFLOXACIN 250 MG TAB PO SCH ×2 (08:22→20:29)
[2017-01-08] MEDS: NEPHROCAPS PO SCH (08:22)
[2017-01-08] MEDS: CALCIUM ACETATE 667MG GELCAP PO SCH ×3 (08:22→17:08)
[2017-01-08] MEDS: CEPHALEXIN MONOHYDRATE 250 MG CAP PO SCH ×2 (08:22→20:29)
[2017-01-08] MEDS: ISOSORBIDE MONONITRATE 60 MG TABCR PO SCH (08:22)
[2017-01-08] MEDS: NYSTATIN SUSP 500,000 U/5 ML UDC PO SCH ×4 (08:22→20:26)
[2017-01-08] MEDS: METOPROLOL TARTRATE 50 MG TAB PO SCH ×2 (08:22→20:29)
[2017-01-08 08:32] LABS: BUN/CREATININE RATIO 9.6 (10-20); CALCIUM 8.4 mg/dl (8.5-10.1); CREATININE 2.4 mg/dl (0.60-1.20); POTASSIUM 4.2 mmol/L (3.5-5.1)
[2017-01-08 09:00] LABS: BASO % 0.3 %; BASO ABS # 0.02 K/uL (0-0.2); COMPLETE YES; EOS % 1.8 %; HEMATOCRIT 27.8 % (37-47); IG% 0.3 %; LARGE PLATELETS 1+; LYMPH % 16.5 %; LYMPH ABS # 1.13 K/uL (1.2-3.4); MEAN CORPUSCULAR HEMOGLOBIN 28.8 pg (25-34); MEAN PLATELET VOLUME 9.4 fL (7.4-10.4); NEUT % 74.1 %; PLATELET COUNT 108 K/uL (130-400); POLYCHROMASIA 1+; RED BLOOD COUNT 3.09 M/uL (4.2-5.4); WHITE BLOOD COUNT 6.85 K/uL (4.8-10.8)
[2017-01-08 13:50] VITALS: BP 121/65; PULSE 87; TEMP 36.3; O2SAT 97
[2017-01-08 15:45] VITALS: O2SAT 97
--- NOTE | 2017-01-08 17:21 | Progress Note ---
Internal Med Progress Note Date of Service: Jan 08, 2017. Provider Documentation: SUBJECTIVE: Patient is seen and examined at bedside. States feeling well. Family at bedside. Denies chest pain, SOB, dizziness. Offers no complaints. OBJECTIVE: Vital Signs-as noted below Exam: General:Alert, Awake, slow to respond, follows commands, thin, fragile Neck: Supple Eyes: EOMI, PERRL Lungs: Normal breath sounds, Dialysis catheter on right side of chest Heart:S1, S2. + Systolic murmur Abdomen:Soft, non tender, non distended, BS present Extremities: B/L LE edema, +b/l LE dressing Neuro:Slow to respond, Grossly no deficits, moves all extremities Skin:+Yeast infection b/l groin/Left breast Lab data as noted below. ASSESSMENT & PLAN: ACUTE ON CHRONIC DIASTOLIC CHF: Fluid overloaded in setting of CKD-V which has progressively worsened S/P IV lasix/Albumin with no help Improved clinically with HD Saturating well on RA Continue dialysis per Nephrology S/P placement of Right dialysis catheter Appreciate Nephrology help ESRD ON HD: Patient was offered dialysis in past, but she refused multiple times per Dr Denton S/P Dialysis catheter placement on 12/31/16 Had some bleeding from catheter site:Vascular sx on board. continue pressure dressing Dialysis newly started on 12/31/16. Appreciate Nephrology input. Planned for HD MWF schedule LOWER EXTREMITY CELLULITIS WITH INFECTED WOUNDS Enterococcus Fecalis/Pseudomonas on wound cultures : Improving Secondary to Bilateral Lower extremity swelling Patient has had B/L Lower ext cellulitis for more than a year, would not allow any one to look at it. Had blister which bursted with yellowish discharge S/P IV Zosyn for 5 Days>>> Discontinued doxycycline on 01/02/17 (5th day) Changed to Ciprofloxacin to cover pseudomonas, Keflex to cover E fecalis per c/ s results on 01/04 ( 1 more days of rx to complete 10 day course till 01/08/17) Norvasc held due to LE edema. Blood Cultures x 2 - negative, Wound culture:pseudomonas + E fecalis METABOLIC ENCEPHALOPATHY: Resolved Secondary to ESRD/Cellulitis ACUTE BLOOD LOSS ANEMIA/ ANEMIA OF CKD Secondary to bleeding from dialysis catheter site/In setting of Chronic anemia with CKD S/P 1 unit of PRBC since admission. Last Hb:8.9 Continue to monitor No active bleeding currently HTN: controlled Continue Metoprolol, Hydralazine, Imdur Continue to monitor DYSPHAGIA: No odynophagia Aspiration precautions Barium Swallow:mild tracheal aspiration with thin liquids Diet per Speech therapy recommendations Received IV Zosyn x 5 days for cellulitis. So should have covered for aspiration (POA). FUNGAL INFECTION B/L Groins, Left breast Continue Clotrimazole cream H/O CVA Per CT scan THROMBOCYTOPENIA No active bleeding Improving Continue to monitor DVT Px: SCDs. Patient has thrombocytopenia. CODE STATUS: DNI/DNR DISPOSITION: Plan to discharge to [facility] when bed available [employer] consulted PT/OT consulted Patient's : Mr. Tony King at PROCEDURES: Modified barium swallow: 1. Mild tracheal aspiration with thin liquids. No aspiration with the remainder of the consistencies. 2. Full recommendations by speech pathology to follow. Vital Signs: Date Time Temp Pulse Resp B/P Pulse Ox O2 Delivery O2 Flow Rate FiO2 01/08/17 13:50 36.3 87 17 121/65 97 Room Air 01/08/17 08:00 Room Air 01/08/17 07:35 36.7 90 16 125/75 95 Room Air 01/08/17 00:00 96 Room Air 01/07/17 23:49 36.6 84 18 106/53 95 Room Air Lab Results: Results Past 24 Hours Test 01/08/17 07:24 Range/Units White Blood Count 6.85 4.8-10.8 K/uL Red Blood Count 3.09 4.2-5.4 M/uL Hemoglobin 8.9 12.0-16.0 g/dL Hematocrit 27.8 37-47 % Mean Corpuscular Volume 90.0 80-100 fL Mean Corpuscular Hemoglobin 28.8 25-34 pg Mean Corpuscular Hemoglobin Concent 32.0 32-36 g/dl Platelet Count 108 130-400 K/uL Mean Platelet Volume 9.4 7.4-10.4 fL Neutrophils (%) (Auto) 74.1 % Lymphocytes (%) (Auto) 16.5 % Monocytes (%) (Auto) 7.0 % Eosinophils (%) (Auto) 1.8 % Basophils (%) (Auto) 0.3 % Neutrophils # (Auto) 5.08 1.4-6.5 K/uL Lymphocytes # (Auto) 1.13 1.2-3.4 K/uL Monocytes # (Auto) 0.48 0.11-0.59 K/uL Eosinophils # (Auto) 0.12 0-0.5 K/uL Basophils # (Auto) 0.02 0-0.2 K/uL RDW Standard Deviation 55.0 36.4-46.3 fL RDW Coefficient of Variation 19.1 11.5-14.5 % Immature Granulocyte % (Auto) 0.3 % Immature Granulocyte # (Auto) 0.02 0.00-0.02 K/uL Nucleated RBC Absolute Count (auto) 0.05 0-0 K/uL Nucleated Red Blood Cells % 0.8 % Large Platelets 1+ Polychromasia 1+ Sodium Level 141 136-145 mmol/L Potassium Level 4.2 3.5-5.1 mmol/L Chloride Level 106 98-107 mmol/L Carbon Dioxide Level 26 21-32 mmol/L Anion Gap 9.0 3-11 mmol/L Blood Urea Nitrogen 23 7-18 mg/dl Creatinine 2.40 0.60-1.20 mg/dl Est Creatinine Clear Calc Drug Dose 14.0 ml/min Estimated GFR () 20.9 Estimated GFR (Non- 18.1 BUN/Creatinine Ratio 9.6 10-20 Random Glucose 91 70-99 mg/dl Calcium Level 8.4 8.5-10.1 mg/dl
[2017-01-08 20:27] VITALS: BP 139/70; PULSE 90
[2017-01-09] VITALS (20 sets, daily range): BP systolic 71–135; BP diastolic 40–69; PULSE 78–92; TEMP 36.6–37; O2SAT 90–97
[2017-01-09] MEDS: ASPIRIN 81 MG ECTAB PO SCH (08:08)
[2017-01-09] MEDS: CLOTRIMAZOLE 1% CR 15 GM TUBE EXT SCH (08:08)
[2017-01-09] MEDS: DOCUSATE SODIUM 100 MG CAP PO SCH (08:08)
[2017-01-09] MEDS: BOOST VANILLA PUDDING CUP PO SCH (08:08)
[2017-01-09] MEDS: METOPROLOL TARTRATE 50 MG TAB PO SCH (08:09)
[2017-01-09] MEDS: ISOSORBIDE MONONITRATE 60 MG TABCR PO SCH (08:09)
[2017-01-09] MEDS: NYSTATIN SUSP 500,000 U/5 ML UDC PO SCH ×2 (08:09→13:11)
[2017-01-09] MEDS: CALCIUM ACETATE 667MG GELCAP PO SCH ×2 (08:09→13:11)
[2017-01-09] MEDS: NEPHROCAPS PO SCH (08:09)
[2017-01-09 08:38] LABS: BUN/CREATININE RATIO 10.4 (10-20); CALCIUM 8.4 mg/dl (8.5-10.1); CREATININE 3.4 mg/dl (0.60-1.20); POTASSIUM 4.1 mmol/L (3.5-5.1)
[2017-01-09] MEDS ORDERED: EPOETIN ALFA 10,000 UNITS/ML VIAL IV. ONE (09:00)
--- NOTE | 2017-01-09 10:13 | Dialysis Progress Note ---
Nephrology Dialysis Note Date of Service: Jan 09, 2017. Subjective 81 yo female with ckd stage 5, bilateral cellulitis, dysphagia, severe MR, who started on dialysis last week. seen on dialysis today. removed 20 kilos of fluid since admission. pts mental status much improved. appetite is improving. was having slow oozing of blood from catheter. Objective Date Time Temp Pulse Resp B/P Pulse Ox O2 Delivery O2 Flow Rate FiO2 01/09/17 09:45 89 71/45 01/09/17 09:30 92 79/46 01/09/17 09:15 87 93/50 01/09/17 09:00 86 123/62 01/09/17 08:52 85 123/62 01/09/17 08:00 Room Air 01/09/17 07:46 36.7 88 14 119/69 93 Room Air 01/09/17 00:34 36.7 84 18 122/65 90 Room Air 01/09/17 00:00 97 Room Air 01/08/17 20:27 90 139/70 01/08/17 15:45 97 Room Air 01/08/17 13:50 36.3 87 17 121/65 97 Room Air Physical Exam: General-aaox3 Eyes-no scleral icterus ENT-mmm Neck-supple Lungs-clear Heart-2/6 systolic murmur Abdomen-bs+ s/nt Extremities-no edema, wrapped ower extremities, Neuro-nonfocal Current Inpatient Medications Medications (Trade) Dose Ordered Sig/Cj Route Start Time Stop Time Status Last Admin Dose Admin Acetaminophen (Tylenol Tab) 650 mg Q4H PRN PO 12/30/16 00:30 01/29/17 00:29 Nitroglycerin (Nitrostat Tab) 0.4 mg UD PRN SL 12/30/16 00:30 01/29/17 00:29 Hydromorphone HCl (Dilaudid Inj) 0.5 mg Q6H PRN IV 12/30/16 00:30 01/13/17 00:29 Tramadol HCl (Ultram Tab) 25 mg Q6H PRN PO 12/30/16 00:30 01/29/17 00:29 Ondansetron HCl (Zofran Inj) 4 mg Q6H PRN IV 12/30/16 00:30 01/29/17 00:29 Hydralazine HCl (Apresoline Tab) 50 mg TID PO 12/30/16 09:00 01/29/17 08:59 Future hold 01/09/17 08:08 50 MG Isosorbide Mononitrate (Imdur Ext Rel Tab) 60 mg QAM PO 12/30/16 09:00 01/29/17 08:59 Future hold 01/09/17 08:09 60 MG Metoprolol Tartrate (Lopressor Tab) 12.5 mg BID PO 12/30/16 09:00 01/29/17 08:59 Future hold 01/09/17 08:09 12.5 MG Albuterol/ Ipratropium (Duoneb) 3 ml Q2H PRN INH 12/30/16 00:30 01/29/17 00:29 12/31/16 16:13 3 ML Aspirin (Ecotrin Tab) 81 mg QAM PO 12/30/16 09:00 01/29/17 08:59 01/09/17 08:08 81 MG Calcium Acetate (Phoslo Cap) 1,334 mg TIDM PO 12/30/16 07:30 01/29/17 07:29 01/09/17 08:09 1,334 MG Docusate Sodium (coLACE CAP) 100 mg BID PO 12/30/16 21:00 01/29/17 20:59 01/09/17 08:08 100 MG Clotrimazole (Lotrimin 1% Crm) 1 appln BID EXT 12/30/16 21:00 01/29/17 20:59 01/09/17 08:08 1 APPLN Nystatin (Mycostatin Susp) 5 ml QID PO 12/30/16 21:00 01/29/17 20:59 01/09/17 08:09 5 ML Oxymetazoline HCl (Afrin 0.05% Nasal [place]) 4 sprays Q12H PRN NA 12/31/16 20:00 01/30/17 19:59 Vitamin B Complex/ Vit C/Folic Acid (Nephrocaps) 1 cap QAM PO 01/02/17 09:00 02/01/17 08:59 01/09/17 08:09 1 CAP Enteral Nutritional Formula (Boost Pudding) 1 cup BIDM PO 01/06/17 16:45 02/05/17 16:44 01/09/17 08:08 1 CUP Last 24 Hours Test 01/09/17 07:48 Sodium Level 142 mmol/L Potassium Level 4.1 mmol/L Chloride Level 107 mmol/L Carbon Dioxide Level 25 mmol/L Anion Gap 10.0 mmol/L Blood Urea Nitrogen 35 mg/dl Creatinine 3.40 mg/dl Est Creatinine Clear Calc Drug Dose 13.5 ml/min Estimated GFR () 13.7 Estimated GFR (Non- 11.9 BUN/Creatinine Ratio 10.4 Random Glucose 90 mg/dl Calcium Level 8.4 mg/dl Assessment & Plan CKD stage 5-pt is ESRD. seen on dialysis. not tolerating any fluid removal. appear to have appropriately removed about 20 kilos of fluid and now at new baseline. volume status much improved. removing about 500cc today. KEYON: phos of 3.2 and stable on phosphate binders. Anemia of renal failure-on procrit and hg levels continue to trend up. now up to 8.9. for dialysis at [facility] m-w-, will call dialysis unit and give orders.
--- NOTE | 2017-01-09 11:54 | Progress Note ---
Internal Med Progress Note Date of Service: Jan 09, 2017. Provider Documentation: SUBJECTIVE: Patient is seen and examined at bedside while getting HD today. She was hypotensive during dialysis but asymptomatic. Denies chest pain, SOB, dizziness. Offers no complaints. OBJECTIVE: Vital Signs-as noted below Exam: General:Alert, Awake, slow to respond, follows commands, thin, fragile Neck: Supple Eyes: EOMI, PERRL Lungs: Normal breath sounds, Dialysis catheter on right side of chest Heart:S1, S2. + Systolic murmur Abdomen:Soft, non tender, non distended, BS present Extremities: B/L LE edema, +b/l LE dressing Neuro:Slow to respond, Grossly no deficits, moves all extremities Skin:+Yeast infection b/l groin/Left breast Lab data as noted below. ASSESSMENT & PLAN: ACUTE ON CHRONIC DIASTOLIC CHF: Fluid overloaded in setting of CKD-V which has progressively worsened S/P IV lasix/Albumin with no help Improved clinically with HD Saturating well on RA Continue dialysis per Nephrology S/P placement of Right dialysis catheter Appreciate Nephrology help Had dialysis today ESRD ON HD: Patient was offered dialysis in past, but she refused multiple times per Dr Denton S/P Dialysis catheter placement on 12/31/16 Had some bleeding from catheter site:Vascular sx on board. continue pressure dressing Dialysis newly started on 12/31/16. Appreciate Nephrology input. Currently HD MWF schedule LOWER EXTREMITY CELLULITIS WITH INFECTED WOUNDS Enterococcus Fecalis/Pseudomonas on wound cultures : Improving Secondary to Bilateral Lower extremity swelling Patient has had B/L Lower ext cellulitis for more than a year, would not allow any one to look at it. Had blister which bursted with yellowish discharge S/P IV Zosyn for 5 Days>>> Discontinued doxycycline on 01/02/17 (5th day) Changed to Ciprofloxacin to cover pseudomonas, Keflex to cover E fecalis per c/ s results on 01/04: completed 10 day course on 01/08/17 Norvasc held due to LE edema. Blood Cultures x 2 - negative, Wound culture:pseudomonas + E fecalis METABOLIC ENCEPHALOPATHY: Resolved Secondary to ESRD/Cellulitis ACUTE BLOOD LOSS ANEMIA/ ANEMIA OF CKD Secondary to bleeding from dialysis catheter site/In setting of Chronic anemia with CKD S/P 1 unit of PRBC since admission. Last Hb:8.9 Continue to monitor No active bleeding currently HTN: Currently hypotensive Continue Metoprolol, Hydralazine, Imdur Will decrease Hydralazine to 25 mg TID from 50mg TID secondary to low BP Norvasc on hold secondary to leg edema Metoprolol decreased to 12.5mg BID FROM 50MG bid DYSPHAGIA: No odynophagia Aspiration precautions Barium Swallow:mild tracheal aspiration with thin liquids Diet per Speech therapy recommendations Received IV Zosyn x 5 days for cellulitis. So should have covered for aspiration (POA). FUNGAL INFECTION B/L Groins, Left breast Continue Clotrimazole cream H/O CVA Per CT scan THROMBOCYTOPENIA No active bleeding Improved Continue to monitor DVT Px: SCDs. Patient has thrombocytopenia. CODE STATUS: DNI/DNR DISPOSITION: Plan to discharge to [facility] when bed available Clam Shucker consulted PT/OT consulted Follow up with in 1 week after getting discharged from [facility] Follow up for dialysis (MWF) as scheduled Your Hydralazine is decreased from 50mg to 25 mg TID; Metoprolol decreased to 12.5mg BID FROM 50MG bid and Norvasc is held secondary to hypotension Follow up with your physician at [facility] for Blood pressure medications adjustment as needed Continue Wound care to B/L lower extremities at [facility] Family contact Info: Patient's : Mr. Tony King at PROCEDURES: Modified barium swallow: 1. Mild tracheal aspiration with thin liquids. No aspiration with the remainder of the consistencies. 2. Full recommendations by speech pathology to follow. Vital Signs: Date Time Temp Pulse Resp B/P Pulse Ox O2 Delivery O2 Flow Rate FiO2 01/09/17 11:30 78 88/44 01/09/17 11:15 78 94/44 01/09/17 11:00 80 82/40 01/09/17 10:45 81 90/44 01/09/17 10:30 83 92/49 01/09/17 10:15 84 90/46 01/09/17 10:00 88 93/48 01/09/17 09:45 89 71/45 01/09/17 09:30 92 79/46 01/09/17 09:15 87 93/50 01/09/17 09:00 86 123/62 01/09/17 08:52 85 123/62 01/09/17 08:00 Room Air 01/09/17 07:46 36.7 88 14 119/69 93 Room Air 01/09/17 00:34 36.7 84 18 122/65 90 Room Air 01/09/17 00:00 97 Room Air 01/08/17 20:27 90 139/70 01/08/17 15:45 97 Room Air 01/08/17 13:50 36.3 87 17 121/65 97 Room Air Lab Results: Results Past 24 Hours Test 01/09/17 07:48 Range/Units Sodium Level 142 136-145 mmol/L Potassium Level 4.1 3.5-5.1 mmol/L Chloride Level 107 98-107 mmol/L Carbon Dioxide Level 25 21-32 mmol/L Anion Gap 10.0 3-11 mmol/L Blood Urea Nitrogen 35 7-18 mg/dl Creatinine 3.40 0.60-1.20 mg/dl Est Creatinine Clear Calc Drug Dose 13.5 ml/min Estimated GFR () 13.7 Estimated GFR (Non- 11.9 BUN/Creatinine Ratio 10.4 10-20 Random Glucose 90 70-99 mg/dl Calcium Level 8.4 8.5-10.1 mg/dl
[2017-01-09] MEDS ORDERED: APR50 PO (12:22)
[2017-01-09] MEDS ORDERED: CLC100 PO (12:22)
[2017-01-09] MEDS ORDERED: METO50TA17 PO (12:22)
--- NOTE | 2017-01-09 12:29 | Discharge Summary ---
Discharge Summary Date of Service Jan 09, 2017. Discharge Summary Admission Date: Dec 29, 2016 at 23:34 Discharge Date: Jan 09, 2017 Discharge Disposition: [facility] facility Principal Diagnosis: ACUTE ON CHRONIC DIASTOLIC CHF, B/L LE Cellulitis, Metabolic Encephalopathy Procedures: PROCEDURES: Modified barium swallow: 1. Mild tracheal aspiration with thin liquids. No aspiration with the remainder of the consistencies. 2. Full recommendations by speech pathology to follow. CT Head: No acute intracranial findings Venous Doppler: There is no sonographic evidence of deep venous thrombosis identified in the right or left lower extremity. Renal USD: Atrophy of the kidneys. No evidence for hydronephrosis. CXR: Worsening congestive failure/fluid overload. Left basal airspace opacity, likely representing compressive atelectasis HD catheter placement to R IJV Consultations: Nephrology, Vascular surgery Pending Studies/Follow-Up: Follow up with in 1 week after getting discharged from [facility] Follow up for dialysis (MWF) as scheduled Your Hydralazine is decreased from 50mg to 25 mg TID; Metoprolol decreased to 12.5mg BID from 50MG BID and Norvasc to be HELD for now Lasix was discontinued Follow up with your physician at [facility] for Blood pressure medications adjustment as needed Continue Wound care to B/L lower extremities at [facility] Medication Reconciliation New Medications: Docusate Sodium (Docusate Sodium) 100 Mg Cap 100 MG PO BID PRN for CONSTIPATION for 10 Days, #10 CAP Changed Medications: Hydralazine HCl (Hydralazine HCl) 50 Mg Tab 25 MG PO TID for 10 Days, #30 TAB 2 Refills (Changed from: 50 MG; 90) Metoprolol Tartrate (Metoprolol Tartrate) 50 Mg Tab 12.5 MG PO BID for 30 Days, #15 TAB 2 Refills (Changed from: 50 MG; 60) Continued Medications: Amlodipine Besylate (Amlodipine Besylate) 5 Mg Tab 5 MG PO QAM, #30 TAB 2 Refills Ascorbic Acid (Vitamin C) 100 Mg Chw 100 MG PO DAILY Ascorbic Acid (Vitamin C 500 mg) 1 Chw Chw 500 MG PO DAILY take with ferrous sulfate in between a meal Aspirin (Aspirin Ec) 81 Mg Tab 81 MG PO 4XWK Ferrous Sulfate (Ferrous Sulfate) 325 Mg Tab 325 MG PO DAILY take with vitain c 500mg in between a meal Isosorbide Mononitrate Ext Rel (Imdur Ext Rel) 60 Mg Ertab 60 MG PO QAM, TAB Multivitamins/Minerals (Mvi With Minerals) Tab 1 TAB PO DAILY, TAB Nitroglycerin (Nitrostat) 0.4 Mg Tab 0.4 MG UT UD PRN for Chest Pain, BTL Discontinued Medications: Furosemide (Lasix) 40 Mg Tab 40 MG PO DAILY, TAB Admission Information HPI (per Admitting provider): CHIEF COMPLAINT: Bilateral leg swelling and infection. HISTORY OF PRESENT ILLNESS: Medical history significant for ESRD (baseline crea 4), hypertension, chronic anemia (baseline hemoglobin of 8-9), chronic diastolic heart failure as per records (EF of 65-70%, 2016). hx SVT as per records. Recent confinement May 2016 for hypertensive urgency. As per records, the last few weeks increasing weight gain of 20 pounds of fluid, worsening leg swelling. On a recent outpx [facility] Nephrology visit about 2 weeks ago, dialysis recommended. The patient was unsure about dialysis; concerns about procedure that it might hurt. Progressive donald leg swelling, weight gain over the next few weeks. some sob. belly bloated, no abd pain. Patient also noted to be a little slow w/ her speech. About a week ago, increased leg swelling noted w/ blister appearance and subsequent rupture. LE wounds noted with foul-smelling drainage. No fever, no chills. Patient urged by family to consult ER. At the Emergency Room, the patient received Unasyn for leg wound infection. Physical Exam (per Admitting): PHYSICAL EXAMINATION: VITAL SIGNS: Blood pressure was noted to be 134/65, pulse rate 58, RR 18, temperature 37 O2 sats 96% on room air. SKIN: Noted to be sallow. eating crackers SKIN : Pallor. HEENT : pale palpebral conjunctivae. Dry mucosa. NECK: JVD not assessed, supple. CHEST: Decreased effort. HEART: Bradycardic. ABDOMEN: Some distention, non-tender. EXTREMITIES: Bilateral lower extremity edema, yellow crusty lesions on the legs with foul-smelling drainage. NEUROLOGIC: No gross focality except for some slowed speech and response to questions Hospital Course ACUTE ON CHRONIC DIASTOLIC CHF: Fluid overloaded in setting of CKD-V which has progressively worsened S/P IV lasix/Albumin with no help Improved clinically with HD Saturating well on RA Continue dialysis per Nephrology S/P placement of Right dialysis catheter Appreciate Nephrology help Had dialysis today ESRD ON HD: Patient was offered dialysis in past, but she refused multiple times per Dr Denton S/P Dialysis catheter placement on 12/31/16 Had some bleeding from catheter site:Vascular sx on board. continue pressure dressing Dialysis newly started on 12/31/16. Appreciate Nephrology input. Currently HD MWF schedule LOWER EXTREMITY CELLULITIS WITH INFECTED WOUNDS Enterococcus Fecalis/Pseudomonas on wound cultures : Improving Secondary to Bilateral Lower extremity swelling Patient has had B/L Lower ext cellulitis for more than a year, would not allow any one to look at it. Had blister which bursted with yellowish discharge S/P IV Zosyn for 5 Days>>> Discontinued doxycycline on 01/02/17 (5th day) Changed to Ciprofloxacin to cover pseudomonas, Keflex to cover E fecalis per c/ s results on 01/04: completed 10 day course on 01/08/17 Norvasc held due to LE edema. Blood Cultures x 2 - negative, Wound culture:pseudomonas + E fecalis METABOLIC ENCEPHALOPATHY: Resolved Secondary to ESRD/Cellulitis ACUTE BLOOD LOSS ANEMIA/ ANEMIA OF CKD Secondary to bleeding from dialysis catheter site/In setting of Chronic anemia with CKD S/P 1 unit of PRBC since admission. Last Hb:8.9 Continue to monitor No active bleeding currently HTN: Currently hypotensive Continue Metoprolol, Hydralazine, Imdur Will decrease Hydralazine to 25 mg TID from 50mg TID secondary to low BP Norvasc on hold secondary to leg edema Metoprolol decreased to 12.5mg BID FROM 50MG bid DYSPHAGIA: No odynophagia Aspiration precautions Barium Swallow:mild tracheal aspiration with thin liquids Diet per Speech therapy recommendations Received IV Zosyn x 5 days for cellulitis. So should have covered for aspiration (POA). FUNGAL INFECTION B/L Groins, Left breast Continue Clotrimazole cream H/O CVA Per CT scan THROMBOCYTOPENIA No active bleeding Improved Continue to monitor DVT Px: SCDs. Patient has thrombocytopenia. CODE STATUS: DNI/DNR DISPOSITION: Plan to discharge to [facility] when bed available Logging Rafter Laborer consulted PT/OT consulted Follow up with in 1 week after getting discharged from [facility] Follow up for dialysis (MWF) as scheduled Your Hydralazine is decreased from 50mg to 25 mg TID; Metoprolol decreased to 12.5mg BID FROM 50MG bid and Norvasc is held secondary to hypotension Follow up with your physician at [facility] for Blood pressure medications adjustment as needed Continue Wound care to B/L lower extremities at [facility] Family contact Info: Patient's : Mr. Tony King at PROCEDURES: Modified barium swallow: 1. Mild tracheal aspiration with thin liquids. No aspiration with the remainder of the consistencies. 2. Full recommendations by speech pathology to follow. Total time spent on discharge = 40 minutes This includes examination of the patient, discharge planning, medication reconciliation, and communication with other providers. Discharge Instructions Discharge Instructions Date of Service Jan 09, 2017. Admission Reason for Admission: Arf, Hyperkalemia Discharge Discharge Diagnosis / Problem: ACUTE ON CHRONIC DIASTOLIC CHF, B/L LE Cellulitis, Metabolic Encephalopathy Discharge Goals Goal(s): Decrease discomfort, Improve function Activity Recommendations Activity Limitations: resume your previous activity Exercise/Sports Limitations: as tolerated . Instructions / Follow-Up Instructions / Follow-Up Follow up with in 1 week after getting discharged from [facility] Follow up for dialysis ([facility]) as scheduled Your Hydralazine is decreased from 50mg to 25 mg TID; Metoprolol decreased to 12.5mg BID from 50MG BID and Norvasc to be HELD for now Lasix was discontinued Follow up with your physician at [facility] for Blood pressure medications adjustment as needed Continue Wound care to B/L lower extremities at [facility] Call your Primary Care doctor if any of the following symptoms or problems start or get worse: * Shortness of breath or difficulty breathing * Wake up at night short of breath * Chest pain * Cough * Swelling of your hands, feet, or legs * More fatigued or tired with your normal activity * Palpitations - sudden fast heart beats WEIGHT * Weigh yourself every morning after using the bathroom. * Use the same scale. * Wear the same amount of clothing. * Write your weight down on a chart. * Call your Primary Care doctor if you gain more than 2-3 pounds in 1-2 days. MEDICATIONS * Use this discharge instruction sheet for medication instructions. * Take your medications at the time your doctor ordered. * Do not skip a dose of your medicines. * If you miss a dose of medicine, take it as soon as possible, but DO NOT DOUBLE A DOSE. * Read your medicine information when you get home. * Know all of the side effects of your medicine. If in doubt, ask your pharmacist * Call your Primary Care doctor's office if you have any side effects. * Be sure all of your doctors know what medicine and herbs you take (including cold, flu, and herbal medicine). Take the following with you to your follow-up doctor appointments: * Weight Chart * Medication List * List of questions Do not drink excessive alcohol, beer or wine. Current Hospital Diet Patient's current hospital diet: Renal Diet Discharge Diet Recommended Diet: Renal Diet Diet Texture: Pureed (blended smooth) Liquid Consistency: [place] Thick Procedures Procedures Performed: Perm Cath Insertion Right internal Jugular Vein Ultrasound Localization of Right Internal Jugular Vein Fluoroscopy for Positioning Pending Studies Studies pending at discharge: no Medical Emergencies . Who to Call and When: Call 911 or go to the Emergency Room if: * If at any time you feel your situation is an emergency * You have tightness or pain in your chest that does not go away with rest or Nitroglycerin * You are very short of breath even with rest . Non-Emergent Contact Non-Emergency issues call your: Primary Care Provider, Beef Grinder Call Non-Emergent contact if: you have a fever, your pain is not controlled, your pain is worsening, your pain is unusual for you, you have any medication questions If your symptoms reoccur or worsen . . "Provider Documentation" section prepared by Rick Baxter. VTE Core Measure Inpt VTE Proph given/why not?: SCD's
[2017-02-06] MEDS ORDERED: DOXY100C2 PO (08:35)
[2017-02-06] MEDS ORDERED: DOXY100C76 PO (09:07)
== END 2017-01-09 15:32 | DRG 291 ==
LOC: ENRESERVTM → ENRESERVDT → C.EDB 20:59 → C.2T 23:34 → C.2E 12-31 12:48 → C.MS4W 01-07 11:51
PROVIDERS: ADMIT Internal Medicine; ATTEND Internal Medicine
PROC: 05HM33Z Insertion of Infusion Device into Right Internal Jugular Vein, Percutaneous Approach (ICD-10-PCS; principal; 2017-01-02)
DX: I50.33 Acute on chronic diastolic (congestive) heart failure (principal); N18.6 End stage renal disease; I13.2 Hypertensive heart and chronic kidney disease with heart failure and with stage 5 chronic kidney disease, or end stage renal disease; G93.41 Metabolic encephalopathy; L03.115 Cellulitis of right lower limb; L03.116 Cellulitis of left lower limb; E87.2 Acidosis; B35.6 Tinea cruris; B36.9 Superficial mycosis, unspecified; R13.10 Dysphagia, unspecified; E87.5 Hyperkalemia; D63.1 Anemia in chronic kidney disease; D69.6 Thrombocytopenia, unspecified; I34.0 Nonrheumatic mitral (valve) insufficiency; Z79.82 Long term (current) use of aspirin; Z79.899 Other long term (current) drug therapy

== ENCOUNTER → 2017-03-03 | Outpatient (CLI) | payer OTHER ==
[~2017-03-03] MED LIST changes: -CFT250 PO; -CHOL100010 PO; +CLC100 PO; +DOXY100C76 PO; -FERR1TAB13 PO; +FERR325T5 PO; -ISM20 PO; +ISOS60TA25 PO; -NRV5 PO
--- NOTE | 2017-03-03 18:54 | DIAGNOSTIC IMAGING REPORT ---
PELVIS WITHOUT CONTRAST (MRI) HISTORY: SACRUM NON HEALING WOUND TECHNIQUE: Multiplanar multisequence MRI of the sacrum was performed without the use of intravenous contrast. COMPARISON STUDY: None. FINDINGS: There is a 4.1 x 2.5 cm sacral decubitus ulcer. The ulcer is at the level of the distal sacrum near the sacrococcygeal junction. The ulceration is close proximity to the posterior sacral cortex. However, the fluid is approximate 1.5 mm from the sacral cortex. The sacral cortex appears intact. No abnormal signal intensity on the T1 sequences. There is increased signal on the STIR sequences at the distal sacrum and proximal coccyx. There is mild presacral edema. There is subcutaneous edema within the gluteal locations. 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 IMPRESSION: A 4.1 x 2.5 cm sacral decubitus ulcer. The ulcer is in close proximity to the posterior cortex of the sacrum but does not clearly extend to the sacrum. There is no definite destruction of the sacrum to suggest osteomyelitis at this time. There is increased T2 signal within the marrow of the distal sacrum and proximal coccyx suggestive of an osteitis. Electronically signed by: Parish Figueroa M.D. 03/03/2017 6:53 PM Dictated Date/Time: 03/03/2017 6:47 PM
== END | disposition home or self-care (01) ==
LOC: C.MRI 17:26
PROVIDERS: ATTEND Physician Assistant
DX: L89.159 Pressure ulcer of sacral region, unspecified stage (principal)

== ENCOUNTER 2017-10-30 14:13 | Observation (INO) | payer OTHER ==
[~2017-10-30] VITALS: Ht 152.4 cm; Wt 40.0 kg
[~2017-10-30 14:13] MED LIST changes: -DOXY100C76 PO
--- NOTE | 2017-10-30 14:25 | EMERGENCY ROOM VISIT NOTE ---
History Report prepared by Gloria: Ede Mack Under the Supervision of: Dr. Bowen Lopez D.O. First contact with patient: 14:16 Stated Complaint: SHORTNESS OF BREATH History of Present Illness The patient is an 82 year old female who presents to the Emergency Room with complaints of persistent shortness of breath starting this morning which has improved with oxygen. The patient states that she was at dialysis this morning and had this shortness of breath, and she had 1.6 liters off of her today. She additionally was being treated for pneumonia with antibiotic pills, though she was unable to take it one day. The patient is not on oxygen at home. The patient states that she currently has an unproductive cough. She denies any chest pain, leg swelling, and fever. Source of History: patient Onset: this morning Position: other (global) Quality: other (shortness of breath) Timing: other (persistent ) Associated Symptoms: + cough, No fevers, No chest pain Review of Systems See HPI for pertinent positives & negatives. A total of 10 systems reviewed and were otherwise negative. Past Medical & Surgical Medical Problems: (1) ARF (acute renal failure) (2) CKD (chronic kidney disease), stage V (3) Diastolic CHF (4) HTN (hypertension) (5) Hyperkalemia (6) Mitral regurgitation Family History Heart disease Social History Smoking Status: Never Smoker Alcohol Use: occasionally Drug Use: none Marital Status: Housing Status: lives with family Occupation Status: retired Current/Historical Medications Scheduled Ascorbic Acid (Vitamin C), 100 MG PO DAILY Aspirin (Aspirin Ec), 81 MG PO DAILY Hydralazine HCl (Hydralazine HCl), 25 MG PO TID Isosorbide Mononitrate Ext Rel (Imdur Ext Rel), 60 MG PO QAM Metoprolol Tartrate (Metoprolol Tartrate), 12.5 MG PO BID Multivitamins/Minerals (Mvi With Minerals), 1 TAB PO DAILY Scheduled PRN Docusate Sodium (Docusate Sodium), 100 MG PO BID PRN for CONSTIPATION Nitroglycerin (Nitrostat), 0.4 MG UT UD PRN for Chest Pain Allergies Coded Allergies: No Known Allergies (Unverified , 10/30/17) Physical Exam Vital Signs Date Time Temp Pulse Resp B/P (MAP) Pulse Ox O2 Delivery O2 Flow Rate FiO2 10/30/17 16:30 80 25 156/62 96 Room Air 10/30/17 16:05 86 20 156/57 98 Room Air 10/30/17 15:17 82 20 142/97 Room Air 10/30/17 15:00 78 22 152/79 97 Room Air 10/30/17 14:41 98 Room Air 10/30/17 14:38 99 Room Air 10/30/17 14:38 99 Room Air 10/30/17 14:33 81 10/30/17 14:15 100 Room Air 10/30/17 14:15 36.5 80 20 137/69 100 Room Air Physical Exam GENERAL: Patient is awake, alert, and in no acute distress. Patient is resting comfortably and showing no signs of anxiety EYES: The conjunctivae are clear. The pupils are round and reactive. EARS, NOSE, MOUTH AND THROAT: The nose is without any evidence of any deformity. Mucous membranes are moist tongue is midline NECK: The neck is nontender and supple. RESPIRATORY: Lung sounds were diminished throughout. Rales at both bases. No tachypnea or conversational dyspnea. CARDIOVASCULAR: Regular rate and rhythm noted there no murmurs rubs or gallops normal S1 normal S2 GASTROINTESTINAL: The abdomen is soft. Bowel sounds are present in all quadrants. Abdomen is nontender MUSCULOSKELETAL/EXTREMITIES: There is no evidence of gross deformity full range of motion is noted in the hips and shoulders SKIN: There is no obvious evidence of any rash. There are no petechiae, pallor or cyanosis noted. NEUROLOGIC: Patient is awake alert and oriented x3 Medical Decision & Procedures ER Provider Diagnostic Interpretation: Radiology results as stated below per my review and radiologist interpretation: SINGLE VIEW CHEST CLINICAL HISTORY: Dyspnea. FINDINGS: An AP, portable, upright chest radiograph is compared to study dated 12/31/2016. The examination is degraded by portable technique and patient rotation. A right sided central venous catheter is in place. The heart is top normal for projection and there is atherosclerotic calcification of the thoracic aorta. The pulmonary vasculature is noncongested. Small pleural effusions are noted and there is bibasilar atelectasis. No pneumothorax is seen. The skeletal structures are osteopenic. There are healed right-sided rib fractures. IMPRESSION: Small pleural effusions with bibasilar atelectasis. Electronically signed by: Waylon Fam M.D. 10/30/2017 2:53 PM Dictated Date/Time: 10/30/2017 2:52 PM Laboratory Results Test 10/30/17 14:35 Prothrombin Time 11.3 SECONDS (9.0-12.0) Prothromb Time International Ratio 1.1 (0.9-1.1) Total Bilirubin 0.4 mg/dl (0.2-1) Aspartate Amino Transf (AST/SGOT) 19 U/L (15-37) Alanine Aminotransferase (ALT/SGPT) 16 U/L (12-78) Alkaline Phosphatase 46 U/L (45-117) Pro-B-Type Natriuretic Peptide > 40884 pg/ml (0-1800) Total Protein 8.2 gm/dl (6.4-8.2) Albumin 2.9 gm/dl (3.4-5.0) Globulin 5.3 gm/dl (2.5-4.0) Albumin/Globulin Ratio 0.5 (0.9-2) Laboratory results per my review. ECG Indication: SOB/dyspnea Rate (beats per minute): 80 Rhythm: normal sinus Findings: RBBB, ST depression (Diffuse), no ectopy Comparison ECG Date: 12/30/16 Change: ST depressions have worsened EKG has been interpreted by me ED Course 1416: The patient was evaluated in room C6. A complete history and physical examination were performed. 1540: Upon reevaluation, the patient is doing resting. I discussed results and treatment plan with her. She verbalizes agreement and understanding. The patient will be evaluated for further management and care. 1547: I discussed the patient's case with Dr. Delacruz. The patient will be evaluated for further management. Medical Decision Differential diagnosis: Etiologies such as infections, reactive airway disease, pneumonia, pneumothorax , COPD, CHF, cardiac ischemia, pulmonary embolism, musculoskeletal, gastrointestinal, as well as others were entertained. Nursing notes reviewed. Additional history is obtained from the prehospital personnel. The patient is an 82-year-old female who presented to the emergency department from dialysis for shortness of breath. The patient appeared to have some EKG changes which were new compared to previous. At this time she denies having any chest pain or shortness of breath. She reportedly had low oxygen saturation prior to arrival but this has improved since arriving in the emergency department. I discussed the patient's laboratory and radiographic studies with her. I was concerned that her shortness of breath could represent cardiac ischemia. She had an elevated troponin. For this reason I discussed her case with the on-call [facility] hospitalist. They have agreed to evaluate the patient in the emergency department for further management and disposition. Medication Reconcilliation Current Medication List: was personally reviewed by me Blood Pressure Screening Patient's blood pressure: Elevated blood pressure Monitored by the hospitalist Consults Time Called: [phone] Consulting Physician: Dr. Delacruz Returned Call: [phone] I discussed the patient's case with Dr. Delacruz. The patient will be evaluated for further management. Impression Primary Impression: Abnormal EKG Additional Impressions: Shortness of breath Elevated troponin Scribe Attestation The scribe's documentation has been prepared under my direction and personally reviewed by me in its entirety. I confirm that the note above accurately reflects all work, treatment, procedures, and medical decision making performed by me. Departure Information Dispostion Being Evaluated By Hospitalist Referrals Burke Berg MD (PCP) Problem Qualifiers
--- NOTE | 2017-10-30 14:54 | DIAGNOSTIC IMAGING REPORT ---
SINGLE VIEW CHEST CLINICAL HISTORY: Dyspnea. FINDINGS: An AP, portable, upright chest radiograph is compared to study dated 12/31/2016. The examination is degraded by portable technique and patient rotation. A right sided central venous catheter is in place. The heart is top normal for projection and there is atherosclerotic calcification of the thoracic aorta. The pulmonary vasculature is noncongested. Small pleural effusions are noted and there is bibasilar atelectasis. No pneumothorax is seen. The skeletal structures are osteopenic. There are healed right-sided rib fractures. IMPRESSION: Small pleural effusions with bibasilar atelectasis. Electronically signed by: Waylon Fam M.D. 10/30/2017 2:53 PM Dictated Date/Time: 10/30/2017 2:52 PM
[2017-10-30 14:56] LABS: BASO % 0.7 %; BASO ABS # 0.06 K/uL (0-0.2); EOS % 5.3 %; EOS ABS # 0.44 K/uL (0-0.5); HEMOGLOBIN 10.7 g/dL (12.0-16.0); IG# 0.02 K/uL (0.00-0.02); LYMPH % 11.2 %; LYMPH ABS # 0.93 K/uL (1.2-3.4); MEAN CELL VOLUME 82.5 fL (80-100); MEAN CORPUSCULAR HGB CONC 31.5 g/dl (32-36); MEAN PLATELET VOLUME 8.7 fL (7.4-10.4); MONO % 10.9 %; MONO ABS # 0.91 K/uL (0.11-0.59); NEUT % 71.7 %; NEUT ABS # 5.98 K/uL (1.4-6.5); PLATELET COUNT 373 K/uL (130-400); RED CELL DISTRIBUTION WIDTH CV 16.3 % (11.5-14.5); RED CELL DISTRIBUTION WIDTH SD 49.4 fL (36.4-46.3); WHITE BLOOD COUNT 8.34 K/uL (4.8-10.8)
[2017-10-30 15:04] LABS: INR 1.1 (0.9-1.1); PTT PATIENT 28.8 SECONDS (21.0-31.0)
[2017-10-30 15:13] LABS: ALBUMIN 2.9 gm/dl (3.4-5.0); ALT/SGPT 16 U/L (12-78); AST/SGOT 19 U/L (15-37); BLOOD UREA NITROGEN 10 mg/dl (7-18); CALCIUM 9.6 mg/dl (8.5-10.1); CARBON DIOXIDE 32 mmol/L (21-32); CREATININE 1.58 mg/dl (0.60-1.20); GLUCOSE 85 mg/dl (70-99); SODIUM 134 mmol/L (136-145)
[2017-10-30 15:22] LABS: ALKALINE PHOSPHATASE 46 U/L (45-117); TOTAL PROTEIN 8.2 gm/dl (6.4-8.2)
[2017-10-30] MEDS ORDERED: DOCUSATE SODIUM 100 MG CAP PO PRN (16:45)
[2017-10-30] MEDS ORDERED: NITROGLYCERIN 0.4 MG SL PER TAB CHARGE SL PRN (16:45)
[2017-10-30] MEDS ORDERED: ALUMINUM/MAGNESIUM/SIMETH (MAALOX MAX) 30 ML UDC PO PRN (16:45)
[2017-10-30] MEDS ORDERED: ACETAMINOPHEN 325 MG TAB PO PRN (16:45)
[2017-10-30] MEDS ORDERED: NITROGLYCERIN 0.4 MG SL PER TAB CHARGE UT PRN (16:45)
[2017-10-30] MEDS ORDERED: MAGNESIUM HYDROXIDE SUSP 30 ML UDC PO PRN (16:45)
[2017-10-30] MEDS ORDERED: ONDANSETRON INJ 2 MG/ML 2 ML VIAL IV PRN (16:45)
[2017-10-30] MEDS ORDERED: GUAIFENESIN/DEXTROM SYRUP 100MG/10MG 5ML UDC PO PRN (17:00)
[2017-10-30 18:40] VITALS: BP 132/66; PULSE 82; TEMP 36.6; O2SAT 97; BMI 16.6
[2017-10-30] MEDS ORDERED: IV FLUIDS COMPLETED PRN (19:45)
[2017-10-30] MEDS ORDERED: CEFTRIAXONE SOD INJ 1 GM in DEXTROSE 5% ADD-VANTAGE 50ML 50 ML IV SCH (20:00)
[2017-10-30] MEDS: DOXYCYCLINE HYCLATE 100 MG CAP PO SCH (20:33)
[2017-10-30 20:35] VITALS: BP 171/75; PULSE 87
[2017-10-30] MEDS: METOPROLOL TARTRATE 25 MG TAB PO SCH (20:35)
--- NOTE | 2017-10-30 21:20 | HISTORY & PHYSICAL EXAMINATION ---
DATE OF ADMISSION: 10/30/2017 CHIEF COMPLAINT: Shortness of breath. HISTORY OF PRESENT ILLNESS: This is an 82-year-old female with past medical history significant for end-stage renal disease on dialysis, history of hyperthyroidism of renal origin, iron deficiency anemia, hypertension, diastolic dysfunction, mitral regurgitation; was brought in from dialysis because of hypoxia. The patient says since last 3 weeks she has cough and she saw her family doctor on 27 of October, and chest x-ray showed possible pneumonia and she was prescribed doxycycline. The cough is getting better, but today at dialysis she suddenly felt short of breath and was hypoxic and was desaturated, and was brought into the ER. In the ER, she is doing fine. She is saturating fine at 96% on room air. Denies any chest pain during the episode or currently. No fever, no chills, no headaches, no dizziness, no blurred vision, no nausea, no vomiting. Appetite is okay. No abdominal pain. Usually constipated, but last bowel movement was yesterday. Does not make much urine. No burning micturition. Currently resting comfortably, and hemodynamically stable. She does not know why she felt short of breath during the dialysis. ALLERGIES: No known drug allergies. PAST MEDICAL HISTORY: As mentioned above. PAST SURGICAL HISTORY: Catheter placement in the right IJ perm catheter for dialysis on December 2016. MEDICATIONS: The patient currently is on doxycycline 100 mg p.o. b.i.d., Robitussin DM 5 mL every 4 hours p.r.n., hydralazine 25 mg p.o. t.i.d., Lopressor 12.5 mg p.o. b.i.d., Imdur 60 mg p.o. daily, Zofran 4 mg every 6 hours p.r.n., Senokot 8.6 mg tablet 3 tablets by mouth every 3 days p.r.n., Nitrostat 0.4 mg sublingual p.r.n., aspirin 81 mg p.o. daily, multivitamins 1 tablet p.o. daily. FAMILY HISTORY: Significant for father had heart disorder. SOCIAL HISTORY: Never smoked. No alcohol use. No drug use. Single. REVIEW OF SYMPTOMS: As per HPI. Rest of review of systems negative. PHYSICAL EXAMINATION: GENERAL: The patient is old and frail, not in distress. VITAL SIGNS: Temperature 36.5, pulse 80, respiratory rate 20, blood pressure 156/57, oxygen 98% on room air. HEENT: No pallor, no icterus. Pupils equal, round, and reactive to light. NECK: No JVD, no neck masses, no carotid bruits. CARDIOVASCULAR: S1, S2 heard. Regular rate and rhythm. No murmur, no gallop. RESPIRATORY SYSTEM: No accessory muscle use. No wheezing. Mild bibasilar crackles. ABDOMEN: Soft, bowel sounds present, nontender. No distention. CENTRAL NERVOUS SYSTEM: Cranial nerves II-XII grossly intact. Nonfocal. EXTREMITIES: Bilateral lower extremity present. LABORATORY DATA: WBC 8.3, hemoglobin 10.7, hematocrit 34, platelets 373. Sodium 134, potassium 3, chloride 97, CO2 22, BUN 10, creatinine 1.5, serum glucose 85, calcium 9.6, total bilirubin 0.4, AST 19, ALT 16, alkaline phosphatase 46, troponin 0.016, BNP greater than 35,000. PT 11.3, INR 1.1, PTT 28.8. Chest x-ray: Bibasilar atelectasis, small pleural effusions. EKG: Normal sinus rhythm with a rate of 88, right bundle branch block seen, ST depression in lateral leads ASSESSMENT AND PLAN: This is an 82-year-old female who presents with shortness of breath and found to have elevated troponin. 1. Hypoxic during dialysis, but currently is stable, asymptomatic, no chest pain. The elevation of mild troponin most likely demand ischemia from hypoxia. EKG changes. We will repeat EKG, follow echocardiogram, and follow serial cardiac enzymes. consult cardiology in am . low dose iv heparin.Close monitoring in tele floor. 2. Possible pneumonia. Recently was placed on doxycycline by family doctor because she was having cough for the last 3 weeks and for questionable bibasilar atelectasis versus pneumonia. She says she is improved since on doxycycline. We will continue doxycycline, also place on IV Rocephin and monitor and also cough syrup. 3. End-stage renal disease, on hemodialysis. We will consult nephrology 4. Hypertension. Continue hydralazine, metoprolol, Lopressor, Imdur, and monitor the blood pressure. 5. Chronic diastolic dysfunction. The patient is on dialysis. 6. Iron deficiency anemia. We will follow the labs. 7. Deep venous thrombosis prophylaxis. Sequential compression devices and TEDs. 8. Disposition: Observation on tele floor. Expect to discharge home and follow with her family doctor. Level 1 full code. MTDD
[2017-10-30] MEDS ORDERED: HEPARIN IV LOW DOSE NO BOLUS SCH (21:45)
[2017-10-30] MEDS ORDERED: HEPARIN 25,000 UNIT/500ML D5W 500 ML IV PRN (22:15)
[2017-10-31 00:20] VITALS: BP 153/71; PULSE 81; TEMP 36.9; O2SAT 96
[2017-10-31 03:26] VITALS: BP 150/76; PULSE 77; TEMP 36.9; O2SAT 96
[2017-10-31 04:50] LABS: BASO ABS # 0.08 K/uL (0-0.2); EOS % 6.5 %; EOS ABS # 0.52 K/uL (0-0.5); HEMATOCRIT 32.2 % (37-47); IG# 0.02 K/uL (0.00-0.02); LYMPH % 15.6 %; LYMPH ABS # 1.25 K/uL (1.2-3.4); MEAN CELL VOLUME 82.8 fL (80-100); MEAN CORPUSCULAR HEMOGLOBIN 25.7 pg (25-34); MEAN CORPUSCULAR HGB CONC 31.1 g/dl (32-36); MEAN PLATELET VOLUME 8.9 fL (7.4-10.4); MONO % 10.2 %; MONO ABS # 0.82 K/uL (0.11-0.59); NEUT % 66.5 %; NEUT ABS # 5.32 K/uL (1.4-6.5); PLATELET COUNT 335 K/uL (130-400); RED CELL DISTRIBUTION WIDTH CV 16.5 % (11.5-14.5); RED CELL DISTRIBUTION WIDTH SD 49.8 fL (36.4-46.3); WHITE BLOOD COUNT 8.01 K/uL (4.8-10.8)
[2017-10-31 05:05] LABS: CALCIUM 9.2 mg/dl (8.5-10.1); CREATININE 2.57 mg/dl (0.60-1.20); POTASSIUM 3.2 mmol/L (3.5-5.1)
[2017-10-31 05:07] LABS: PTT PATIENT 30.7 SECONDS (21.0-31.0)
[2017-10-31 06:28] LABS: PTT PATIENT 32.2 SECONDS (21.0-31.0)
[2017-10-31] MEDS ORDERED: HEPARIN IV BOLUS 3,000 UNIT in SYRINGE 0 ML IV ONE (07:00)
[2017-10-31 07:59] VITALS: BP 135/83; PULSE 99; TEMP 36.7; O2SAT 95
[2017-10-31] MEDS ORDERED: ISOSORBIDE MONONITRATE 60 MG TABCR PO SCH (09:00)
[2017-10-31] MEDS ORDERED: ASPIRIN 81 MG ECTAB PO SCH (09:00)
[2017-10-31] MEDS ORDERED: ASCORBIC ACID 500 MG TAB PO SCH (09:00)
[2017-10-31] MEDS ORDERED: CEROVITE ADV FORMULA TAB PO SCH (09:00)
[2017-10-31] MEDS: DOXYCYCLINE HYCLATE 100 MG CAP PO SCH (09:11)
[2017-10-31] MEDS: METOPROLOL TARTRATE 25 MG TAB PO SCH (09:13)
[2017-10-31] MEDS ORDERED: POTASSIUM CHLORIDE 10 MEQ TABCR PO STA (10:08)
--- NOTE | 2017-10-31 10:35 | ECHOCARDIOGRAM REPORT ---
*NOTICE TO RECEIVING [employer] This information is strictly Confidential and protected under [place] law. [place] law prohibits you from making any further disclosure of this information unless further disclosure is expressly permitted by the written consent of the person to whom it pertains or is authorized by law. A general authorization for the release of medical or other information is not sufficient for this purpose. Hospital accepts no responsibility if the information is made available to any other person, INCLUDING THE PATIENT. Interpretation Summary * Name: MARY PUGH Study Date: 10/31/2017 08:24 AM BP: 150/76 mmHg * Patient Location: C.2T\S\E218\S\1 HR: 102 * : 1935 (M/d/yyyy) Gender: Female Height: 60 in * Age: 82 yrs Ethnicity: [place] Weight: 88 lb * Ordering Physician: Juan David Delacruz * Referring Physician: Self, Referred * Performed By: Mindi Dial RCS * * Reason For Study: ELEVATED TROPONIN / SOB * BSA: 1.3 m2 * -- Conclusions -- * Normal LV chamber size with mild concentric LVH. * Normal LV systolic function, EF 55-60%. * No segmental left ventricular wall motion abnormalities are noted. * Grade I diastolic dysfunction. * Aortic valve sclerosis mild, without significant aortic valvular stenosis. * Mild to moderate mitral regurgitation. * Pulmonary hypertension is present with a PASP of 51 mmHg assuming a RA pressure of 3 mmHg. Procedure Details * A complete two-dimensional transthoracic echocardiogram was performed (2D, M-mode, Doppler and color flow Doppler). Left Ventricle * The left ventricle is normal in size. * There is mild concentric left ventricular hypertrophy. * Left ventricular systolic function is normal. * No segmental left ventricular wall motion abnormalities are noted. * Ejection Fraction = 55-60%. * The left ventricular wall motion is normal. Right Ventricle * The right ventricular cavity size is normal (basal dimension <4.2 cm in right ventricular apical 4-chamber view). * The right ventricular systolic function is normal as assessed by tricuspid annular plane systolic excursion (TAPSE) (normal >1.5 cm). Atria * The left atrial size is normal. * Right atrial size is normal. * No ASD detected; PFO is not assessed. Mitral Valve * The mitral valve anatomy is normal. * There is no mitral valve stenosis. * There is mild to moderate mitral regurgitation. Tricuspid Valve * The tricuspid valve is normal in structure and function. Aortic Valve * The aortic valve is trileaflet. * Aortic valve sclerosis mild, without significant aortic valvular stenosis. * There is no significant aortic regurgitation. Pulmonic Valve * The pulmonary valve is not well seen, but the Doppler examination is normal without significant regurgitation or stenosis. Great Vessels * The aortic root is normal size. Pericardium/Pleural * There is no pericardial effusion. Left Ventricular Diastolic Function * Grade I diastolic dysfunction, (abnormal relaxation pattern). MMode 2D Measurements and Calculations IVSd 1.2 cm IVSs 1.6 cm LVIDd 3.3 cm LVIDs 2.3 cm LVPWd 0.86 cm LVPWs 1.2 cm IVS/LVPW 1.4 FS 28.7 % EDV(Teich) 43.3 ml ESV(Teich) 18.8 ml EF(Teich) 56.5 % EDV(cubed) 35.1 ml ESV(cubed) 12.7 ml EF(cubed) 63.7 % % IVS thick 32.9 % % LVPW thick 41.9 % LV mass(C)d 99.3 grams LV mass(C)dI 75.4 grams/m\S\2 LV mass(C)s 105.8 grams LV mass(C)sI 80.4 grams/m\S\2 SV(Teich) 24.4 ml SI(Teich) 18.6 ml/m\S\2 SV(cubed) 22.3 ml SI(cubed) 17.0 ml/m\S\2 Ao root diam 2.3 cm Ao root area 4.1 cm\S\2 LA dimension 2.4 cm LA/Ao 1.0 LVOT diam 1.9 cm LVOT area 2.8 cm\S\2 LVAd ap4 29.1 cm\S\2 LVLd ap4 7.3 cm EDV(MOD-sp4) 93.9 ml EDV(sp4-el) 98.1 ml LVAs ap4 19.9 cm\S\2 LVLs ap4 7.0 cm ESV(MOD-sp4) 45.7 ml ESV(sp4-el) 47.9 ml EF(MOD-sp4) 51.3 % EF(sp4-el) 51.1 % LVAd ap2 29.9 cm\S\2 LVLd ap2 8.0 cm EDV(MOD-sp2) 91.6 ml EDV(sp2-el) 94.1 ml LVAs ap2 22.1 cm\S\2 LVLs ap2 7.8 cm ESV(MOD-sp2) 50.7 ml ESV(sp2-el) 53.0 ml EF(MOD-sp2) 44.6 % EF(sp2-el) 43.7 % LVLd %diff 9.1 % EDV(MOD-bp) 96.2 ml LVLs %diff 10.7 % ESV(MOD-bp) 51.0 ml EF(MOD-bp) 47.0 % SV(MOD-sp4) 48.2 ml SI(MOD-sp4) 36.6 ml/m\S\2 SV(MOD-sp2) 40.8 ml SI(MOD-sp2) 31.0 ml/m\S\2 SV(MOD-bp) 45.2 ml SI(MOD-bp) 34.3 ml/m\S\2 SV(sp4-el) 50.2 ml SI(sp4-el) 38.1 ml/m\S\2 SV(sp2-el) 41.1 ml SI(sp2-el) 31.2 ml/m\S\2 Doppler Measurements and Calculations MV E max yousuf 143.4 cm/sec MV A max yousuf 138.0 cm/sec MV E/A 1.0 MV P1/2t max yousuf 144.9 cm/sec MV P1/2t 61.4 msec MVA(P1/2t) 3.6 cm\S\2 MV dec slope 691.6 cm/sec\S\2 MV dec time 0.14 sec Ao V2 max 211.9 cm/sec Ao max PG 18.0 mmHg Ao max PG (full) 15.4 mmHg ISAAC(V,A) 1.1 cm\S\2 ISAAC(V,D) 1.1 cm\S\2 LV V1 max PG 2.5 mmHg LV V1 max 79.8 cm/sec MR max yousuf 396.2 cm/sec MR max PG 62.8 mmHg TR max yousuf 345.9 cm/sec
--- NOTE | 2017-10-31 10:49 | Progress Note ---
Subjective Date of Service: Oct 31, 2017. Subjective Pt evaluation today including: conversation w/ patient, physical exam, lab review, review of studies, review of inpatient medication list Saw/examined the patient in room 218 States she was seen by primary care last week for a lingering cough; had a CXR done which showed possible pneumonia she was prescribed doxycycline, which she took for one day. She was seen in dialysis yesterday and had a coughing episode and she became hypoxic and so she was sent to the ER. She has been doing much better overnight and today has no oxygen on and is saturating well. Denies any chest pain/palpitations/shortness of breath. +cough +sputum persist. Problem List Medical Problems: (1) Abnormal EKG Status: Acute (2) Cellulitis of both lower extremities Status: Acute (3) Confusion Status: Acute (4) Elevated troponin Status: Acute (5) Fall Status: Acute (6) Shortness of breath Status: Acute (7) Uremia Status: Acute (8) Weakness Status: Acute Review of Systems Constitutional: No fever, No chills, No weakness Respiratory: + cough, + sputum, No wheezing, No shortness of breath, No dyspnea on exertion, No dyspnea at rest, No hemoptysis Cardiac: No chest pain, No edema, No palpitations Abdomen: No pain, No nausea, No vomiting, No diarrhea Musculoskeletal: No joint pain Heme: No abnormal bleeding/bruising Medications Current Inpatient Medications Medications (Trade) Dose Ordered Sig/Cj Route Start Time Stop Time Status Last Admin Dose Admin Acetaminophen (Tylenol Tab) 650 mg Q4H PRN PO 10/30/17 16:45 11/29/17 16:44 Al Hydrox/Mg Hydrox/Simethicone (Maalox Max Susp) 15 ml Q4H PRN PO 10/30/17 16:45 11/29/17 16:44 Magnesium Hydroxide (Milk Of Magnesia Susp) 30 ml Q12H PRN PO 10/30/17 16:45 11/29/17 16:44 Ondansetron HCl (Zofran Inj) 4 mg Q6H PRN IV 10/30/17 16:45 11/29/17 16:44 Aspirin (Ecotrin Tab) 81 mg DAILY PO 10/31/17 09:00 11/30/17 08:59 10/31/17 09:12 81 MG Docusate Sodium (coLACE CAP) 100 mg BID PRN PO 10/30/17 16:45 11/29/17 16:44 Isosorbide Mononitrate (Imdur Ext Rel Tab) 60 mg QAM PO 10/31/17 09:00 11/30/17 08:59 10/31/17 09:12 60 MG Metoprolol Tartrate (Lopressor Tab) 12.5 mg BID PO 10/30/17 21:00 11/29/17 20:59 10/31/17 09:13 12.5 MG Multivitamins/ Minerals (Multivitamin W/ Minerals Tab) 1 tab DAILY PO 10/31/17 09:00 11/30/17 08:59 10/31/17 09:12 1 TAB Nitroglycerin (Nitrostat Tab) 0.4 mg UD PRN UT 10/30/17 16:45 11/29/17 16:44 Ascorbic Acid (Vitamin C Tab) 125 mg DAILY PO 10/31/17 09:00 11/30/17 08:59 10/31/17 09:12 125 MG Ceftriaxone Sodium 1 gm/ Dextrose 50 ml @ 100 mls/hr Q24H IV 10/30/17 20:00 11/06/17 19:59 10/30/17 20:31 100 MLS/HR Doxycycline Hyclate (Vibramycin Cap) 100 mg BID PO 10/30/17 21:00 11/06/17 20:59 10/31/17 09:11 100 MG Guaifenesin/ Dextromethorphan (Robitussin-Dm Syrup) 5 ml Q6H PRN PO 10/30/17 17:00 11/29/17 16:59 Hydralazine HCl (Apresoline Tab) 25 mg TID PO 10/30/17 21:00 11/29/17 20:59 10/31/17 09:13 25 MG Miscellaneous (Iv Fluids Completed) 1 ea PRN PRN N/A 10/30/17 19:45 10/30/18 19:44 Objective Vital Signs Date Time Temp Pulse Resp B/P (MAP) Pulse Ox O2 Delivery O2 Flow Rate FiO2 10/31/17 08:00 Room Air 10/31/17 07:59 36.7 99 20 135/83 (100) 95 Room Air 10/31/17 04:00 Room Air 10/31/17 03:26 36.9 77 18 150/76 (100) 96 10/31/17 00:20 36.9 81 18 153/71 (98) 96 10/31/17 00:00 Room Air 10/30/17 20:35 87 171/75 (107) 10/30/17 18:40 36.6 82 16 132/66 97 Room Air 10/30/17 17:38 109 24 162/70 96 Room Air 10/30/17 16:30 80 25 156/62 96 Room Air 10/30/17 16:05 86 20 156/57 98 Room Air 10/30/17 15:17 82 20 142/97 Room Air 10/30/17 15:00 78 22 152/79 97 Room Air 10/30/17 14:41 98 Room Air 10/30/17 14:38 99 Room Air 10/30/17 14:38 99 Room Air 10/30/17 14:33 81 10/30/17 14:15 100 Room Air 10/30/17 14:15 36.5 80 20 137/69 100 Room Air Physical Exam General Appearance: no apparent distress Respiratory/Chest: no respiratory distress, no accessory muscle use, + rhonchi Cardiovascular: regular rate, rhythm, no edema, no murmur Extremities: normal inspection, no pedal edema Neurologic/Psychiatric: no motor/sensory deficits, alert, normal mood/affect Laboratory Results Last 24 Hours Test 10/30/17 14:35 10/31/17 00:27 10/31/17 04:30 10/31/17 05:50 White Blood Count 8.34 K/uL 8.01 K/uL Red Blood Count 4.12 M/uL 3.89 M/uL Hemoglobin 10.7 g/dL 10.0 g/dL Hematocrit 34.0 % 32.2 % Mean Corpuscular Volume 82.5 fL 82.8 fL Mean Corpuscular Hemoglobin 26.0 pg 25.7 pg Mean Corpuscular Hemoglobin Concent 31.5 g/dl 31.1 g/dl Platelet Count 373 K/uL 335 K/uL Mean Platelet Volume 8.7 fL 8.9 fL Neutrophils (%) (Auto) 71.7 % 66.5 % Lymphocytes (%) (Auto) 11.2 % 15.6 % Monocytes (%) (Auto) 10.9 % 10.2 % Eosinophils (%) (Auto) 5.3 % 6.5 % Basophils (%) (Auto) 0.7 % 1.0 % Neutrophils # (Auto) 5.98 K/uL 5.32 K/uL Lymphocytes # (Auto) 0.93 K/uL 1.25 K/uL Monocytes # (Auto) 0.91 K/uL 0.82 K/uL Eosinophils # (Auto) 0.44 K/uL 0.52 K/uL Basophils # (Auto) 0.06 K/uL 0.08 K/uL RDW Standard Deviation 49.4 fL 49.8 fL RDW Coefficient of Variation 16.3 % 16.5 % Immature Granulocyte % (Auto) 0.2 % 0.2 % Immature Granulocyte # (Auto) 0.02 K/uL 0.02 K/uL Prothrombin Time 11.3 SECONDS Prothromb Time International Ratio 1.1 Activated Partial Thromboplast Time 28.8 SECONDS 30.7 SECONDS 32.2 SECONDS Partial Thromboplastin Ratio 1.1 1.2 1.2 Sodium Level 134 mmol/L 135 mmol/L Potassium Level 3.0 mmol/L 3.2 mmol/L Chloride Level 97 mmol/L 98 mmol/L Carbon Dioxide Level 32 mmol/L 30 mmol/L Anion Gap 5.0 mmol/L 7.0 mmol/L Blood Urea Nitrogen 10 mg/dl 19 mg/dl Creatinine 1.58 mg/dl 2.57 mg/dl Est Creatinine Clear Calc Drug Dose 16.7 ml/min 9.9 ml/min Estimated GFR () 34.5 19.1 Estimated GFR (Non- 29.7 16.5 BUN/Creatinine Ratio 6.4 7.4 Random Glucose 85 mg/dl 86 mg/dl Calcium Level 9.6 mg/dl 9.2 mg/dl Total Bilirubin 0.4 mg/dl Aspartate Amino Transf (AST/SGOT) 19 U/L Alanine Aminotransferase (ALT/SGPT) 16 U/L Alkaline Phosphatase 46 U/L Troponin I 0.680 ng/ml 0.698 ng/ml Pro-B-Type Natriuretic Peptide > 64058 pg/ml Total Protein 8.2 gm/dl Albumin 2.9 gm/dl Globulin 5.3 gm/dl Albumin/Globulin Ratio 0.5 Magnesium Level 2.1 mg/dl Test 10/31/17 08:57 Troponin I 0.533 ng/ml Assessment and Plan This is an 82 year old female with a PMH of HTN, ESRD on hemodialysis M-W-F, moderate mitral regurgitation, chronic diastolic dysfunction, anemia of kidney disease and iron deficiency - presents with cough and hypoxia Hypoxic Episode secondary to CAP vs. Acute Bronchitis patient was sent to the ED due to hypoxia at dialysis patient was recently diagnosed with likely pneumonia and started on doxycycline cough and sputum production persist CXR on 10/30 does not suggest any pneumonia, no white count, no fever we can continue doxycycline at this time; will d/c Rocephin she has been weaned off of O2 and saturating well on room air will give 20mg of prednisone for bronchospasm - and likely start a medrol dosepak on discharge cough medications PRN Elevated Troponin likely secondary to ESRD has had elevated troponin in the past echo reviewed, mild diastolic dysfunction, moderate mitral regurgitation EKG looks similar to ones in May 2017; with PVCs will stop IV heparin cancel cardiology consultation clinically denies any symptoms HTN blood pressure is labile will continue home medications likely elevated periods during coughing fits DVT ppx SCDs FULL CODE possible d/c home today (10/31) depending on clinical picture
[2017-10-31 12:28] VITALS: BP 150/75; PULSE 88; TEMP 36.8; O2SAT 98
--- NOTE | 2017-10-31 14:49 | Nephrology Consultation ---
Nephrology Consultation Date of Consultation: Oct 31, 2017. Attending Physician: Dr Grijalva Requesting Physician: Dr Delacruz Reason for Consultation: ESRD History of Present Illness 82 year old female on MWF HD sent to ER after feeling very poorly at dialysis. Other PMH includes severe mitral rgg, diastolic/valvular HF, HTN. She had been having worsening fatigue and weakness for the past 2 weeks. Had been rx'd liquid antibiotic but had not picked up. States she has her full tx yesterday. Some concern at admission about possible cardiac ischemia: she was on heparin gtt until she had eid evaluation. Seiral troponins have been trending down Past Medical/Surgical History Medical Problems: (1) Abnormal EKG Status: Acute (2) Cellulitis of both lower extremities Status: Acute (3) Confusion Status: Acute (4) Elevated troponin Status: Acute (5) Fall Status: Acute (6) Shortness of breath Status: Acute (7) Uremia Status: Acute (8) Weakness Status: Acute -ESRD on HD -mitral rgg with valvular HF -HTN Family History Heart disease Social History Smoking Status: Never Smoker Alcohol Use: occasionally Drug Use: none Marital Status: Housing Status: lives with family Occupation Status: retired Allergies Coded Allergies: No Known Allergies (Unverified , 10/30/17) Medications Current Inpatient Medications Medications (Trade) Dose Ordered Sig/Cj Route Start Time Stop Time Status Last Admin Dose Admin Acetaminophen (Tylenol Tab) 650 mg Q4H PRN PO 10/30/17 16:45 11/29/17 16:44 Al Hydrox/Mg Hydrox/Simethicone (Maalox Max Susp) 15 ml Q4H PRN PO 10/30/17 16:45 11/29/17 16:44 Magnesium Hydroxide (Milk Of Magnesia Susp) 30 ml Q12H PRN PO 10/30/17 16:45 11/29/17 16:44 Ondansetron HCl (Zofran Inj) 4 mg Q6H PRN IV 10/30/17 16:45 11/29/17 16:44 Aspirin (Ecotrin Tab) 81 mg DAILY PO 10/31/17 09:00 11/30/17 08:59 10/31/17 09:12 81 MG Docusate Sodium (coLACE CAP) 100 mg BID PRN PO 10/30/17 16:45 11/29/17 16:44 Isosorbide Mononitrate (Imdur Ext Rel Tab) 60 mg QAM PO 10/31/17 09:00 11/30/17 08:59 10/31/17 09:12 60 MG Metoprolol Tartrate (Lopressor Tab) 12.5 mg BID PO 10/30/17 21:00 11/29/17 20:59 10/31/17 09:13 12.5 MG Multivitamins/ Minerals (Multivitamin W/ Minerals Tab) 1 tab DAILY PO 10/31/17 09:00 11/30/17 08:59 10/31/17 09:12 1 TAB Nitroglycerin (Nitrostat Tab) 0.4 mg UD PRN UT 10/30/17 16:45 11/29/17 16:44 Ascorbic Acid (Vitamin C Tab) 125 mg DAILY PO 10/31/17 09:00 11/30/17 08:59 10/31/17 09:12 125 MG Ceftriaxone Sodium 1 gm/ Dextrose 50 ml @ 100 mls/hr Q24H IV 10/30/17 20:00 11/06/17 19:59 10/30/17 20:31 100 MLS/HR Doxycycline Hyclate (Vibramycin Cap) 100 mg BID PO 10/30/17 21:00 11/06/17 20:59 10/31/17 09:11 100 MG Guaifenesin/ Dextromethorphan (Robitussin-Dm Syrup) 5 ml Q6H PRN PO 10/30/17 17:00 11/29/17 16:59 Hydralazine HCl (Apresoline Tab) 25 mg TID PO 10/30/17 21:00 11/29/17 20:59 10/31/17 09:13 25 MG Miscellaneous (Iv Fluids Completed) 1 ea PRN PRN N/A 10/30/17 19:45 10/30/18 19:44 Heparin Sodium/ Dextrose 500 ml @ 11 mls/hr Q24H PRN IV 10/30/17 22:15 11/29/17 22:14 10/30/17 22:36 9 MLS/HR Home Meds and Scripts Medications Dose Route/Sig Max Daily Dose Days Date Category Docusate Sodium 100 Mg Cap 100 Mg PO BID PRN 10 01/09/17 Rx Metoprolol Tartrate 50 Mg Tab 12.5 Mg PO BID 30 01/09/17 Rx Hydralazine HCl 50 Mg Tab 25 Mg PO TID 10 01/09/17 Rx Imdur Ext Rel (Isosorbide Mononitrate) 60 Mg Ertab 60 Mg PO QAM 12/29/16 Reported Aspirin Ec (Aspirin) 81 Mg Tab 81 Mg PO DAILY 12/29/16 Reported Vitamin C (Ascorbic Acid) 100 Mg Chw 100 Mg PO DAILY 05/13/16 Reported Nitrostat (Nitroglycerin) 0.4 Mg Tab 0.4 Mg UT UD PRN 05/13/16 Reported Mvi With Minerals (Multivitamins/Minerals) Tab 1 Tab PO DAILY 08/22/15 Reported Review of Systems Constitutional: + weakness, + fatigue, No fever Eyes: No worsening of vision ENT: + trouble swallowing (chronic problems swallowing pills), No hearing loss , No sore throat Respiratory: No cough, No shortness of breath Cardiac: No chest pain, No edema, No palpitations Abdomen: + dysphagia (chronic to pills), No pain, No nausea, No vomiting, No diarrhea Musculoskeletal: No joint pain, No muscle pain Female : + problem reported (denies change in chronic voiding habits) Neuro: + weakness, + balance problems, No memory loss Psych: No depression symptoms, No anxiety Heme: No abnormal bleeding/bruising Endo: + fatigue (poor sleep overnight) Skin: No rash, No itch, No new/changing skin lesions Physical Exam Date Time Temp Pulse Resp B/P (MAP) Pulse Ox O2 Delivery O2 Flow Rate FiO2 10/31/17 07:59 36.7 99 20 135/83 (100) 95 Room Air 10/31/17 04:00 Room Air 10/31/17 03:26 36.9 77 18 150/76 (100) 96 10/31/17 00:20 36.9 81 18 153/71 (98) 96 10/31/17 00:00 Room Air 10/30/17 20:35 87 171/75 (107) 10/30/17 18:40 36.6 82 16 132/66 97 Room Air 10/30/17 17:38 109 24 162/70 96 Room Air 10/30/17 16:30 80 25 156/62 96 Room Air 10/30/17 16:05 86 20 156/57 98 Room Air 10/30/17 15:17 82 20 142/97 Room Air 10/30/17 15:00 78 22 152/79 97 Room Air 10/30/17 14:41 98 Room Air 10/30/17 14:38 99 Room Air 10/30/17 14:38 99 Room Air 10/30/17 14:33 81 10/30/17 14:15 100 Room Air 10/30/17 14:15 36.5 80 20 137/69 100 Room Air General Appearance: WD/WN, no apparent distress, + thin, + pertinent finding ( frail looking woman sitting up in chair on RA) Eyes: EOMI ENT: hearing grossly normal Neck: supple Respiratory/Chest: lungs clear, + decreased breath sounds Cardiovascular: regular rate, rhythm, no edema Abdomen: normal bowel sounds, non tender, soft, + pertinent finding (no tovar) Extremities: non-tender, no pedal edema Neurologic/Psych: alert, normal mood/affect, oriented x 3 Skin: no jaundice, warm/dry, no rash Diagnostics Last 24 Hours Test 10/30/17 14:35 10/31/17 00:27 10/31/17 04:30 10/31/17 05:50 White Blood Count 8.34 K/uL 8.01 K/uL Red Blood Count 4.12 M/uL 3.89 M/uL Hemoglobin 10.7 g/dL 10.0 g/dL Hematocrit 34.0 % 32.2 % Mean Corpuscular Volume 82.5 fL 82.8 fL Mean Corpuscular Hemoglobin 26.0 pg 25.7 pg Mean Corpuscular Hemoglobin Concent 31.5 g/dl 31.1 g/dl Platelet Count 373 K/uL 335 K/uL Mean Platelet Volume 8.7 fL 8.9 fL Neutrophils (%) (Auto) 71.7 % 66.5 % Lymphocytes (%) (Auto) 11.2 % 15.6 % Monocytes (%) (Auto) 10.9 % 10.2 % Eosinophils (%) (Auto) 5.3 % 6.5 % Basophils (%) (Auto) 0.7 % 1.0 % Neutrophils # (Auto) 5.98 K/uL 5.32 K/uL Lymphocytes # (Auto) 0.93 K/uL 1.25 K/uL Monocytes # (Auto) 0.91 K/uL 0.82 K/uL Eosinophils # (Auto) 0.44 K/uL 0.52 K/uL Basophils # (Auto) 0.06 K/uL 0.08 K/uL RDW Standard Deviation 49.4 fL 49.8 fL RDW Coefficient of Variation 16.3 % 16.5 % Immature Granulocyte % (Auto) 0.2 % 0.2 % Immature Granulocyte # (Auto) 0.02 K/uL 0.02 K/uL Prothrombin Time 11.3 SECONDS Prothromb Time International Ratio 1.1 Activated Partial Thromboplast Time 28.8 SECONDS 30.7 SECONDS 32.2 SECONDS Partial Thromboplastin Ratio 1.1 1.2 1.2 Sodium Level 134 mmol/L 135 mmol/L Potassium Level 3.0 mmol/L 3.2 mmol/L Chloride Level 97 mmol/L 98 mmol/L Carbon Dioxide Level 32 mmol/L 30 mmol/L Anion Gap 5.0 mmol/L 7.0 mmol/L Blood Urea Nitrogen 10 mg/dl 19 mg/dl Creatinine 1.58 mg/dl 2.57 mg/dl Est Creatinine Clear Calc Drug Dose 16.7 ml/min 9.9 ml/min Estimated GFR () 34.5 19.1 Estimated GFR (Non- 29.7 16.5 BUN/Creatinine Ratio 6.4 7.4 Random Glucose 85 mg/dl 86 mg/dl Calcium Level 9.6 mg/dl 9.2 mg/dl Total Bilirubin 0.4 mg/dl Aspartate Amino Transf (AST/SGOT) 19 U/L Alanine Aminotransferase (ALT/SGPT) 16 U/L Alkaline Phosphatase 46 U/L Troponin I 0.680 ng/ml 0.698 ng/ml Pro-B-Type Natriuretic Peptide > 81519 pg/ml Total Protein 8.2 gm/dl Albumin 2.9 gm/dl Globulin 5.3 gm/dl Albumin/Globulin Ratio 0.5 Magnesium Level 2.1 mg/dl Test 10/31/17 08:57 Diagnostic Radiology: TTE today * Normal LV chamber size with mild concentric LVH. * Normal LV systolic function, EF 55-60%. * No segmental left ventricular wall motion abnormalities are noted. * Grade I diastolic dysfunction. * Aortic valve sclerosis mild, without significant aortic valvular stenosis. * Mild to moderate mitral regurgitation. * Pulmonary hypertension is present with a PASP of 51 mmHg assuming a RA pressure of 3 mmHg. EKG: ECG this am HR 98 w/ RBBB and more prominent T wave inversion than yesterday on inferior leads Assessment & Plan 82 y/o F w/ ESRD on mwf HD and mitral rgg and 2 wks of worsening weakness, fatigue, with transient hypoxia. Improved w/ IV abtx, rest > for possible d/c today/tomorrow ESRD -no indication for further HD today as her chemistries, volume status are acceptable and no uremic sx Anemia of esrd -- hgb acceptable for esrd in 10s and stable HTN somewhat on higher side with some minimally elevated troponin and ? new ecg changes though TTE reassuring >> cont outpt meds CAP v acute bronchitis >> per primary service; to cont doxycycline (crushed) and medrol dose terrence Appreciate consult; care coordinated w/ Dr. Grijalva.
[2017-10-31 16:06] VITALS: Ht 152.4 cm; Wt 40.0 kg
[2017-10-31 16:07] VITALS: BP 131/72; PULSE 86; TEMP 36.5; O2SAT 95
[2017-10-31] MEDS ORDERED: METH4PAK PO (16:51)
[2017-10-31] MEDS ORDERED: DXY100 PO (16:51)
--- NOTE | 2017-10-31 16:56 | Discharge Instructions ---
Discharge Instructions Date of Service Oct 31, 2017. Admission Reason for Admission: Elevated Troponin, Shortness Of Breath Discharge Discharge Diagnosis / Problem: likely Bronchitis or Pneumonia Discharge Goals Goal(s): Decrease discomfort, Improve function, Diagnostic testing, Therapeutic intervention Activity Recommendations Activity Limitations: resume your previous activity . Instructions / Follow-Up Instructions / Follow-Up Please follow-up with your primary care physician - you will receive a phone call with a date/time * You will be discharged on doxycycline (antibiotic) - take this twice a day for seven days - you can crush these pills * You will also be discharged on a medrol dosepak (steroids) - please follow the pack for instructions - you can crush these as well Current Hospital Diet Patient's current hospital diet: Renal Diet Discharge Diet Recommended Diet: Renal Diet Pending Studies Studies pending at discharge: no Medical Emergencies . Who to Call and When: Medical Emergencies: If at any time you feel your situation is an emergency, please call 911 immediately. . Non-Emergent Contact Non-Emergency issues call your: Primary Care Provider . . "Provider Documentation" section prepared by Kia Grijalva. . VTE Core Measure Inpt VTE Proph given/why not?: Other Anticoagulation (IV heparin)
--- NOTE | 2017-10-31 16:58 | Discharge Summary ---
Discharge Summary Date of Service Oct 31, 2017. Discharge Summary Admission Date: Oct 30, 2017 at 16:51 Discharge Date: Oct 31, 2017 Discharge Disposition: Home Principal Diagnosis: Acute Bronchitis vs. Community Acquired Pneumonia ESRD on HD Elevated Troponin Medication Reconciliation New Medications: Methylprednisolone (Medrol Dosepak) 4 Mg Taye 1 PKT PO DAILY, #1 PKT Doxycycline Hyclate (Doxycycline Hyclate) 100 Mg Cap 100 MG PO BID for 7 Days, #14 CAP Continued Medications: Ascorbic Acid (Vitamin C) 100 Mg Chw 100 MG PO DAILY Aspirin (Aspirin Ec) 81 Mg Tab 81 MG PO DAILY Docusate Sodium (Docusate Sodium) 100 Mg Cap 100 MG PO BID PRN for CONSTIPATION for 10 Days, #10 CAP Hydralazine HCl (Hydralazine HCl) 50 Mg Tab 25 MG PO TID for 10 Days, #30 TAB 2 Refills Isosorbide Mononitrate Ext Rel (Imdur Ext Rel) 60 Mg Ertab 60 MG PO QAM, TAB Metoprolol Tartrate (Metoprolol Tartrate) 50 Mg Tab 12.5 MG PO BID for 30 Days, #15 TAB 2 Refills Multivitamins/Minerals (Mvi With Minerals) Tab 1 TAB PO DAILY, TAB Nitroglycerin (Nitrostat) 0.4 Mg Tab 0.4 MG UT UD PRN for Chest Pain, BTL Admission Information HPI (per Admitting provider): DATE OF ADMISSION: 10/30/2017 CHIEF COMPLAINT: Shortness of breath. HISTORY OF PRESENT ILLNESS: This is an 82-year-old female with past medical history significant for end-stage renal disease on dialysis, history of hyperthyroidism of renal origin, iron deficiency anemia, hypertension, diastolic dysfunction, mitral regurgitation; was brought in from dialysis because of hypoxia. The patient says since last 3 weeks she has cough and she saw her family doctor on 27 of October, and chest x-ray showed possible pneumonia and she was prescribed doxycycline. The cough is getting better, but today at dialysis she suddenly felt short of breath and was hypoxic and was desaturated, and was brought into the ER. In the ER, she is doing fine. She is saturating fine at 96% on room air. Denies any chest pain during the episode or currently. No fever, no chills, no headaches, no dizziness, no blurred vision, no nausea, no vomiting. Appetite is okay. No abdominal pain. Usually constipated, but last bowel movement was yesterday. Does not make much urine. No burning micturition. Currently resting comfortably, and hemodynamically stable. She does not know why she felt short of breath during the dialysis. ALLERGIES: No known drug allergies. PAST MEDICAL HISTORY: As mentioned above. PAST SURGICAL HISTORY: Catheter placement in the right IJ perm catheter for dialysis on December 2016. MEDICATIONS: The patient currently is on doxycycline 100 mg p.o. b.i.d., Robitussin DM 5 mL every 4 hours p.r.n., hydralazine 25 mg p.o. t.i.d., Lopressor 12.5 mg p.o. b.i.d., Imdur 60 mg p.o. daily, Zofran 4 mg every 6 hours p.r.n., Senokot 8.6 mg tablet 3 tablets by mouth every 3 days p.r.n., Nitrostat 0.4 mg sublingual p.r.n., aspirin 81 mg p.o. daily, multivitamins 1 tablet p.o. daily. FAMILY HISTORY: Significant for father had heart disorder. SOCIAL HISTORY: Never smoked. No alcohol use. No drug use. Single. REVIEW OF SYMPTOMS: As per HPI. Rest of review of systems negative. PHYSICAL EXAMINATION: GENERAL: The patient is old and frail, not in distress. VITAL SIGNS: Temperature 36.5, pulse 80, respiratory rate 20, blood pressure 156/57, oxygen 98% on room air. HEENT: No pallor, no icterus. Pupils equal, round, and reactive to light. NECK: No JVD, no neck masses, no carotid bruits. CARDIOVASCULAR: S1, S2 heard. Regular rate and rhythm. No murmur, no gallop. RESPIRATORY SYSTEM: No accessory muscle use. No wheezing. Mild bibasilar crackles. ABDOMEN: Soft, bowel sounds present, nontender. No distention. CENTRAL NERVOUS SYSTEM: Cranial nerves II-XII grossly intact. Nonfocal. EXTREMITIES: Bilateral lower extremity present. LABORATORY DATA: WBC 8.3, hemoglobin 10.7, hematocrit 34, platelets 373. Sodium 134, potassium 3, chloride 97, CO2 22, BUN 10, creatinine 1.5, serum glucose 85, calcium 9.6, total bilirubin 0.4, AST 19, ALT 16, alkaline phosphatase 46, troponin 0.016, BNP greater than 35,000. PT 11.3, INR 1.1, PTT 28.8. Chest x-ray: Bibasilar atelectasis, small pleural effusions. EKG: Normal sinus rhythm with a rate of 88, right bundle branch block seen, ST depression in lateral leads ASSESSMENT AND PLAN: This is an 82-year-old female who presents with shortness of breath and found to have elevated troponin. 1. Hypoxic during dialysis, but currently is stable, asymptomatic, no chest pain. The elevation of mild troponin most likely demand ischemia from hypoxia. EKG changes. We will repeat EKG, follow echocardiogram, and follow serial cardiac enzymes. consult cardiology in am . low dose iv heparin.Close monitoring in tele floor. 2. Possible pneumonia. Recently was placed on doxycycline by family doctor because she was having cough for the last 3 weeks and for questionable bibasilar atelectasis versus pneumonia. She says she is improved since on doxycycline. We will continue doxycycline, also place on IV Rocephin and monitor and also cough syrup. 3. End-stage renal disease, on hemodialysis. We will consult nephrology 4. Hypertension. Continue hydralazine, metoprolol, Lopressor, Imdur, and monitor the blood pressure. 5. Chronic diastolic dysfunction. The patient is on dialysis. 6. Iron deficiency anemia. We will follow the labs. 7. Deep venous thrombosis prophylaxis. Sequential compression devices and TEDs. 8. Disposition: Observation on tele floor. Expect to discharge home and follow with her family doctor. Level 1 full code. Hospital Course This is an 82 year old female with a PMH of HTN, ESRD on hemodialysis M-W-, moderate mitral regurgitation, chronic diastolic dysfunction, anemia of kidney disease and iron deficiency - presents with cough and hypoxia Hypoxic Episode secondary to CAP vs. Acute Bronchitis patient was sent to the ED due to hypoxia at dialysis patient was recently diagnosed with likely pneumonia and started on doxycycline cough and sputum production persist CXR on 10/30 does not suggest any pneumonia, no white count, no fever we can continue doxycycline at this time; will d/c Rocephin she has been weaned off of O2 and saturating well on room air will give 20mg of prednisone for bronchospasm - and likely start a medrol dosepak on discharge cough medications PRN Elevated Troponin likely secondary to ESRD has had elevated troponin in the past echo reviewed, mild diastolic dysfunction, moderate mitral regurgitation EKG looks similar to ones in May 2017; with PVCs will stop IV heparin cancel cardiology consultation clinically denies any symptoms HTN blood pressure is labile will continue home medications likely elevated periods during coughing fits DVT ppx SCDs FULL CODE possible d/c home today (10/31) depending on clinical picture Total time spent on discharge = 40 minutes This includes examination of the patient, discharge planning, medication reconciliation, and communication with other providers. Discharge Instructions Please follow-up with your primary care physician - you will receive a phone call with a date/time * You will be discharged on doxycycline (antibiotic) - take this twice a day for seven days - you can crush these pills * You will also be discharged on a medrol dosepak (steroids) - please follow the pack for instructions - you can crush these as well
[2017-10-31 17:03] VITALS: BP 131/72; PULSE 86; TEMP 36.5; O2SAT 95
[2017-10-31] MEDS ORDERED: BOOST BREEZE NUTRITION DRINK 1 BOX PO SCH (21:00)
[2017-11-01] MEDS ORDERED: MULTIVITAMINS W/MINERALS 15ML UDP PO SCH (09:00)
[2017-11-01] MEDS ORDERED: ASPIRIN 81 MG CHEW PO SCH (09:00)
== END 2017-10-31 19:15 | disposition home or self-care (01) ==
LOC: EDBD 14:13 → C.EDC 14:14 → C.2T 16:51 → ENRESERV 17:07
PROVIDERS: ADMIT Family Medicine; ATTEND Family Medicine
DX: R06.02 Shortness of breath (principal); N18.6 End stage renal disease; Z99.2 Dependence on renal dialysis; R79.89 Other specified abnormal findings of blood chemistry; Z79.82 Long term (current) use of aspirin; Z79.899 Other long term (current) drug therapy; E05.90 Thyrotoxicosis, unspecified without thyrotoxic crisis or storm; D50.9 Iron deficiency anemia, unspecified; I10 Essential (primary) hypertension; I34.0 Nonrheumatic mitral (valve) insufficiency